=== PATIENT | female | born 1950 | race Caucasian/White ===

== ENCOUNTER 2016-09-13 13:46 | Emergency (ER) | payer MEDICARE, MEDICAID ==
[2016-09-13 13:55] VITALS: TEMP 97.9; O2SAT 98
--- NOTE | 2016-09-13 14:18 | C.PDOC ---
History Of Present Illness 66 yr old female with PMHx of arthritis, presents to the ER for evaluation of left hand pain and swelling over the 3rd and 4th finger, gradually developing over the past 3 weeks. However, patient states the pain has worsened over the past few days, " unable to close my hand completely due to pain and hand stiffness". Admits to seeing a specialist and was referred to occupational therapy. Patient denies trauma, injury, fever, chest pain, SOB, palpitation, shoulder pain, denies skin changes, redness, weakness, sensory or vascular deficits to Left hand. Ambulate to ED for evaluation, not in any apparent distress. Time Seen by Provider: 09/13/16 14:10 Chief Complaint (Nursing): Finger,Hand,&Wrist History Per: Patient History/Exam Limitations: no limitations Onset/Duration Of Symptoms: Gradual (3 weeks ) Past Medical History Reviewed: Historical Data, Nursing Documentation, Vital Signs Vital Signs: Last Vital Signs Temp 97.9 F 09/13/16 13:52 Pulse 78 09/13/16 14:57 Resp 18 09/13/16 14:57 BP 135/75 09/13/16 14:57 Pulse Ox 98 09/13/16 14:57 - Medical History PMH: Arthritis, Asthma, Bronchitis, COPD, Diabetes, HTN, Pneumonia, Seizures ( about 20 yrs. ago) Surgical History: Appendectomy, Cholecystectomy - [facility] Procedures BUNIONECTOMY NEC (09/23/14) INJECT STEROID (09/23/14) PARTIAL OSTECTOMY NEC (09/23/14) PER NERVE ADHESIOLYS NEC (09/23/14) Family History: States: No Known Family Hx - Social History Hx Tobacco Use: Yes Hx Alcohol Use: No Hx Substance Use: No - Immunization History Hx Influenza Vaccination: Yes Hx Pneumococcal Vaccination: Yes Review Of Systems Except As Marked, All Systems Reviewed And Found Negative. Constitutional: Negative for: Fever Cardiovascular: Negative for: Chest Pain Respiratory: Negative for: Shortness of Breath Musculoskeletal: Positive for: Hand Pain (Left hand, over the 3rd and 4th finger ). Negative for: Neck Pain, Shoulder Pain, Arm Pain, Back Pain Neurological: Negative for: Weakness, Numbness Physical Exam - Physical Exam Appears: Well, Non-toxic, No Acute Distress Skin: Warm, Dry, No Rash, No Ecchymosis Head: Normacephalic Extremity: Normal ROM (Left hand), Capillary Refill (<2), No Deformity, Other ( Left Hand: Mild diffuse tenderness over the 3rd & 4th phalanx with mild non specific diffuse edema. Deformity to Left hand noted c/w OA No erythema, no warmth to touch to Left hand.) Pulses: Left Radial: Normal, Right Radial: Normal Neurological/Psych: Oriented x3, Normal Speech, Normal Motor, Normal Sensation, Normal Reflexes ED Course And Treatment O2 Sat by Pulse Oximetry: 98 (RA) Pulse Ox Interpretation: Normal - Other Rad Left hand X-Ray: Interpreted by Me, Viewed By Me Interpretation: (+) osteopenia, severe DJD Progress Note: On re-evaluation, pt is afebrile, hemodynamicaly stable. NOn- toxic. Left hand: exam c/w arthralgia likely due to OA. NO skin changes. FAROM of Riht hand, no neurovascular deficits. Xray or left hand review (+) severe DD , osteopenia. No acute fx or dislocation. Pt advised and ref. to Fu with PMD, Rheumatology in 1-2 days for re-=eavl and further tx. return to ED if any worsening or new changes. Medical Decision Making Medical Decision Making: PLAN: * X-Ray - Left Hand Disposition Counseled Patient/Family Regarding: Diagnosis, Need For Followup, Rx Given - Disposition Referrals: Antony Marie DO [Doctor Oste[facility]] - Disposition: HOME/ ROUTINE Disposition Time: 14:42 Condition: STABLE Additional Instructions: Follow up with Rheumatology in 2-3 days for re-evaluation and further treatment. Return to ED if any worsening or new changes. Prescriptions: Meloxicam [Mobic] 7.5 mg PO DAILY #14 tab Instructions: Osteoarthritis (ED) Print Language: [place] - Clinical Impression Clinical Impression: Hand pain, Arthritis - PA / ASSOCIATE MANAGER / Resident Statement / has reviewed & agrees with the documentation as recorded. - Scribe Statement The provider has reviewed the documentation as recorded by the Scribe Macarena Hinton All medical record entries made by the Scribe were at my direction and personally dictated by me. I have reviewed the chart and agree that the record accurately reflects my personal performance of the history, physical exam, medical decision making, and the department course for this patient. I have also personally directed, reviewed, and agree with the discharge instructions and disposition.
[2016-09-13 14:57] VITALS: BP 135/75; PULSE 78; RESP 18
--- NOTE | 2016-09-13 15:21 | RAD ---
PROCEDURE: Left Hand Radiographs. HISTORY: pain COMPARISON: None. FINDINGS: BONES: . No fracture. JOINTS: osteoarthritic changes. SOFT TISSUES: A well corticated 3 x 1 mm ossification/calcification projects over the dorsal lateral soft tissues bordering the 5th metacarpal head on the oblique view OTHER FINDINGS: None. IMPRESSION: Degenerative joint-space narrowing proximal and distal interphalangeal joints. No prominent spurring seen. No gross erosions. Periarticular ossification/ calcification dorsal lateral aspect-5th metacarpal head level
== END 2016-09-13 14:58 | disposition home or self-care (01) ==
LOC: C.ER 13:46
DX: M13.842 Other specified arthritis, left hand (principal); M79.642 Pain in left hand

== ENCOUNTER 2017-08-18 13:02 | Emergency (ER) | payer MEDICARE, MEDICAID ==
[2017-08-18] MEDS ORDERED: MethylPREDNISolone 40 mg Vial IVP STA (13:45)
[2017-08-18] MEDS ORDERED: Albuterol-Ipratrop 3 mg / 0.5 (3 ml) UD INH STA (13:45)
[2017-08-18] MEDS ORDERED: Albuterol-Ipratrop 3 mg / 0.5 (3 ml) UD ONE (13:51)
[2017-08-18] MEDS ORDERED: Magnesium Sulfate 1 gm in D5W 1 GM/100 ML BAG IVPB ONE ×2 (13:51→14:32)
[2017-08-18] MEDS: Magnesium Sulfate 1 gm in D5W 1 GM/100 ML BAG IVPB SCH ×2 (13:55→14:31)
--- NOTE | 2017-08-18 14:00 | RAD ---
Chest x-ray single frontal view History: Shortness of breath. Comparison: 06/22/2012 Findings: Surgical clips in the right axilla and projecting over the right hilar region. Biapical pleural thickening with upper lobe granulomatous changes. Diffuse increased interstitial lung markings. Tortuous aorta. Degenerative changes in the spine. Bibasilar breast and nipple shadows. Impression: Surgical clips in the right axilla and projecting over the right hilar region. Biapical pleural thickening with upper lobe granulomatous changes. Diffuse increased interstitial lung markings. Tortuous aorta.
[2017-08-18 14:01] LABS: BASO # 0.1 K/uL (0.0-0.2); BASO % 0.7 % (0.0-2.0); EOS % 0.4 % (0.0-4.0); HEMOGLOBIN 10.9 g/dL (11.0-16.0); LYMPH # 2.2 K/uL (1.0-4.3); LYMPH % 24.7 % (20.0-40.0); MEAN CELL VOLUME 74.2 fL (81.0-99.0); MEAN CORPUSCULAR HEMOGLOBIN 24.1 pg (27.0-31.0); MEAN CORPUSCULAR HGB CONC 32.5 g/dL (33.0-37.0); MEAN PLATELET VOLUME 8.9 fL (7.2-11.7); MONO % 11.5 % (0.0-10.0); NEUT # 5.7 K/uL (1.8-7.0); NEUT % 62.7 % (50.0-75.0); RBC 4.51 Mil/uL (3.80-5.20); RED CELL DISTRIBUTION WIDTH 17.4 % (11.5-14.5); WHITE BLOOD COUNT 9.1 K/uL (4.8-10.8)
[2017-08-18 14:16] LABS: ALB/GLOB RATIO 1.1 (1.0-2.1); ALBUMIN 4.1 g/dL (3.5-5.0); ALT/SGPT 27 U/L (9-52); AST/SGOT 35 U/L (14-36); BLOOD UREA NITROGEN 10 mg/dL (7-17); CALCIUM 8.9 mg/dl (8.6-10.4); GFR AFRICAN-AMERICAN > 60; GFR NON-AFRICAN AMERICAN > 60
[2017-08-18 14:25] LABS: B-TYPE NATRIURETIC PEPTIDE 34.2 pg/mL (0-900)
[2017-08-18 15:36] VITALS: BP 117/59; PULSE 87; TEMP 98.2; O2SAT 94
[2017-08-18 15:37] VITALS: RESP 20
--- NOTE | 2017-08-18 16:17 | C.PDOC ---
History Of Present Illness 67 y/o female with history of COPD presents to ED with c/o sob for 1 month and cough for 1 week. Patient states she takes medication daily for COPD and currently denies pain, fever, nausea, vomiting, recent travel, sick contacts or any other complaints at this time. Chief Complaint (Nursing): Shortness Of Breath History Per: Patient History/Exam Limitations: no limitations Onset/Duration Of Symptoms: Days Current Symptoms Are (Timing): Still Present Initiating Event: Upper Respiratory Illness Past Medical History Reviewed: Historical Data, Nursing Documentation, Vital Signs Vital Signs: Last Vital Signs Temp 98.2 F 08/18/17 15:11 Pulse 87 08/18/17 15:11 Resp 20 08/18/17 15:11 BP 117/59 L 08/18/17 15:11 Pulse Ox 94 L 08/18/17 16:20 - Medical History PMH: Arthritis, Asthma, Bronchitis, COPD, Diabetes, HTN, Pneumonia, Seizures ( about 20 yrs. ago) Surgical History: Appendectomy, Cholecystectomy - [facility] Procedures BUNIONECTOMY NEC (09/23/14) INJECT STEROID (09/23/14) PARTIAL OSTECTOMY NEC (09/23/14) PER NERVE ADHESIOLYS NEC (09/23/14) Family History: States: No Known Family Hx - Social History Hx Tobacco Use: Yes Hx Alcohol Use: No Hx Substance Use: No - Immunization History Hx Influenza Vaccination: Yes Hx Pneumococcal Vaccination: Yes Review Of Systems Constitutional: Negative for: Fever, Chills Cardiovascular: Negative for: Chest Pain Respiratory: Positive for: Cough, Shortness of Breath Gastrointestinal: Negative for: Nausea, Vomiting Skin: Negative for: Rash Physical Exam - Physical Exam Appears: Non-toxic, No Acute Distress Skin: Warm, Dry, No Rash Head: Atraumatic, Normacephalic Eye(s): bilateral: Normal Inspection Oral Mucosa: Moist Throat: Normal, No Erythema, No Exudate Neck: Normal ROM, Supple Cardiovascular: Rhythm Regular Respiratory: No Rales, No Rhonchi, Wheezing (mild expiratory bilaterally) Gastrointestinal/Abdominal: Soft, No Tenderness, No Guarding, No Rebound Extremity: Normal ROM, No Pedal Edema, Capillary Refill (<2 seconds) Neurological/Psych: Oriented x3, Normal Speech ED Course And Treatment - Laboratory Results Result Diagrams: 08/18/17 13:45 08/18/17 13:45 ECG: Interpreted By Me, Viewed By Me ECG Rhythm: Sinus Rhythm Interpretation Of ECG: NSR, Right axis deviation Rate From EC (BPM) O2 Sat by Pulse Oximetry: 94 (RA) Medical Decision Making Medical Decision Making: On re eval lungs clear and patient feels better, agrees with plan of discharge. Disposition - [facility] - Disposition: HOME/ ROUTINE Disposition Time: 15:20 Condition: IMPROVED Additional Instructions: TOMI TEMPLE, thank you for letting us take care of you today. Your provider was Antony Ojeda DO and you were treated for COPD. The emergency medical care you received today was directed at your acute symptoms. If you were prescribed any medication, please fill it and take as directed. It may take several days for your symptoms to resolve. Return to the Emergency Department if your symptoms worsen, do not improve, or if you have any other problems. Please contact your doctor or call one of the physicians/clinics you have been referred to that are listed on the Patient Visit Information form that is included in your discharge packet. Bring any paperwork you were given at discharge with you along with any medications you are taking to your follow up visit. Our treatment cannot replace ongoing medical care by a primary care provider outside of the emergency department. Thank you for allowing the [facility] team to be part of your care today. Follow up with your primary care doctor or your scientist propagator in 2-3 days for re -evaluation and further management. TOMI TEMPLE, alvin por dejarnos atenderlo hoy. Butler proveedor fue Antony Ojeda DO y usted recibi tratamiento para la EPOC. La atencin mdica de emergencia que recibi hoy estaba dirigida a dayna sntomas agudos. Si le prescribieron algn medicamento, llnelo y tome segn las indicaciones. Dayna s ntomas pueden tardar varios husain en resolverse. Regrese al Departamento de Emergencia si dayna sntomas empeoran, no mejoran o si tiene algn otro problema. Comunquese con butler mdico o llame a aric de los mdicos / clnicas a los que fischer sido referido que figura en el formulario de Informacin de visita del paciente que se incluye en butler paquete de marie. Traiga todos los documentos que recibi al momento del marie junto con los medicamentos que est tomando en butler visita de seguimiento. Nuestro tratamiento no puede reemplazar la atencin mdica en curso por un proveedor de atencin primaria fuera del departamento de emergencia. Alvin por permitir que el equipo de [facility] m-spatial sea parte de butler cuidado hoy. Anam un seguimiento con butler mdico de atencin primaria o butler neumlogo en 2 o 3 d as para tavon nueva evaluacin y administracin adicional. Prescriptions: Albuterol HFA [Ventolin HFA 90 mcg/actuation (8 g)] 2 puff IH [id number] PRN #1 puff PRN Reason: Wheezing Azithromycin [Zithromax] 250 mg PO DAILY #6 tab predniSONE [Prednisone] 40 mg PO DAILY #10 tab Instructions: Chronic Obstructive Pulmonary Disease (COPD), Including Emphysema Forms: Gen Discharge Inst Greenlandic, [employer] (Greenlandic) Print Language: CITIZEN OF [place] - Clinical Impression Clinical Impression: COPD exacerbation - Scribe Statement The provider has reviewed the documentation as recorded by the Scribe Abby Moreno All medical record entries made by the Scribe were at my direction and personally dictated by me. I have reviewed the chart and agree that the record accurately reflects my personal performance of the history, physical exam, medical decision making, and the department course for this patient. I have also personally directed, reviewed, and agree with the discharge instructions and disposition.
--- NOTE | 2017-08-21 18:36 | CARD ---
APPROVED REPORT EKG Measurement Heart [id number] HI 154P78 [id number] <Conclusion> Sinus tachycardia Right axis deviation Poor R wave progression Abnormal ECG
== END 2017-08-18 15:56 | disposition home or self-care (01) ==
LOC: C.ER 13:02
DX: J44.1 Chronic obstructive pulmonary disease with (acute) exacerbation (principal)

== ENCOUNTER 2017-08-18 23:16 | Inpatient (IN) | payer MEDICARE, MEDICAID ==
[2017-08-19] MEDS ORDERED: Albuterol-Ipratrop 3 mg / 0.5 (3 ml) UD INH STA (00:16)
[2017-08-19] MEDS ORDERED: Albuterol-Ipratrop 3 mg / 0.5 (3 ml) UD ONE (00:26)
[2017-08-19 00:59] LABS: BASO % 0.3 % (0.0-2.0); HEMOGLOBIN 10.7 g/dL (11.0-16.0); LYMPH % 13.3 % (20.0-40.0); MEAN CELL VOLUME 74.2 fL (81.0-99.0); MEAN CORPUSCULAR HEMOGLOBIN 23.9 pg (27.0-31.0); MEAN CORPUSCULAR HGB CONC 32.2 g/dL (33.0-37.0); MEAN PLATELET VOLUME 8.8 fL (7.2-11.7); MONO # 0.2 K/uL (0.0-0.8); MONO % 2.5 % (0.0-10.0); NEUT # 6.3 K/uL (1.8-7.0); NEUT % 83.9 % (50.0-75.0); RBC 4.5 Mil/uL (3.80-5.20); WHITE BLOOD COUNT 7.5 K/uL (4.8-10.8)
[2017-08-19 01:07] LABS: INR 1.2; PROTHROMBIN TIME 13.4 SECONDS (9.7-12.2)
[2017-08-19 01:15] LABS: ALB/GLOB RATIO 1.1 (1.0-2.1); ALBUMIN 3.9 g/dL (3.5-5.0); ALT/SGPT 26 U/L (9-52); AST/SGOT 35 U/L (14-36); BLOOD UREA NITROGEN 13 mg/dL (7-17); CALCIUM 9.3 mg/dl (8.6-10.4); GFR AFRICAN-AMERICAN > 60; GFR NON-AFRICAN AMERICAN > 60
--- NOTE | 2017-08-19 01:50 | C.PDOC ---
History Of Present Illness 67 year old female with a Hx of COPD presents to the ER with a complaint of SOB for the past 1 month. Patient is also complaining of her chronic neck pain. Patient was seen earlier today in the ER for the same complaint, she improved with treatments and discharged home, however, returns with recurring SOB. Denies fever, cough, or chest pain. Chief Complaint (Nursing): Shortness Of Breath History Per: Patient History/Exam Limitations: no limitations Onset/Duration Of Symptoms: Days Current Symptoms Are (Timing): Still Present Initiating Event: Other (Not known) Current Respiratory Medications: None Associated Symptoms: denies: Fever, Chest Pain, Other (Chest pain) Recent travel outside of the [place]: No Past Medical History Reviewed: Historical Data, Nursing Documentation, Vital Signs Vital Signs: Last Vital Signs Temp 98.3 F 08/19/17 23:45 Pulse 97 H 08/19/17 23:45 Resp 20 08/19/17 23:45 BP 112/55 L 08/19/17 23:45 Pulse Ox 98 08/19/17 23:45 - Medical History PMH: Arthritis, Asthma, Bronchitis, COPD, Diabetes, HTN, Pneumonia, Seizures ( about 20 yrs. ago) Surgical History: Appendectomy, Cholecystectomy - [facility] Procedures BUNIONECTOMY NEC (09/23/14) INJECT STEROID (09/23/14) PARTIAL OSTECTOMY NEC (09/23/14) PER NERVE ADHESIOLYS NEC (09/23/14) Family History: States: Unknown Family Hx - Social History Hx Tobacco Use: Yes Hx Alcohol Use: No Hx Substance Use: No - Immunization History Hx Influenza Vaccination: Yes Hx Pneumococcal Vaccination: Yes Review Of Systems Constitutional: Negative for: Fever Cardiovascular: Negative for: Chest Pain Respiratory: Positive for: Shortness of Breath. Negative for: Cough Gastrointestinal: Negative for: Nausea, Vomiting Musculoskeletal: Positive for: Neck Pain Physical Exam - Physical Exam Appears: Non-toxic Skin: Normal Color, Warm, Dry Head: Atraumatic, Normacephalic Eye(s): bilateral: Normal Inspection Oral Mucosa: Moist Neck: Normal, No Midline Cervical Tenderness, No Paracervical Tenderness, Supple Chest: Symmetrical, No Tenderness Cardiovascular: Rhythm Regular Respiratory: No Rales, No Rhonchi, Wheezing (Mild expiratory), Other (Good air entry) Gastrointestinal/Abdominal: Soft, No Tenderness Back: No CVA Tenderness Neurological/Psych: Oriented x3, Normal Speech ED Course And Treatment - Laboratory Results Result Diagrams: 08/20/17 07:50 08/20/17 07:50 O2 Sat by Pulse Oximetry: 93 (Room air) Progress Note: Case discussed with Dr. Faith who will admit patient to her service. Disposition - Disposition Disposition: HOSPITALIZED Disposition Time: 00:20 Condition: STABLE - Clinical Impression Clinical Impression: COPD exacerbation - Scribe Statement The provider has reviewed the documentation as recorded by the Scribshorty Huerta All medical record entries made by the Keanuibe were at my direction and personally dictated by me. I have reviewed the chart and agree that the record accurately reflects my personal performance of the history, physical exam, medical decision making, and the department course for this patient. I have also personally directed, reviewed, and agree with the discharge instructions and disposition.
[2017-08-19] MEDS ORDERED: DiphenhydrAMINE 50 mg/ml Inj IVP ONE (02:47)
[2017-08-19] MEDS: Albuterol-Ipratrop 3 mg / 0.5 (3 ml) UD INH SCH ×4 (03:58→19:34)
[2017-08-19] MEDS ORDERED: (Novolin R) Insulin Human Regular 100 units/ml vial SC SCH (07:30)
[2017-08-19] MEDS: Budesonide 0.25 mg/2 ml Inhal Susp UD INH SCH ×2 (08:03→19:34)
[2017-08-19 08:36] VITALS: RESP 20
[2017-08-19] MEDS: MethylPREDNISolone 40 mg Vial IVP SCH ×2 (09:28→22:24)
[2017-08-19] MEDS: Pantoprazole 40 mg EC Tab PO SCH (09:28)
[2017-08-19] MEDS: (Novolin R) Insulin Human Regular 100 units/ml vial SC SCH ×4 (09:29→21:40)
[2017-08-19] MEDS: Enoxaparin 40 mg Syringe SC SCH (10:42)
[2017-08-19] MEDS: Azithromycin 500 MG in Sodium Chloride 0.9% 250 ML IVPB SCH (10:42)
--- NOTE | 2017-08-19 12:47 | CP.PCM.CON ---
History of Present Illness - History of Present Illness History of Present Illness: reason for consultation: shortness of breath 67-year-old female with history of COPD, diabetes, hypertension, seizure disorderwho presented to the emergency room with a complaint of SOB for the past 1 month. Patient is also complaining of her chronic neck pain. Patient was seen earlier today in the ER for the same complaint, she improved with treatments and discharged home, however, returns with recurring SOB. Review of Systems - Review of Systems All systems: reviewed and no additional remarkable complaints except (shortness of breath) Past Patient History - Infectious Disease Hx of Infectious Diseases: None - Tetanus Immunizations Tetanus Immunization: Unknown - Past Medical History & Family History Past Medical History?: Yes - Past Social History Smoking Status: Light Smoker < 10 Cigarettes Daily - CARDIAC Hx Hypertension: Yes - PULMONARY Hx Asthma: Yes Hx Bronchitis: Yes Hx Chronic Obstructive Pulmonary Disease (COPD): Yes Hx Pneumonia: Yes - NEUROLOGICAL Hx Seizures: Yes (about 20 yrs. ago) - HEENT Hx HEENT Problems: Yes Hx Cataracts: Yes Other/Comment: Use eyeglasses for reading - RENAL Hx Chronic Kidney Disease: No - ENDOCRINE/METABOLIC Hx Endocrine Disorders: Yes Hx Diabetes Mellitus Type 2: Yes - HEMATOLOGICAL/ONCOLOGICAL Hx Human Immunodeficiency Virus (HIV): No - INTEGUMENTARY Hx Dermatological Problems: No - MUSCULOSKELETAL/RHEUMATOLOGICAL Hx Arthritis: Yes - GASTROINTESTINAL Hx Gastrointestinal Disorders: No - GENITOURINARY/GYNECOLOGICAL Hx Genitourinary Disorders: No - PSYCHIATRIC Hx Substance Use: No - SURGICAL HISTORY Hx Appendectomy: Yes Hx Cholecystectomy: Yes - ANESTHESIA Hx Anesthesia: Yes Hx Anesthesia Reactions: No Hx Malignant Hyperthermia: No Meds Allergies/Adverse Reactions: Allergies Allergy/AdvReac Type Severity Reaction Status Date / Time iron Allergy REDNESS Verified 08/18/17 13:10 - Medications Medications: Current Medications Albuterol/Ipratropium (Duoneb 3 Mg/0.5 Mg (3 Ml) Ud) 3 ml INH RQ6 [facility] Last Admin: 08/19/17 08:03 Dose: 3 ml Amlodipine Besylate (Norvasc) 5 mg PO DAILY [facility] Last Admin: 08/19/17 09:27 Dose: 5 mg Aspirin (Ecotrin) 81 mg PO DAILY [facility] Last Admin: 08/19/17 09:28 Dose: 81 mg Budesonide (Pulmicort Respules) 0.25 mg INH RQ12 [facility] Last Admin: 08/19/17 08:03 Dose: 0.25 mg Enoxaparin Sodium (Lovenox) 40 mg SC DAILY [facility] Last Admin: 08/19/17 10:42 Dose: 40 mg Glimepiride (Amaryl) 2 mg PO ACB [facility] Last Admin: 08/19/17 09:27 Dose: 2 mg Azithromycin 500 mg/ Sodium (Chloride) 250 mls @ 250 mls/hr IVPB DAILY ANUJA PRN Reason: Protocol Last Admin: 08/19/17 10:42 Dose: 250 mls/hr Insulin Human Regular (Novolin R) 0 unit SC ACHS [facility]UJA PRN Reason: Protocol Last Admin: 08/19/17 12:03 Dose: 2 units Methylprednisolone (Solu-Medrol) 40 mg IVP Q12 [facility] Last Admin: 08/19/17 09:28 Dose: 40 mg Pantoprazole Sodium (Protonix Ec Tab) 40 mg PO DAILY [facility] Last Admin: 08/19/17 09:28 Dose: 40 mg Pregabalin (Lyrica) 25 mg PO BID [facility] Last Admin: 08/19/17 05:33 Dose: 25 mg Fluticasone/Salmeterol (Advair Diskus 500/50) 1 puff INH RQ12 [facility] Physical Exam - Head Exam Head Exam: ATRAUMATIC, NORMOCEPHALIC - ENT Exam ENT Exam: Mucous Membranes Moist - Neck Exam Neck exam: Positive for: Normal Inspection - Respiratory Exam Respiratory Exam: Decreased Breath Sounds - Cardiovascular Exam Cardiovascular Exam: REGULAR RHYTHM - GI/Abdominal Exam GI & Abdominal Exam: Normal Bowel Sounds, Soft - Extremities Exam Extremities exam: Positive for: normal inspection - Neurological Exam Neurological exam: Alert, Oriented x3 Results - Vital Signs Recent Vital Signs: Last Vital Signs Temp 98.3 F 08/19/17 08:35 Pulse 92 H 08/19/17 08:35 Resp 20 08/19/17 08:35 BP 123/40 L 08/19/17 08:35 Pulse Ox 95 08/19/17 08:35 - Labs Result Diagrams: 08/19/17 00:46 08/19/17 01:02 Labs: Laboratory Results - last 24 hr 08/18/17 08/19/17 08/19/17 23:57 00:46 01:02 WBC 7.5 RBC 4.50 Hgb 10.7 L Hct 33.4 L MCV 74.2 L MCH 23.9 L MCHC 32.2 L RDW 17.0 H Plt Count 172 MPV 8.8 Neut % (Auto) 83.9 H Lymph % (Auto) 13.3 L [place] % (Auto) 2.5 Eos % (Auto) 0.0 Baso % (Auto) 0.3 Neut # (Auto) 6.3 Lymph # (Auto) 1.0 [place] # (Auto) 0.2 Eos # (Auto) 0.0 Baso # (Auto) 0.0 PT 13.4 H INR 1.2 APTT 34 Sodium Potassium Chloride Carbon Dioxide Anion Gap BUN Creatinine Est GFR ( Amer) Est GFR (Non-Af Amer) POC Glucose (mg/dL) 232 H Random Glucose Calcium Total Bilirubin AST ALT Alkaline Phosphatase Total Protein Albumin Globulin Albumin/Globulin Ratio 08/19/17 08/19/17 08/19/17 01:02 06:27 11:22 WBC RBC Hgb Hct MCV MCH MCHC RDW Plt Count MPV Neut % (Auto) Lymph % (Auto) [place] % (Auto) Eos % (Auto) Baso % (Auto) Neut # (Auto) Lymph # (Auto) [place] # (Auto) Eos # (Auto) Baso # (Auto) PT INR APTT Sodium 142 Potassium 4.0 Chloride 104 Carbon Dioxide 27 Anion Gap 15 BUN 13 Creatinine 0.8 Est GFR ( Amer) > 60 Est GFR (Non-Af Amer) > 60 POC Glucose (mg/dL) 163 H 242 H Random Glucose 237 H Calcium 9.3 Total Bilirubin 0.5 AST 35 ALT 26 Alkaline Phosphatase 145 H D Total Protein 7.5 Albumin 3.9 Globulin 3.6 Albumin/Globulin Ratio 1.1 Assessment & Plan (1) COPD exacerbation Status: Acute Comment: 67-year-old female with long history of smoking complaining of shortness of breath for the last 1 month. Continue IV steroids. Nebulizer treatment. Pulmonary function test. Long-acting bronchodilators. Continue azithromycin. Patient advised to stop smoking
[2017-08-19] MEDS: Fluticasone-Salmeterol 500-50mcg Diskus INH SCH (19:33)
[2017-08-20] MEDS: Albuterol-Ipratrop 3 mg / 0.5 (3 ml) UD INH SCH ×4 (04:53→20:37)
--- NOTE | 2017-08-20 06:43 | HP ---
The patient is a 67-year-old female. The patient was seen and examined on the bedside on 08/19/2017. Daughter was sitting on the bedside also. CHIEF COMPLAINT: Shortness of breath, coughing. HISTORY OF PRESENT ILLNESS: Ms. Claudette Major is a 67-year-old lady with history of COPD who came to the Emergency Room complaining of shortness of breath for the past one month. The patient is also complaining of chronic neck pain. The patient was seen earlier in ER at the day of admission for the same complaint, which improved with treatment, discharged home, then returns with recurrent shortness of breath. No fever, no chills. No nausea or vomiting, diarrhea. No hematuria or hematochezia. No swelling of leg. No chest pain, no palpitation. PAST MEDICAL HISTORY: Arthritis, asthma, bronchitis, COPD, diabetes mellitus, hypertension, pneumonia, seizures about 20 years ago, appendectomy, cholecystectomy, bunionectomy, partial osteectomy. FAMILY HISTORY: Father and mother, noncontributory. HABITS: Tobacco, yes. Alcohol, no. Substance abuse, no. REVIEW OF SYSTEMS: The patient was seen and examined at the bedside. Daughter was sitting at the bedside also. She did ask questions for me. Still having a little bit shortness of breath. Neck pain is better. No fever, no chills. No chest pain. No coughing. No nausea or vomiting. PHYSICAL EXAMINATION: VITAL SIGNS: Temperature 98, pulse 104, respiratory rate 20, blood pressure 133/53, pulse oximetry of 93. HEENT: Head, normocephalic and atraumatic. Eyes, PERRLA. Extraocular muscles intact. Conjunctivae clear. Nose patent. Mucous membranes moist. NECK: Supple. No carotid bruits. No thyromegaly. CHEST: Wheezing bilaterally. HEART: S1 and S2 positive. ABDOMEN: Soft. Bowel sounds present. No organomegaly. EXTREMITIES: No edema. No cyanosis. NEUROLOGICAL: The patient is awake, alert, moving all four extremities. No focal deficits. LABORATORY DATA: White blood cell is 7.5, hemoglobin 10.7, hematocrit 33.7, and platelets 172. Sodium 142, potassium 4, BUN 13, creatinine is 0.8, glucose 237. ASSESSMENT AND PLAN: 1. Ms. Claudette Major is a 67-year-old lady who came with exacerbation of chronic obstructive pulmonary disease, asthma, arthritis, bronchitis, diabetes mellitus, hypertension, pneumonia, seizures, appendectomy, cholecystectomy. She was seen two times in emergency room. First time got treatment and discharged home, but came back in the evening with the same complaints. Now, she is seen by Dr. Rajendra Bazan, bottle house quality control technician. 2. History of heavy smoking. oxygen nebulizers given, bronchodilators given, started antibiotics by me. Urged to quit smoking, discussion done with patient and patient's daughter. Nicotine patch is given. Appreciate Dr. Rajendra Bazan's input. We will follow. Ina Faith MD MTDD
[2017-08-20] MEDS: (Novolin R) Insulin Human Regular 100 units/ml vial SC SCH ×4 (08:02→21:23)
[2017-08-20 08:16] LABS: MEAN CELL VOLUME 74.6 fL (81.0-99.0); MEAN CORPUSCULAR HEMOGLOBIN 23.8 pg (27.0-31.0); MEAN PLATELET VOLUME 9.3 fL (7.2-11.7); RBC 4.19 Mil/uL (3.80-5.20)
[2017-08-20] MEDS: Budesonide 0.25 mg/2 ml Inhal Susp UD INH SCH ×2 (08:16→20:37)
[2017-08-20] MEDS: Fluticasone-Salmeterol 500-50mcg Diskus INH SCH ×2 (08:16→20:37)
[2017-08-20 08:34] LABS: IRON 13 ug/dL (37-170)
[2017-08-20 08:38] LABS: BLOOD UREA NITROGEN 23 mg/dL (7-17); CALCIUM 9.3 mg/dl (8.6-10.4); GFR AFRICAN-AMERICAN > 60; GFR NON-AFRICAN AMERICAN 55; HDL CHOLESTEROL 50 mg/dL (30-70)
[2017-08-20 08:44] LABS: % IRON SATURATION 2 (20-55); TOTAL IRON BINDING CAPACITY 538 ug/dL (250-450)
[2017-08-20 08:46] LABS: LDL CHOLESTEROL 60 mg/dL (0-129)
[2017-08-20 09:34] LABS: FOLATE 7.6 ng/mL
[2017-08-20] MEDS: Azithromycin 500 MG in Sodium Chloride 0.9% 250 ML IVPB SCH (09:57)
[2017-08-20] MEDS: Pantoprazole 40 mg EC Tab PO SCH (09:59)
[2017-08-20] MEDS: Enoxaparin 40 mg Syringe SC SCH (09:59)
[2017-08-20] MEDS: MethylPREDNISolone 40 mg Vial IVP SCH ×2 (09:59→21:23)
--- NOTE | 2017-08-20 17:54 | CP.PCM.PN ---
Subjective - Date & Time of Evaluation Date of Evaluation: 08/20/17 Time of Evaluation: 16:00 - Subjective Subjective: patient seen and examined Still complaining of shortness of breath , cough and wheezing Afebrile No chest pain Objective - Vital Signs/Intake and Output Vital Signs (last 24 hours): Temp Pulse Resp BP Pulse Ox 98.1 F 95 H 20 115/63 97 08/20/17 15:43 08/20/17 15:43 08/20/17 15:43 08/20/17 15:43 08/20/17 15:43 Intake and Output: 08/20/17 08/20/17 06:59 18:59 Intake Total 120 240 Balance 120 240 - Medications Medications: Current Medications Albuterol/Ipratropium (Duoneb 3 Mg/0.5 Mg (3 Ml) Ud) 3 ml INH RQ6 [facility] Last Admin: 08/20/17 12:59 Dose: Not Given Amlodipine Besylate (Norvasc) 5 mg PO DAILY [facility] Last Admin: 08/20/17 09:59 Dose: 5 mg Aspirin (Ecotrin) 81 mg PO DAILY [facility] Last Admin: 08/20/17 09:59 Dose: 81 mg Budesonide (Pulmicort Respules) 0.25 mg INH RQ12 [facility] Last Admin: 08/20/17 08:16 Dose: 0.25 mg Enoxaparin Sodium (Lovenox) 40 mg SC DAILY [facility] Last Admin: 08/20/17 09:59 Dose: 40 mg Glimepiride (Amaryl) 2 mg PO ACB [facility] Last Admin: 08/20/17 08:03 Dose: 2 mg Azithromycin 500 mg/ Sodium (Chloride) 250 mls @ 250 mls/hr IVPB DAILY [facility] PRN Reason: Protocol Last Admin: 08/20/17 09:57 Dose: 250 mls/hr Insulin Human Regular (Novolin R) 0 unit SC ACHS [facility] PRN Reason: Protocol Last Admin: 08/20/17 17:29 Dose: 2 units Methylprednisolone (Solu-Medrol) 40 mg IVP Q12 [facility] Last Admin: 08/20/17 09:59 Dose: 40 mg Nicotine (Nicoderm Cq) 1 patch TD DAILY [facility] Last Admin: 08/20/17 11:00 Dose: 1 patch Pantoprazole Sodium (Protonix Ec Tab) 40 mg PO DAILY [facility] Last Admin: 08/20/17 09:59 Dose: 40 mg Pneumococcal Polyvalent Vaccine (Pneumovax 23 Vaccine) 0.5 ml IM .ONCE ONE Stop: 08/21/17 14:01 Pregabalin (Lyrica) 25 mg PO BID [facility] Last Admin: 08/20/17 17:30 Dose: 25 mg Fluticasone/Salmeterol (Advair Diskus 500/50) 1 puff INH RQ12 [facility] Last Admin: 08/20/17 08:16 Dose: 1 puff - Labs Labs: 08/20/17 07:50 08/20/17 07:50 PT 13.4 SECONDS (9.7-12.2) H 08/19/17 01:02 INR 1.2 08/19/17 01:02 APTT 34 SECONDS (21-34) 08/19/17 01:02 - Head Exam Head Exam: ATRAUMATIC, NORMOCEPHALIC - ENT Exam ENT Exam: Mucous Membranes Moist - Neck Exam Neck Exam: Normal Inspection - Respiratory Exam Respiratory Exam: Rhonchi, Wheezes - Cardiovascular Exam Cardiovascular Exam: REGULAR RHYTHM - GI/Abdominal Exam GI & Abdominal Exam: Soft, Normal Bowel Sounds - Extremities Exam Extremities Exam: Normal Inspection Assessment and Plan (1) COPD exacerbation Assessment & Plan: Steroids to 40 every 8 hours Continue nebulizer treatment Continue antibiotics spiriva Status: Acute
--- NOTE | 2017-08-21 00:44 | PN ---
DATE: 08/20/2017 SUBJECTIVE: The patient is a 67-year-old female. The patient was seen and examined at the bedside on 08/20/2017. Still coughing, wheezing, and shortness of breath. Daughter was sitting on the bedside, also she did translation for me. Cough and wheezing are little bit better. No fever. No chills. No nausea, vomiting, or diarrhea. No hematuria or hematochezia. No swelling of the legs. No chest pain. No palpitations. PHYSICAL EXAMINATION: VITAL SIGNS: Temperature 98.1, pulse 95, respiratory rate 20, blood pressure 115/63, pulse oximetry 97. HEENT: Head, normocephalic and atraumatic. Eyes, PERRLA. Extraocular muscles intact. Conjunctivae clear. Nose is patent. Mucous membranes moist. NECK: Supple. No carotid bruit, JVD or thyromegaly. CHEST: Bilaterally symmetrical. HEART: S1 and S2 positive. LUNGS: Clear to auscultation. ABDOMEN: Soft. Bowel sounds positive. No organomegaly. EXTREMITIES: No edema. No cyanosis. NEUROLOGICAL: The patient is awake, alert. Moving all four extremities. No focal deficits. MEDICATIONS: DuoNeb, Norvasc, Ecotrin, Pulmicort, Lovenox, Amaryl, azithromycin, insulin, Solu-Medrol, Nicoderm, Protonix, Lyrica, Advair. LABORATORY DATA: White blood cells 13, hemoglobin 10, hematocrit 31.2, platelet noted . Sodium 145, potassium 4.5, BUN 23, creatinine 1, glucose 159. ASSESSMENT AND PLAN: Ms. Claudette Major is a 67-year-old lady, came with chronic obstructive lung disease exacerbation, getting steroids every 8 hours. Continue nebulizer treatment. Continue antibiotics and Spiriva. Seen by the clinical psychologist, Dr. Rajendra Bazan. The patient has leukocytosis, anemia, hyperglycemia, iron deficiency, rule out hypothyroidism. We will give supplement of iron. Gastrointestinal and deep venous thrombosis prophylaxis. Repeat labs. We will follow up. Ina Faith MD [facility] # [id number] [email or web address]
[2017-08-21] MEDS: Albuterol-Ipratrop 3 mg / 0.5 (3 ml) UD INH SCH ×3 (01:23→13:32)
[2017-08-21] MEDS: MethylPREDNISolone 40 mg Vial IVP SCH ×2 (05:30→14:02)
[2017-08-21] MEDS: Budesonide 0.25 mg/2 ml Inhal Susp UD INH SCH (07:48)
[2017-08-21] MEDS: Fluticasone-Salmeterol 500-50mcg Diskus INH SCH (07:48)
[2017-08-21] MEDS: (Novolin R) Insulin Human Regular 100 units/ml vial SC SCH ×2 (08:28→12:26)
[2017-08-21 08:53] VITALS: BP 135/61; PULSE 100; TEMP 98; O2SAT 98
[2017-08-21] MEDS ORDERED: Ferrous Fum/Folic Acid/IF/VI 1 Cap PO SCH (10:00)
[2017-08-21] MEDS: Enoxaparin 40 mg Syringe SC SCH (10:55)
[2017-08-21] MEDS: Pantoprazole 40 mg EC Tab PO SCH (10:56)
[2017-08-21] MEDS: Azithromycin 500 MG in Sodium Chloride 0.9% 250 ML IVPB SCH (10:56)
[2017-08-21] MEDS ORDERED: Pneumococcal 23-Valent Vaccine IM ONE (14:00)
--- NOTE | 2017-08-21 15:06 | CP.PCM.PN ---
Subjective - Date & Time of Evaluation Date of Evaluation: 08/21/17 Time of Evaluation: 15:05 - Subjective Subjective: PT SEEN TODAY BY DR. DUNAWAY AND CLEARED FOR D/C HOME. ALL RX SENT TO PT'S PHARMACY PER DR. DUNAWAY'S REQUEST. PT TO F/U WITH DR. DUNAWAY IN THE OFFICE IN 1 WEEK. NO FURTHER ORDERS. -FOLLOW UP WITH DR. DUNAWAY OR YOUR PRIMARY DOCTOR IN THE OFFICE IN 5-7 DAYS--- CALL THE OFFICE TO MAKE YOUR APPOINTMENT. -CONTINUE HOME MEDICATIONS USUAL. -PER DR. DUNAWAY'S REQUEST, CONTINUE TAKING THE FOLLOWING MEDICATIONS: 1) Z-KIKI (ZITHROMAX; ANTIBIOTIC)---TAKE TABLETS EXACTLY PRESCRIBED. 2) PREDNISONE (STEROID FOR YOUR BREATHING)---TAKE FOLLOWS AND DON'T SKIP ANY DOSES: 40 MG (4 TABLETS) BY MOUTH ONCE A DAY FOR 3 DAYS, THEN 30 MG (3 TABLETS) BY MOUTH ONCE A DAY FOR 3 DAYS, THEN 20 MG (2 TABLETS) BY MOUTH ONCE A DAY FOR 3 DAYS, THEN 10 MG (1 TABLET) BY MOUTH ONCE A DAY FOR 3 DAYS. -FOR ANY FURTHER QUESTIONS OR CONCERNS, CONTACT DR. DUNAWAY. Objective - Vital Signs/Intake and Output Vital Signs (last 24 hours): Temp Pulse Resp BP Pulse Ox 98.0 F 100 H 20 135/61 98 08/21/17 08:52 08/21/17 08:52 08/21/17 08:52 08/21/17 08:52 08/21/17 08:52 Intake and Output: 08/21/17 08/21/17 06:59 18:59 Intake Total 240 Balance 240 - Medications Medications: Current Medications Albuterol/Ipratropium (Duoneb 3 Mg/0.5 Mg (3 Ml) Ud) 3 ml INH RQ6 [facility] Last Admin: 08/21/17 13:32 Dose: 3 ml Amlodipine Besylate (Norvasc) 5 mg PO DAILY [facility] Last Admin: 08/21/17 10:55 Dose: 5 mg Aspirin (Ecotrin) 81 mg PO DAILY [facility] Last Admin: 08/21/17 10:55 Dose: 81 mg Budesonide (Pulmicort Respules) 0.25 mg INH RQ12 [facility] Last Admin: 08/21/17 07:48 Dose: 0.25 mg Enoxaparin Sodium (Lovenox) 40 mg SC DAILY [facility] Last Admin: 08/21/17 10:55 Dose: 40 mg Glimepiride (Amaryl) 2 mg PO ACB [facility] Last Admin: 08/21/17 08:29 Dose: 2 mg Azithromycin 500 mg/ Sodium (Chloride) 250 mls @ 250 mls/hr IVPB DAILY [facility] PRN Reason: Protocol Last Admin: 08/21/17 10:56 Dose: 250 mls/hr Insulin Human Regular (Novolin R) 0 unit SC ACHS [facility] PRN Reason: Protocol Last Admin: 08/21/17 12:26 Dose: 2 units Iron (Ferocon) 1 cap PO DAILY [facility] Last Admin: 08/21/17 10:56 Dose: 1 cap Methylprednisolone (Solu-Medrol) 40 mg IVP Q8 [facility] Last Admin: 08/21/17 14:02 Dose: 40 mg Nicotine (Nicoderm Cq) 1 patch TD DAILY [facility] Last Admin: 08/21/17 10:55 Dose: 1 patch Pantoprazole Sodium (Protonix Ec Tab) 40 mg PO DAILY [facility] Last Admin: 08/21/17 10:56 Dose: 40 mg Pregabalin (Lyrica) 25 mg PO BID [facility] Last Admin: 08/21/17 10:56 Dose: 25 mg Fluticasone/Salmeterol (Advair Diskus 500/50) 1 puff INH RQ12 [facility] Last Admin: 08/21/17 07:48 Dose: 1 puff - Labs Labs: 08/20/17 07:50 08/20/17 07:50 PT 13.4 SECONDS (9.7-12.2) H 08/19/17 01:02 INR 1.2 08/19/17 01:02 APTT 34 SECONDS (21-34) 08/19/17 01:02
--- NOTE | 2017-08-21 16:07 | CP.PCM.PN ---
Subjective - Date & Time of Evaluation Date of Evaluation: 08/21/17 Time of Evaluation: 14:00 - Subjective Subjective: the patient seen and examined Cough and shortness of breath much improved Afebrile Discharge home on prednisone Nebulizer treat Follow up in the office Pulmonary function test Objective - Vital Signs/Intake and Output Vital Signs (last 24 hours): Temp Pulse Resp BP Pulse Ox 98.0 F 100 H 20 135/61 98 08/21/17 08:52 08/21/17 08:52 08/21/17 08:52 08/21/17 08:52 08/21/17 08:52 Intake and Output: 08/21/17 08/21/17 06:59 18:59 Intake Total 240 Balance 240 - Medications Medications: Current Medications Albuterol/Ipratropium (Duoneb 3 Mg/0.5 Mg (3 Ml) Ud) 3 ml INH RQ6 [facility] Last Admin: 08/21/17 13:32 Dose: 3 ml Amlodipine Besylate (Norvasc) 5 mg PO DAILY [facility] Last Admin: 08/21/17 10:55 Dose: 5 mg Aspirin (Ecotrin) 81 mg PO DAILY [facility] Last Admin: 08/21/17 10:55 Dose: 81 mg Budesonide (Pulmicort Respules) 0.25 mg INH RQ12 [facility] Last Admin: 08/21/17 07:48 Dose: 0.25 mg Enoxaparin Sodium (Lovenox) 40 mg SC DAILY [facility] Last Admin: 08/21/17 10:55 Dose: 40 mg Glimepiride (Amaryl) 2 mg PO ACB [facility] Last Admin: 08/21/17 08:29 Dose: 2 mg Azithromycin 500 mg/ Sodium (Chloride) 250 mls @ 250 mls/hr IVPB DAILY [facility] PRN Reason: Protocol Last Admin: 08/21/17 10:56 Dose: 250 mls/hr Insulin Human Regular (Novolin R) 0 unit SC ACHS [facility] PRN Reason: Protocol Last Admin: 08/21/17 12:26 Dose: 2 units Iron (Ferocon) 1 cap PO DAILY [facility] Last Admin: 08/21/17 10:56 Dose: 1 cap Methylprednisolone (Solu-Medrol) 40 mg IVP Q8 [facility] Last Admin: 08/21/17 14:02 Dose: 40 mg Nicotine (Nicoderm Cq) 1 patch TD DAILY [facility] Last Admin: 08/21/17 10:55 Dose: 1 patch Pantoprazole Sodium (Protonix Ec Tab) 40 mg PO DAILY [facility] Last Admin: 08/21/17 10:56 Dose: 40 mg Pregabalin (Lyrica) 25 mg PO BID [facility] Last Admin: 08/21/17 10:56 Dose: 25 mg Fluticasone/Salmeterol (Advair Diskus 500/50) 1 puff INH RQ12 [facility] Last Admin: 08/21/17 07:48 Dose: 1 puff - Labs Labs: 08/20/17 07:50 08/20/17 07:50 PT 13.4 SECONDS (9.7-12.2) H 08/19/17 01:02 INR 1.2 08/19/17 01:02 APTT 34 SECONDS (21-34) 08/19/17 01:02 Assessment and Plan (1) COPD exacerbation Status: Acute
--- NOTE | 2017-08-21 18:35 | CARD ---
APPROVED REPORT EKG Measurement Heart [id number] IN 118P25 [id number] <Conclusion> Normal sinus rhythm Rightward axis Low voltage QRS Borderline ECG
--- NOTE | 2017-08-21 18:37 | CARD ---
APPROVED REPORT EKG Measurement Heart [id number] ME 138P83 [id number] <Conclusion> Normal sinus rhythm Right axis deviation Pulmonary disease pattern Abnormal ECG
--- NOTE | 2017-08-21 20:28 | PQF ---
PROVIDER RESPONSE TEXT: H/o pneumonia / bronchitis , but came with exerbation of asthma / copd REVIEWER QUERY TEXT: Clinical Validity Additional clinical indicators are required to support your documented diagnosis of ___Pn eumonia / Bronchitis Please respond and also state in your next progress note whether: -- Condition exists and also please provide clinical indicators to support the diagnosis -- Condition does not exist and also please provide amended documentation in the medical record to thais rdz -- Unable to provide additional clarity regarding the diagnosis -- Other, please specify The patient's Clinical Indicators include: 67 Y O F with c/o recurring SOB Resp: (+) Wheezing( Mild Expiratory) CXR--> Diffuse increased interstitial lung markings ED Clinical Impression: COPD Exacerbation Pulm Cx: COPD Exacerbation Query created by: Faiza Bernal on 08/21/2017 11:44 AM Electronically signed by: Ina Faith MD 08/21/2017 8:25 PM
== END 2017-08-21 16:00 | disposition home or self-care (01) | DRG 202 ==
LOC: C.ER 23:16 → C.9E 08-19 00:18 → C.6T 08-19 01:39 → INTOOBSV 08-19 22:31 → OBSVTOIN 08-19 22:31
PROVIDERS: ADMIT Internal Medicine; ATTEND Internal Medicine
DX: J45.901 Unspecified asthma with (acute) exacerbation (principal); J44.1 Chronic obstructive pulmonary disease with (acute) exacerbation; Z87.01 Personal history of pneumonia (recurrent); I10 Essential (primary) hypertension; G89.29 Other chronic pain; D50.9 Iron deficiency anemia, unspecified; M54.2 Cervicalgia; F17.210 Nicotine dependence, cigarettes, uncomplicated; E11.65 Type 2 diabetes mellitus with hyperglycemia; R56.9 Unspecified convulsions; M19.90 Unspecified osteoarthritis, unspecified site

== ENCOUNTER 2017-12-29 11:25 | Inpatient (IN) | payer MEDICARE, MEDICAID ==
[2017-12-29] MEDS ORDERED: Albuterol-Ipratrop 3 mg / 0.5 (3 ml) UD INH STA (12:29)
[2017-12-29] MEDS ORDERED: Albuterol 0.083% Inhal Sol (2.5 mg/3 mL) UD IH STA ×2 (12:29→13:33)
[2017-12-29 12:50] LABS: URINE BACTERIA RARE (<OCC); URINE BILIRUBIN NEGATIVE (NEGATIVE); URINE BLOOD NEGATIVE (NEGATIVE); URINE CLARITY Clear (Clear); URINE COLOR Yellow (YELLOW); URINE GLUCOSE (UA) NORMAL (Normal); URINE LEUKOCYTE ESTERASE 1+ Leu/uL (Negative); URINE PROTEIN NEGATIVE (NEGATIVE); URINE UROBILINOGEN NORMAL mg/dL (0.2-1.0)
[2017-12-29 12:52] LABS: BASO # 0.1 K/uL (0.0-0.2); EOS # 0.1 K/uL (0.0-0.7); EOS % 1.4 % (0.0-4.0); HEMOGLOBIN 11.1 g/dL (11.0-16.0); LYMPH # 1.4 K/uL (1.0-4.3); LYMPH % 19.6 % (20.0-40.0); MEAN CORPUSCULAR HEMOGLOBIN 22.7 pg (27.0-31.0); MEAN CORPUSCULAR HGB CONC 31.8 g/dL (33.0-37.0); MEAN PLATELET VOLUME 7.9 fL (7.2-11.7); MONO # 0.7 K/uL (0.0-0.8); RBC 4.89 Mil/uL (3.80-5.20); RED CELL DISTRIBUTION WIDTH 18.9 % (11.5-14.5); WHITE BLOOD COUNT 7.3 K/uL (4.8-10.8)
[2017-12-29 12:54] LABS: MEAN CELL VOLUME 71.4 fL (81.0-99.0)
[2017-12-29 12:55] LABS: INR 1.1; PROTHROMBIN TIME 12.3 SECONDS (9.7-12.2)
[2017-12-29 13:00] LABS: ALBUMIN 3.9 g/dL (3.5-5.0); ALT/SGPT 20 U/L (9-52); AST/SGOT 36 U/L (14-36); BLOOD UREA NITROGEN 14 mg/dL (7-17); CALCIUM 9.1 mg/dl (8.6-10.4); GFR NON-AFRICAN AMERICAN > 60
[2017-12-29 13:12] LABS: B-TYPE NATRIURETIC PEPTIDE 36.7 pg/mL (0-900); CK-MB 1.92 ng/mL (0.0-3.38)
[2017-12-29] MEDS ORDERED: Albuterol 0.083% Inhal Sol (2.5 mg/3 mL) UD ONE ×2 (13:12→14:07)
[2017-12-29] MEDS ORDERED: Albuterol-Ipratrop 3 mg / 0.5 (3 ml) UD ONE (13:12)
--- NOTE | 2017-12-29 13:22 | C.PDOC ---
History Of Present Illness 67-year-old female presents to the ED for evaluation of nonproductive cough, wheezing, and shortness of breath for 2 weeks. Patient reports she was seen by her PMD, prescribed Prednisone - first dose taken 6am today. She notes at 8am today she felt weak, light-headed, and had near syncopal episode. Patient is concerned that her symptoms may be due to a reaction from the Prednisone. She denies chest pain, fever, chills, palpitations, headache, dizziness, visual changes, slurred speech, facial droop, extremity weakness, sensory changes, or any other associated symptoms. Time Seen by Provider: 12/29/17 12:09 Chief Complaint (Nursing): Shortness Of Breath History Per: Patient History/Exam Limitations: no limitations Onset/Duration Of Symptoms: Days (2 weeks ) Current Symptoms Are (Timing): Still Present Severity: Moderate Past Medical History Reviewed: Historical Data, Nursing Documentation, Vital Signs Vital Signs: Last Vital Signs Temp 97.9 F 12/29/17 11:34 Pulse 99 H 12/29/17 11:34 Resp 20 12/29/17 11:34 BP 133/71 12/29/17 11:34 Pulse Ox 100 12/29/17 11:34 - Medical History PMH: Arthritis, Asthma, Bronchitis, COPD, Diabetes, HTN, Pneumonia, Seizures (about 20 yrs. ago) Surgical History: Appendectomy, Cholecystectomy - [facility] Procedures BUNIONECTOMY NEC (09/23/14) INJECT STEROID (09/23/14) PARTIAL OSTECTOMY NEC (09/23/14) PER NERVE ADHESIOLYS NEC (09/23/14) Family History: States: No Known Family Hx - Social History Hx Tobacco Use: Yes Hx Alcohol Use: No Hx Substance Use: No - Immunization History Hx Influenza Vaccination: Yes Hx Pneumococcal Vaccination: Yes Review Of Systems Constitutional: Positive for: Weakness (generalized ). Negative for: Fever, Chills Eyes: Negative for: Vision Change Cardiovascular: Positive for: Light Headedness. Negative for: Chest Pain, Palpitations Respiratory: Positive for: Cough (nonproductive.), Shortness of Breath, Wheezing Gastrointestinal: Negative for: Nausea, Vomiting, Abdominal Pain, Diarrhea Neurological: Negative for: Weakness, Numbness, Headache, Other (slurred speach. facial droop. ) Physical Exam - Physical Exam Appears: Well, Non-toxic, Other (speaking in full sentences) Skin: Normal Color, Warm, Dry Eye(s): bilateral: Normal Inspection Oral Mucosa: Moist Neck: Supple Cardiovascular: Rhythm Regular, Murmur (3/6 holoystolic murmur) Respiratory: No Accessory Muscle Use, Rales (faint rales at the bases bilaterally.), No Rhonchi, Wheezing (expiratory wheezing bilaterally.) Gastrointestinal/Abdominal: Normal Exam, Bowel Sounds, Soft, No Tenderness Extremity: Normal ROM (x4), No Tenderness, No Pedal Edema, No Calf Tenderness, No Deformity, No Swelling Pulses: Left Dorsalis Pedis: Normal, Right Dorsalis Pedis: Normal Neurological/Psych: Oriented x3, Normal Speech, Normal Cognition, Normal Motor, Normal Sensation ED Course And Treatment - Laboratory Results Result Diagrams: 01/06/18 08:11 01/06/18 08:11 ECG: Interpreted By Me, Viewed By Me (NSR 93 bpm, right axis deviation, no acute ST/T wave changes) ECG Rhythm: Sinus Rhythm ECG Interpretation: No Acute Changes Rate From EC O2 Sat by Pulse Oximetry: 100 (RA) Pulse Ox Interpretation: Normal - Other Rad CXR X-Ray: Interpreted by Me, Viewed By Me, Read By Radiologist Interpretation: CXR viewed by me: No infiltrates, surgical clips: right axilla. FINDINGS: LUNGS: The lungs are well inflated and clear. PLEURA: No pneumoth orax or pleural effusion. CARDIOVASCULAR: The heart is normal in size. No aortic atherosclerotic calcifications present. OSSEOUS STRUCTURES: Within normal limits for the patient's age. VISUALIZED UPPER ABDOMEN: Normal. OTHER FINDINGS: There are multiple surgical clips in the right axilla. IMPRESSION: No active pulmonary disease. Progress Note: Blood work, EKG, CXR, UA ordered and reviewed. Patient given IV solumedrol, albuterol neb treatments. Progress/Update. 1:31pm : Spoke with Dr. Gallo regarding patient. - Physician Consult Information Physician Contacted: David Gallo Outcome Of Conversation: Discussed patient with Dr. Gallo, agrees with admission for COPD exacerbation, UTI, generalized weakness. Critical Care Time - Critical Care Note Total Time (in mins): 35 Documented critical care: time excludes all time spent performing seperately billable procedures. Disposition - Disposition Disposition: HOSPITALIZED Disposition Time: 13:31 Condition: STABLE - Clinical Impression Clinical Impression: UTI (urinary tract infection), Syncope, near, Generalized weakness - Scribe Statement The provider has reviewed the documentation as recorded by the Scribe (Nahomy Parikh) Provider Attestation: All medical record entries made by the Scribe were at my direction and personally dictated by me. I have reviewed the chart and agree that the record accurately reflects my personal performance of the history, physical exam, medical decision making, and the department course for this patient. I have also personally directed, reviewed, and agree with the discharge instructions and d isposition. Decision To Admit - Pt Status Changed To: Hospital Disposition Of: Observation - InPatient: Physician Admission Certification: I certify that this patient requires 2 or more midnights of care for the following reason:: see notes - . Bed Request Type: Telemetry Admitting Physician: David Gallo Patient Diagnosis: COPD exacerbation, UTI (urinary tract infection), Generalized weakness, Syn cope, near
[2017-12-29] MEDS ORDERED: cefTRIAXone IV 1 gm in Dextros 50 ML IV STA (13:29)
[2017-12-29] MEDS ORDERED: Albuterol 0.083% Inhal Sol (2.5 mg/3 mL) UD IH PRN ×2 (13:32→14:30)
--- NOTE | 2017-12-29 13:47 | RAD ---
Date of service: 12/29/2017 PROCEDURE: CHEST RADIOGRAPH, 1 VIEW HISTORY: SOB COMPARISON: 08/18/2017. FINDINGS: LUNGS: The lungs are well inflated and clear. PLEURA: No pneumothorax or pleural effusion. CARDIOVASCULAR: The heart is normal in size. No aortic atherosclerotic calcifications present. OSSEOUS STRUCTURES: Within normal limits for the patient's age. VISUALIZED UPPER ABDOMEN: Normal. OTHER FINDINGS: There are multiple surgical clips in the right axilla. IMPRESSION: No active pulmonary disease.
[2017-12-29] MEDS ORDERED: Hydrocodone/Acetaminophen 5 mg /300 mg Tab PO STA (13:54)
[2017-12-29] MEDS ORDERED: Hydrocodone/Acetaminophen 5 mg /300 mg Tab PO ONE ×2 (14:08→14:19)
[2017-12-29] MEDS ORDERED: Albuterol HFA 90 mcg/actuation (8 g) IH PRN (14:30)
[2017-12-29] MEDS: Azithromycin 500 MG in Sodium Chloride 0.9% 250 ML IVPB SCH (16:30)
[2017-12-29] MEDS: (Novolin R) Insulin Human Regular 100 units/ml vial SC SCH ×2 (17:48→21:28)
--- NOTE | 2017-12-29 21:32 | CP.PCM.HP ---
Past Patient History - Infectious Disease Hx of Infectious Diseases: None - Tetanus Immunizations Tetanus Immunization: Unknown - Past Medical History & Family History Past Medical History?: Yes - Past Social History Smoking Status: Light Smoker < 10 Cigarettes Daily - CARDIAC Hx Hypertension: Yes - PULMONARY Hx Asthma: Yes Hx Bronchitis: Yes Hx Chronic Obstructive Pulmonary Disease (COPD): Yes Hx Pneumonia: Yes - NEUROLOGICAL Hx Seizures: Yes (about 20 yrs. ago) - HEENT Hx HEENT Problems: Yes Hx Cataracts: Yes Other/Comment: Use eyeglasses for reading - RENAL Hx Chronic Kidney Disease: No - ENDOCRINE/METABOLIC Hx Endocrine Disorders: Yes Hx Diabetes Mellitus Type 2: Yes - HEMATOLOGICAL/ONCOLOGICAL Hx Human Immunodeficiency Virus (HIV): No - INTEGUMENTARY Hx Dermatological Problems: No - MUSCULOSKELETAL/RHEUMATOLOGICAL Hx Arthritis: Yes - GASTROINTESTINAL Hx Gastrointestinal Disorders: No - GENITOURINARY/GYNECOLOGICAL Other/Comment: kidney stones - PSYCHIATRIC Hx Substance Use: No - SURGICAL HISTORY Hx Appendectomy: Yes Hx Cholecystectomy: Yes - ANESTHESIA Hx Anesthesia: Yes Hx Anesthesia Reactions: No Hx Malignant Hyperthermia: No Meds Allergies/Adverse Reactions: Allergies Allergy/AdvReac Type Severity Reaction Status Date / Time iron Allergy REDNESS Verified 12/29/17 11:37 Results - Vital Signs Recent Vital Signs: Last Vital Signs Temp 98.5 F 12/29/17 15:20 Pulse 122 H 12/29/17 20:00 Resp 20 12/29/17 15:20 BP 115/63 12/29/17 15:20 Pulse Ox 97 12/29/17 20:00 - Labs Result Diagrams: 12/29/17 12:40 12/29/17 12:40 Labs: Laboratory Results - last 24 hr 12/29/17 12/29/17 12/29/17 12:40 12:40 12:40 WBC 7.3 RBC 4.89 Hgb 11.1 Hct 34.9 MCV 71.4 L D MCH 22.7 L MCHC 31.8 L RDW 18.9 H Plt Count 255 MPV 7.9 Neut % (Auto) 69.0 Lymph % (Auto) 19.6 L Clarke % (Auto) 9.0 Eos % (Auto) 1.4 Baso % (Auto) 1.0 Neut # (Auto) 5.0 Lymph # (Auto) 1.4 Clarke # (Auto) 0.7 Eos # (Auto) 0.1 Baso # (Auto) 0.1 PT 12.3 H INR 1.1 APTT 34 Sodium 142 Potassium 4.1 Chloride 105 Carbon Dioxide 29 Anion Gap 13 BUN 14 Creatinine 0.7 Est GFR ( Amer) > 60 Est GFR (Non-Af Amer) > 60 POC Glucose (mg/dL) Random Glucose 124 H Calcium 9.1 Total Bilirubin 0.4 AST 36 ALT 20 Alkaline Phosphatase 131 H Total Creatine Kinase 113 CK-MB (Mass) 1.92 Troponin I < 0.0120 NT-Pro-B Natriuret Pep 36.7 Total Protein 7.8 Albumin 3.9 Globulin 3.9 Albumin/Globulin Ratio 1.0 Urine Color Urine Clarity Urine pH Ur Specific [place] Urine Protein Urine Glucose (UA) Urine Ketones Urine Blood Urine Nitrate Urine Bilirubin Urine Urobilinogen Ur Leukocyte Esterase Urine WBC (Auto) Urine RBC (Auto) Urine Bacteria 12/29/17 12/29/17 12/29/17 12:43 12:48 16:34 WBC RBC Hgb Hct MCV MCH MCHC RDW Plt Count MPV Neut % (Auto) Lymph % (Auto) Clarke % (Auto) Eos % (Auto) Baso % (Auto) Neut # (Auto) Lymph # (Auto) Clarke # (Auto) Eos # (Auto) Baso # (Auto) PT INR APTT Sodium Potassium Chloride Carbon Dioxide Anion Gap BUN Creatinine Est GFR ( Amer) Est GFR (Non-Af Amer) POC Glucose (mg/dL) 107 294 H Random Glucose Calcium Total Bilirubin AST ALT Alkaline Phosphatase Total Creatine Kinase CK-MB (Mass) Troponin I NT-Pro-B Natriuret Pep Total Protein Albumin Globulin Albumin/Globulin Ratio Urine Color Yellow Urine Clarity Clear Urine pH 8.0 Ur Specific [place] 1.010 Urine Protein Negative Urine Glucose (UA) Normal Urine Ketones Negative Urine Blood Negative Urine Nitrate Negative Urine Bilirubin Negative Urine Urobilinogen Normal Ur Leukocyte Esterase 1+ H Urine WBC (Auto) 9 H Urine RBC (Auto) 1 Urine Bacteria Rare 12/29/17 21:03 WBC RBC Hgb Hct MCV MCH MCHC RDW Plt Count MPV Neut % (Auto) Lymph % (Auto) Clarke % (Auto) Eos % (Auto) Baso % (Auto) Neut # (Auto) Lymph # (Auto) Clarke # (Auto) Eos # (Auto) Baso # (Auto) PT INR APTT Sodium Potassium Chloride Carbon Dioxide Anion Gap BUN Creatinine Est GFR ( Amer) Est GFR (Non-Af Amer) POC Glucose (mg/dL) 354 H Random Glucose Calcium Total Bilirubin AST ALT Alkaline Phosphatase Total Creatine Kinase CK-MB (Mass) Troponin I NT-Pro-B Natriuret Pep Total Protein Albumin Globulin Albumin/Globulin Ratio Urine Color Urine Clarity Urine pH Ur Specific [place] Urine Protein Urine Glucose (UA) Urine Ketones Urine Blood Urine Nitrate Urine Bilirubin Urine Urobilinogen Ur Leukocyte Esterase Urine WBC (Auto) Urine RBC (Auto) Urine Bacteria
--- NOTE | 2017-12-30 05:45 | HP ---
CHIEF COMPLAINT: Shortness of breath x3. HISTORY OF PRESENT ILLNESS: This is a 67-year-old female with history of COPD. She is chronic heavy smoker, prior hospitalization, allergic rhinitis who is compliant with diet, medication but she smokes. She came in because of last few days of cough, congestion, shortness of breath, wheezing, chest congestion, chest tightness upon cough, fever, chills, rigors, nausea. No vomiting. She has been getting prednisone on an outpatient basis with no response. She took last prednisone this morning at 6 a.m. She is also feeling weak, lightheaded, and she feels like passing out. She denies any abdominal pain, nausea, vomiting, or diarrhea. She denied any history of polyuria, polydipsia, polyphagia. She denied any history of hematuria or pyuria. She denied any sneezing, itchy eyes, itchy nose. There is no history of abdominal pain. There is no history of seizure, light sensitivity, trauma, fall, loss of consciousness. She denied any tingling, numbness, paraplegia. PAST MEDICAL HISTORY: COPD, diabetes, hypertension, and seizures. SOCIAL HISTORY: She is a smoker, non-ETOH user. CURRENT MEDICATIONS: At home, she is on albuterol sulfate, prednisone, Advair, aspirin, Norvasc, Marlen, and glimepiride. FAMILY HISTORY: Noncontributory. PHYSICAL EXAMINATION: GENERAL: An elderly female in [id number] respiratory distress. VITAL SIGNS: Blood pressure 115/63, pulse 118, respiratory rate 20, temperature 98.5. SKIN: No turgor. No bruises. No purpura. HEENT: Atraumatic and normocephalic. Negative pallor. Negative jaundice. CHEST WALL: Using accessory muscle. NECK: Supple. Negative JVD. Negative thyromegaly. LUNGS: Bilaterally decreased air entry. No rales. Positive rhonchi. CARDIOVASCULAR SYSTEM: S1 and S2, regular. Tachycardic. ABDOMEN: Soft and nontender. Bowel sounds are positive. EXTREMITIES: No clubbing, cyanosis, or edema. CENTRAL NERVOUS SYSTEM: Awake, alert, and oriented x3. ASSESSMENT: 1. Acute tracheobronchitis. 2. Exacerbation of chronic obstructive pulmonary disease, acute, failed outpatient treatment. PLAN: Start antibiotics, and monitor the patient. David Gallo MD [facility] # [id number]
[2017-12-30] MEDS ORDERED: Hydrocodone/Acetaminophen 5 mg /300 mg Tab PO STA (06:34)
[2017-12-30] MEDS ORDERED: Fluticasone-Vilanterol 200/25mcg Diskus INH SCH (08:00)
[2017-12-30] MEDS: (Novolin R) Insulin Human Regular 100 units/ml vial SC SCH ×4 (08:16→22:00)
--- NOTE | 2017-12-30 09:35 | CP.PCM.CON ---
History of Present Illness - History of Present Illness History of Present Illness: reason for consultation: shortness of breath 67-year-old female with history of COPD, diabetes, hypertension, seizure disorderwho presented to the emergency room with a complaint of SOB for the past 2 wks. Patient is also complaining of her chronic neck pain. . Review of Systems - Review of Systems All systems: reviewed and no additional remarkable complaints except (Shortness of breath) Past Patient History - Infectious Disease Hx of Infectious Diseases: None - Tetanus Immunizations Tetanus Immunization: Unknown - Past Medical History & Family History Past Medical History?: Yes - Past Social History Smoking Status: Light Smoker < 10 Cigarettes Daily - CARDIAC Hx Hypertension: Yes - PULMONARY Hx Asthma: Yes Hx Bronchitis: Yes Hx Chronic Obstructive Pulmonary Disease (COPD): Yes Hx Pneumonia: Yes - NEUROLOGICAL Hx Seizures: Yes (about 20 yrs. ago) - HEENT Hx HEENT Problems: Yes Hx Cataracts: Yes Other/Comment: Use eyeglasses for reading - RENAL Hx Chronic Kidney Disease: No - ENDOCRINE/METABOLIC Hx Endocrine Disorders: Yes Hx Diabetes Mellitus Type 2: Yes - HEMATOLOGICAL/ONCOLOGICAL Hx Human Immunodeficiency Virus (HIV): No - INTEGUMENTARY Hx Dermatological Problems: No - MUSCULOSKELETAL/RHEUMATOLOGICAL Hx Arthritis: Yes - GASTROINTESTINAL Hx Gastrointestinal Disorders: No - GENITOURINARY/GYNECOLOGICAL Other/Comment: kidney stones - PSYCHIATRIC Hx Substance Use: No - SURGICAL HISTORY Hx Appendectomy: Yes Hx Cholecystectomy: Yes - ANESTHESIA Hx Anesthesia: Yes Hx Anesthesia Reactions: No Hx Malignant Hyperthermia: No Meds Allergies/Adverse Reactions: Allergies Allergy/AdvReac Type Severity Reaction Status Date / Time iron Allergy REDNESS Verified 12/29/17 11:37 - Medications Medications: Current Medications Albuterol (Ventolin Hfa 90 Mcg/Actuation (8 G)) 2 puff IH RQ6 PRN PRN Reason: Wheezing Albuterol Sulfate (Albuterol 0.083% Inhal Kaylynn (2.5 Mg/3 Ml) Ud) 2.5 mg IH Q2 PRN PRN Reason: Wheezing Last Admin: 12/30/17 08:04 Dose: 2.5 mg Albuterol Sulfate (Albuterol 0.083% Inhal Kaylynn (2.5 Mg/3 Ml) Ud) 2.5 mg IH Q6 PRN PRN Reason: sob Amlodipine Besylate (Norvasc) 5 mg PO DAILY [facility] Aspirin (Ecotrin) 81 mg PO DAILY [facility] Enoxaparin Sodium (Lovenox) 40 mg SC DAILY [facility] Fluticasone/Vilanterol (Breo Ellipta 200-25 Mcg Inh) 1 puff INH RQ24 [facility] Glimepiride (Amaryl) 2 mg PO DAILY [facility] Azithromycin 500 mg/ Sodium (Chloride) 250 mls @ 167 mls/hr IVPB Q24H [facility]; Protocol Last Admin: 12/29/17 16:30 Dose: 167 mls/hr Insulin Human Regular (Novolin R) 0 unit SC ACHS [facility]; Protocol Last Admin: 12/30/17 08:16 Dose: 2 unit Methylprednisolone (Solu-Medrol) 60 mg IV Q12 [facility] Last Admin: 12/29/17 21:29 Dose: 60 mg Physical Exam - Head Exam Head Exam: ATRAUMATIC, NORMOCEPHALIC - ENT Exam ENT Exam: Mucous Membranes Moist - Neck Exam Neck exam: Positive for: Normal Inspection - Respiratory Exam Respiratory Exam: Rhonchi, Wheezes - Cardiovascular Exam Cardiovascular Exam: REGULAR RHYTHM - GI/Abdominal Exam GI & Abdominal Exam: Normal Bowel Sounds Results - Vital Signs Recent Vital Signs: Last Vital Signs Temp 97.8 F 12/30/17 07:30 Pulse 104 H 12/30/17 07:30 Resp 20 12/30/17 07:30 BP 108/73 12/30/17 07:30 Pulse Ox 100 12/30/17 07:30 - Labs Result Diagrams: 12/29/17 12:40 12/29/17 12:40 Labs: Laboratory Results - last 24 hr 12/29/17 12/29/17 12/29/17 12:40 12:40 12:40 WBC 7.3 RBC 4.89 Hgb 11.1 Hct 34.9 MCV 71.4 L D MCH 22.7 L MCHC 31.8 L RDW 18.9 H Plt Count 255 MPV 7.9 Neut % (Auto) 69.0 Lymph % (Auto) 19.6 L [place] % (Auto) 9.0 Eos % (Auto) 1.4 Baso % (Auto) 1.0 Neut # (Auto) 5.0 Lymph # (Auto) 1.4 [place] # (Auto) 0.7 Eos # (Auto) 0.1 Baso # (Auto) 0.1 PT 12.3 H INR 1.1 APTT 34 Sodium 142 Potassium 4.1 Chloride 105 Carbon Dioxide 29 Anion Gap 13 BUN 14 Creatinine 0.7 Est GFR ( Amer) > 60 Est GFR (Non-Af Amer) > 60 POC Glucose (mg/dL) Random Glucose 124 H Calcium 9.1 Total Bilirubin 0.4 AST 36 ALT 20 Alkaline Phosphatase 131 H Total Creatine Kinase 113 CK-MB (Mass) 1.92 Troponin I < 0.0120 NT-Pro-B Natriuret Pep 36.7 Total Protein 7.8 Albumin 3.9 Globulin 3.9 Albumin/Globulin Ratio 1.0 Urine Color Urine Clarity Urine pH Ur Specific [place] Urine Protein Urine Glucose (UA) Urine Ketones Urine Blood Urine Nitrate Urine Bilirubin Urine Urobilinogen Ur Leukocyte Esterase Urine WBC (Auto) Urine RBC (Auto) Urine Bacteria 12/29/17 12/29/17 12/29/17 12:43 12:48 16:34 WBC RBC Hgb Hct MCV MCH MCHC RDW Plt Count MPV Neut % (Auto) Lymph % (Auto) [place] % (Auto) Eos % (Auto) Baso % (Auto) Neut # (Auto) Lymph # (Auto) [place] # (Auto) Eos # (Auto) Baso # (Auto) PT INR APTT Sodium Potassium Chloride Carbon Dioxide Anion Gap BUN Creatinine Est GFR ( Amer) Est GFR (Non-Af Amer) POC Glucose (mg/dL) 107 294 H Random Glucose Calcium Total Bilirubin AST ALT Alkaline Phosphatase Total Creatine Kinase CK-MB (Mass) Troponin I NT-Pro-B Natriuret Pep Total Protein Albumin Globulin Albumin/Globulin Ratio Urine Color Yellow Urine Clarity Clear Urine pH 8.0 Ur Specific [place] 1.010 Urine Protein Negative Urine Glucose (UA) Normal Urine Ketones Negative Urine Blood Negative Urine Nitrate Negative Urine Bilirubin Negative Urine Urobilinogen Normal Ur Leukocyte Esterase 1+ H Urine WBC (Auto) 9 H Urine RBC (Auto) 1 Urine Bacteria Rare 12/29/17 12/30/17 12/30/17 21:03 02:35 06:22 WBC RBC Hgb Hct MCV MCH MCHC RDW Plt Count MPV Neut % (Auto) Lymph % (Auto) [place] % (Auto) Eos % (Auto) Baso % (Auto) Neut # (Auto) Lymph # (Auto) [place] # (Auto) Eos # (Auto) Baso # (Auto) PT INR APTT Sodium Potassium Chloride Carbon Dioxide Anion Gap BUN Creatinine Est GFR ( Amer) Est GFR (Non-Af Amer) POC Glucose (mg/dL) 354 H 224 H 172 H Random Glucose Calcium Total Bilirubin AST ALT Alkaline Phosphatase Total Creatine Kinase CK-MB (Mass) Troponin I NT-Pro-B Natriuret Pep Total Protein Albumin Globulin Albumin/Globulin Ratio Urine Color Urine Clarity Urine pH Ur Specific [place] Urine Protein Urine Glucose (UA) Urine Ketones Urine Blood Urine Nitrate Urine Bilirubin Urine Urobilinogen Ur Leukocyte Esterase Urine WBC (Auto) Urine RBC (Auto) Urine Bacteria Assessment & Plan (1) COPD exacerbation Status: Acute Comment: bronchodilators. Steroids. CAT scan of the chest( lungs screening for nodule because of long history of smoking)
[2017-12-30] MEDS: Enoxaparin 40 mg Syringe SC SCH (09:59)
[2017-12-30] MEDS: Fluticasone-Vilanterol 200/25mcg Diskus INH SCH (10:41)
[2017-12-30] MEDS: Albuterol 0.083% Inhal Sol (2.5 mg/3 mL) UD IH SCH ×3 (12:05→19:36)
--- NOTE | 2017-12-30 16:29 | CT ---
Date of service: 12/30/2017 PROCEDURE: CT Chest without contrast HISTORY: lung screening COMPARISON: None available. TECHNIQUE: Contiguous axial images were obtained through the chest without intravenous contrast enhancement. Sagittal and coronal reconstructions were performed. Radiation dose: Total exam DLP = 184.67 mGy-cm. This CT exam was performed using one or more of the following dose reduction techniques: Automated exposure control, adjustment of the mA and/or kV according to patient size, and/or use of iterative reconstruction technique. FINDINGS: LUNGS: Significant centrilobular and panlobular emphysematous changes upper lobe predominance. There is a nodular spiculated appearing density left anterior upper lobe/lung apex junction that measures approximately 12.8 x 6.8 mm which could represent postinflammatory scarring however the possibility of underlying scar carcinoma not excluded. Clinical correlation recommended.. 4.7 mm nodular density right medial upper lung field the may be postinflammatory as well..... An additional tiny nodule right lower lobe.. Numerous tiny granulomata seen in the upper and lower lobes bilaterally. Clinical correlation recommended. No acute infiltrates . MEDIASTINUM: Heart size is within range of normal. No significant pericardial effusion. Ascending thoracic aorta measures approximately 2.8 cm and descending thoracic aorta measures approximately 2.3 cm. Mild aortic atherosclerotic calcification. The pulmonary trunk measures approximately 2.1 cm. Trachea is midline with no large central endoluminal lesions. There is a small hiatal hernia. PLEURA: No pleural fluid. No pneumothorax. BONES: Minor multilevel degenerative spondylosis of the thoracic spine UPPER ABDOMEN: The liver exhibits nodular surface contour suggesting underlying cirrhosis. Clinical correlation recommended. Cholecystectomy. OTHER FINDINGS: Note made of an in situ right breast prosthesis. IMPRESSION: Significant centrilobular and panlobular with upper lobe predominance. There is an elliptical shaped nodule left apex/upper lobe that exhibit spiculated borders the. This likely represents postinflammatory scarring however the possibility of underlying scar carcinoma not excluded. Clinical correlation recommended small nodule right upper lobe. An additional tiny nodule seen in the right lower lobe of bordering the fissure. Numerous tiny bilateral granulomata in the upper and lower lobes. In situ breast implant. Findings suggest underlying hepatic cirrhosis. Cholecystectomy.
[2017-12-30] MEDS: Azithromycin 500 MG in Sodium Chloride 0.9% 250 ML IVPB SCH (17:26)
--- NOTE | 2017-12-30 19:24 | CP.PCM.PN ---
Subjective - Subjective Subjective: dictated Objective - Vital Signs/Intake and Output Vital Signs (last 24 hours): Temp Pulse Resp BP Pulse Ox 97.7 F 111 H 20 125/70 94 L 12/30/17 15:15 12/30/17 15:15 12/30/17 15:15 12/30/17 15:15 12/30/17 15:15 - Medications Medications: Current Medications Acetaminophen (Tylenol 325mg Tab) 650 mg PO Q6 PRN PRN Reason: Pain, moderate (4-7) Albuterol (Ventolin Hfa 90 Mcg/Actuation (8 G)) 2 puff IH RQ6 PRN PRN Reason: Wheezing Albuterol Sulfate (Albuterol 0.083% Inhal Kaylynn (2.5 Mg/3 Ml) Ud) 2.5 mg IH RQ6 [facility] Last Admin: 12/30/17 13:53 Dose: 2.5 mg Amlodipine Besylate (Norvasc) 5 mg PO DAILY [facility] Last Admin: 12/30/17 09:58 Dose: 5 mg Aspirin (Ecotrin) 81 mg PO DAILY [facility] Last Admin: 12/30/17 09:58 Dose: 81 mg Enoxaparin Sodium (Lovenox) 40 mg SC DAILY [facility] Last Admin: 12/30/17 09:59 Dose: 40 mg Fluticasone/Vilanterol (Breo Ellipta 200-25 Mcg Inh) 1 puff INH RQ24 [facility] Last Admin: 12/30/17 10:41 Dose: 1 puff Glimepiride (Amaryl) 2 mg PO DAILY [facility] Last Admin: 12/30/17 09:58 Dose: 2 mg Azithromycin 500 mg/ Sodium (Chloride) 250 mls @ 167 mls/hr IVPB Q24H [facility]; Protocol Last Admin: 12/30/17 17:26 Dose: 167 mls/hr Insulin Human Regular (Novolin R) 0 unit SC ACHS [facility]; Protocol Last Admin: 12/30/17 17:26 Dose: 4 unit Methylprednisolone (Solu-Medrol) 60 mg IV Q12 [facility] Last Admin: 12/30/17 09:58 Dose: 60 mg Nicotine (Nicoderm Cq) 1 patch TD DAILY [facility] Tiotropium [place] (Spiriva) 18 mcg INH RQ24 [facility] - Labs Labs: 12/29/17 12:40 12/29/17 12:40 PT 12.3 SECONDS (9.7-12.2) H 12/29/17 12:40 INR 1.1 12/29/17 12:40 APTT 34 SECONDS (21-34) 12/29/17 12:40
[2017-12-30] MEDS: Oxycodone/Acetaminophen 5/325 mg Tab PO PRN (20:28)
[2017-12-31] MEDS: Albuterol 0.083% Inhal Sol (2.5 mg/3 mL) UD IH SCH ×4 (01:15→19:36)
[2017-12-31] MEDS: Tiotropium 18 mcg Cap For Inhalation INH SCH (08:00)
[2017-12-31] MEDS: Fluticasone-Vilanterol 200/25mcg Diskus INH SCH (08:00)
[2017-12-31] MEDS: Oxycodone/Acetaminophen 5/325 mg Tab PO PRN ×2 (08:27→15:42)
[2017-12-31] MEDS: (Novolin R) Insulin Human Regular 100 units/ml vial SC SCH ×4 (08:28→23:00)
[2017-12-31] MEDS: Enoxaparin 40 mg Syringe SC SCH (10:15)
[2017-12-31] MEDS: Azithromycin 500 MG in Sodium Chloride 0.9% 250 ML IVPB SCH (17:00)
[2017-12-31] MEDS ORDERED: Bisacodyl 5mg EC Tab PO ONE (20:24)
--- NOTE | 2017-12-31 21:23 | CP.PCM.CON ---
History of Present Illness - History of Present Illness History of Present Illness: Reason for consultation: shortness of breath. R/O Cardiac etiology 67-year-old female with history of COPD, diabetes, hypertension, seizure disorderwho presented to the emergency room with a complaint of SOB for the past 2 wks. Patient is also complaining of her chronic neck pain. . Review of Systems - Review of Systems All systems: reviewed and no additional remarkable complaints except (Shortness of breath) Meds Allergies/Adverse Reactions: Allergies Allergy/AdvReac Type Severity Reaction Status Date / Time iron Allergy REDNESS Verified 12/29/17 11:37 - Medications Medications: Current Medications Albuterol (Ventolin Hfa 90 Mcg/Actuation (8 G)) 2 puff IH RQ6 PRN PRN Reason: Wheezing Albuterol Sulfate (Albuterol 0.083% Inhal Kaylynn (2.5 Mg/3 Ml) Ud) 2.5 mg IH Q2 PRN PRN Reason: Wheezing Last Admin: 12/30/17 08:04 Dose: 2.5 mg Albuterol Sulfate (Albuterol 0.083% Inhal Kaylynn (2.5 Mg/3 Ml) Ud) 2.5 mg IH Q6 PRN PRN Reason: sob Amlodipine Besylate (Norvasc) 5 mg PO DAILY [facility] Aspirin (Ecotrin) 81 mg PO DAILY [facility] Enoxaparin Sodium (Lovenox) 40 mg SC DAILY [facility] Fluticasone/Vilanterol (Breo Ellipta 200-25 Mcg Inh) 1 puff INH RQ24 [facility] Glimepiride (Amaryl) 2 mg PO DAILY [facility] Azithromycin 500 mg/ Sodium (Chloride) 250 mls @ 167 mls/hr IVPB Q24H [facility]; Prot ocol Last Admin: 12/29/17 16:30 Dose: 167 mls/hr Insulin Human Regular (Novolin R) 0 unit SC ACHS [facility]; Protocol Last Admin: 12/30/17 08:16 Dose: 2 unit Methylprednisolone (Solu-Medrol) 60 mg IV Q12 [facility] Last Admin: 12/29/17 21:29 Dose: 60 mg Physical Exam - Head Exam Head Exam: ATRAUMATIC, NORMOCEPHALIC - ENT Exam ENT Exam: Mucous Membranes Moist - Neck Exam Neck exam: Positive for: Normal Inspection - Respiratory Exam Respiratory Exam: Rhonchi, Wheezes - Cardiovascular Exam Cardiovascular Exam: REGULAR RHYTHM - GI/Abdominal Exam GI & Abdominal Exam: Normal Bowel Sounds Results - Vital Signs Recent Vital Signs: Last Vital Signs Temp 97.8 F 12/30/17 07:30 Pulse 104 H 12/30/17 07:30 Resp 20 12/30/17 07:30 BP 108/73 12/30/17 07:30 Pulse Ox 100 12/30/17 07:30 - Labs Result Diagrams: 12/29/17 12:40 12/29/17 12:40 Labs: Laboratory Results - last 24 hr 12/29/17 12/29/17 12/29/17 12:40 12:40 12:40 WBC 7.3 RBC 4.89 Hgb 11.1 Hct 34.9 MCV 71.4 L D MCH 22.7 L MCHC 31.8 L RDW 18.9 H Plt Count 255 MPV 7.9 Neut % (Auto) 69.0 Lymph % (Auto) 19.6 L [place] % (Auto) 9.0 Eos % (Auto) 1.4 Baso % (Auto) 1.0 Neut # (Auto) 5.0 Lymph # (Auto) 1.4 [place] # (Auto) 0.7 Eos # (Auto) 0.1 Baso # (Auto) 0.1 PT 12.3 H INR 1.1 APTT 34 Sodium 142 Potassium 4.1 Chloride 105 Carbon Dioxide 29 Anion Gap 13 BUN 14 Creatinine 0.7 Est GFR ( Amer) > 60 Est GFR (Non-Af Amer) > 60 POC Glucose (mg/dL) Random Glucose 124 H Calcium 9.1 Total Bilirubin 0.4 AST 36 ALT 20 Alkaline Phosphatase 131 H Total Creatine Kinase 113 CK-MB (Mass) 1.92 Troponin I < 0.0120 NT-Pro-B Natriuret Pep 36.7 Total Protein 7.8 Albumin 3.9 Globulin 3.9 Albumin/Globulin Ratio 1.0 Urine Color Urine Clarity Urine pH Ur Specific [place] Urine Protein Urine Glucose (UA) Urine Ketones Urine Blood Urine Nitrate Urine Bilirubin Urine Urobilinogen Ur Leukocyte Esterase Urine WBC (Auto) Urine RBC (Auto) Urine Bacteria 12/29/17 12/29/17 12/29/17 12:43 12:48 16:34 WBC RBC Hgb Hct MCV MCH MCHC RDW Plt Count MPV Neut % (Auto) Lymph % (Auto) [place] % (Auto) Eos % (Auto) Baso % (Auto) Neut # (Auto) Lymph # (Auto) [place] # (Auto) Eos # (Auto) Baso # (Auto) PT INR APTT Sodium Potassium Chloride Carbon Dioxide Anion Gap BUN Creatinine Est GFR ( Amer) Est GFR (Non-Af Amer) POC Glucose (mg/dL) 107 294 H Random Glucose Calcium Total Bilirubin AST ALT Alkaline Phosphatase Total Creatine Kinase CK-MB (Mass) Troponin I NT-Pro-B Natriuret Pep Total Protein Albumin Globulin Albumin/Globulin Ratio Urine Color Yellow Urine Clarity Clear Urine pH 8.0 Ur Specific [place] 1.010 Urine Protein Negative Urine Glucose (UA) Normal Urine Ketones Negative Urine Blood Negative Urine Nitrate Negative Urine Bilirubin Negative Urine Urobilinogen Normal Ur Leukocyte Esterase 1+ H Urine WBC (Auto) 9 H Urine RBC (Auto) 1 Urine Bacteria Rare 12/29/17 12/30/17 12/30/17 21:03 02:35 06:22 WBC RBC Hgb Hct MCV MCH MCHC RDW Plt Count MPV Neut % (Auto) Lymph % (Auto) [place] % (Auto) Eos % (Auto) Baso % (Auto) Neut # (Auto) Lymph # (Auto) [place] # (Auto) Eos # (Auto) Baso # (Auto) PT INR APTT Sodium Potassium Chloride Carbon Dioxide Anion Gap BUN Creatinine Est GFR ( Amer) Est GFR (Non-Af Amer) POC Glucose (mg/dL) 354 H 224 H 172 H Random Glucose Calcium Total Bilirubin AST ALT Alkaline Phosphatase Total Creatine Kinase CK-MB (Mass) Troponin I NT-Pro-B Natriuret Pep Total Protein Albumin Globulin Albumin/Globulin Ratio Urine Color Urine Clarity Urine pH Ur Specific [place] Urine Protein Urine Glucose (UA) Urine Ketones Urine Blood Urine Nitrate Urine Bilirubin Urine Urobilinogen Ur Leukocyte Esterase Urine WBC (Auto) Urine RBC (Auto) Urine Bacteria Assessment & Plan (1) COPD exacerbation Status: Acute Comment: bronchodilators. Steroids. CAT scan of the chest( lungs screening for nodule because of long history of smoking) ProBNP gisella; Check ECHO Past Patient History - Infectious Disease Hx of Infectious Diseases: None - Tetanus Immunizations Tetanus Immunization: Unknown - Past Medical History & Family History Past Medical History?: Yes - Past Social History Smoking Status: Light Smoker < 10 Cigarettes Daily - CARDIAC Hx Hypertension: Yes - PULMONARY Hx Chronic Obstructive Pulmonary Disease (COPD): Yes - NEUROLOGICAL Hx Seizures: Yes (about 20 yrs. ago) - HEENT Hx HEENT Problems: Yes Hx Cataracts: Yes Other/Comment: Use eyeglasses for reading - RENAL Hx Chronic Kidney Disease: No - ENDOCRINE/METABOLIC Hx Endocrine Disorders: Yes Hx Diabetes Mellitus Type 2: Yes - HEMATOLOGICAL/ONCOLOGICAL Hx Human Immunodeficiency Virus (HIV): No - INTEGUMENTARY Hx Dermatological Problems: No - MUSCULOSKELETAL/RHEUMATOLOGICAL Hx Arthritis: Yes - GASTROINTESTINAL Hx Gastrointestinal Disorders: No - GENITOURINARY/GYNECOLOGICAL Other/Comment: kidney stones - PSYCHIATRIC Hx Substance Use: No - SURGICAL HISTORY Hx Appendectomy: Yes Hx Cholecystectomy: Yes - ANESTHESIA Hx Anesthesia: Yes Hx Anesthesia Reactions: No Hx Malignant Hyperthermia: No Meds Allergies/Adverse Reactions: Allergies Allergy/AdvReac Type Severity Reaction Status Date / Time iron Allergy REDNESS Verified 12/29/17 11:37 - Medications Medications: Current Medications Acetaminophen (Tylenol 325mg Tab) 650 mg PO Q6 PRN PRN Reason: Pain, moderate (4-7) Last Admin: 12/30/17 19:34 Dose: 650 mg Albuterol (Ventolin Hfa 90 Mcg/Actuation (8 G)) 2 puff IH RQ6 PRN PRN Reason: Wheezing Last Admin: 12/31/17 08:00 Dose: 2 inhaler Albuterol Sulfate (Albuterol 0.083% Inhal Kaylynn (2.5 Mg/3 Ml) Ud) 2.5 mg IH RQ6 [facility] Last Admin: 12/31/17 19:36 Dose: 2.5 mg Amlodipine Besylate (Norvasc) 5 mg PO DAILY [facility] Last Admin: 12/31/17 10:14 Dose: 5 mg Aspirin (Ecotrin) 81 mg PO DAILY [facility] Last Admin: 12/31/17 10:13 Dose: 81 mg Enoxaparin Sodium (Lovenox) 40 mg SC DAILY [facility] Last Admin: 12/31/17 10:15 Dose: 40 mg Fluticasone/Vilanterol (Breo Ellipta 200-25 Mcg Inh) 1 puff INH RQ24 [facility] Last Admin: 12/31/17 08:00 Dose: 1 puff Glimepiride (Amaryl) 2 mg PO DAILY [facility] Last Admin: 12/31/17 10:13 Dose: 2 mg Azithromycin 500 mg/ Sodium (Chloride) 250 mls @ 167 mls/hr IVPB Q24H [facility]; Protocol Last Admin: 12/31/17 17:00 Dose: 167 mls/hr Insulin Human Regular (Novolin R) 0 unit SC ACHS [facility]; Protocol Last Admin: 12/31/17 17:47 Dose: 3 unit Methylprednisolone (Solu-Medrol) 60 mg IV Q12 [facility] Last Admin: 12/31/17 10:14 Dose: 60 mg Nicotine (Nicoderm Cq) 1 patch TD DAILY [facility] Last Admin: 12/31/17 10:14 Dose: 1 patch Oxycodone/Acetaminophen (Percocet 5/325 Mg Tab) 1 tab PO Q4H PRN PRN Reason: Pain, moderate (4-7) Stop: 01/02/18 19:44 Last Admin: 12/31/17 15:42 Dose: 1 tab Tiotropium [place] (Spiriva) 18 mcg INH RQ24 [facility] Last Admin: 12/31/17 08:00 Dose: 18 mcg Results - Vital Signs Recent Vital Signs: Last Vital Signs Temp 97.3 F L 12/31/17 15:51 Pulse 100 H 12/31/17 15:51 Resp 20 12/31/17 15:51 BP 132/66 12/31/17 15:51 Pulse Ox 96 12/31/17 15:51 - Labs Result Diagrams: 12/29/17 12:40 12/29/17 12:40
--- NOTE | 2017-12-31 22:43 | CP.PCM.PN ---
Subjective - Subjective Subjective: dicttaed Objective - Vital Signs/Intake and Output Vital Signs (last 24 hours): Temp Pulse Resp BP Pulse Ox 97.3 F L 100 H 20 132/66 96 12/31/17 15:51 12/31/17 15:51 12/31/17 15:51 12/31/17 15:51 12/31/17 15:51 Intake and Output: 12/31/17 01/01/18 18:59 06:59 Intake Total 640 Balance 640 - Medications Medications: Current Medications Acetaminophen (Tylenol 325mg Tab) 650 mg PO Q6 PRN PRN Reason: Pain, moderate (4-7) Last Admin: 12/30/17 19:34 Dose: 650 mg Albuterol (Ventolin Hfa 90 Mcg/Actuation (8 G)) 2 puff IH RQ6 PRN PRN Reason: Wheezing Last Admin: 12/31/17 08:00 Dose: 2 inhaler Albuterol Sulfate (Albuterol 0.083% Inhal [place]lynn (2.5 Mg/3 Ml) Ud) 2.5 mg IH RQ6 [facility] Last Admin: 12/31/17 19:36 Dose: 2.5 mg Amlodipine Besylate (Norvasc) 5 mg PO DAILY [facility] Last Admin: 12/31/17 10:14 Dose: 5 mg Aspirin (Ecotrin) 81 mg PO DAILY [facility] Last Admin: 12/31/17 10:13 Dose: 81 mg Enoxaparin Sodium (Lovenox) 40 mg SC DAILY [facility] Last Admin: 12/31/17 10:15 Dose: 40 mg Fluticasone/Vilanterol (Breo Ellipta 200-25 Mcg Inh) 1 puff INH RQ24 [facility] Last Admin: 12/31/17 08:00 Dose: 1 puff Glimepiride (Amaryl) 2 mg PO DAILY [facility] Last Admin: 12/31/17 10:13 Dose: 2 mg Azithromycin 500 mg/ Sodium (Chloride) 250 mls @ 167 mls/hr IVPB Q24H [facility]; Protocol Last Admin: 12/31/17 17:00 Dose: 167 mls/hr Insulin Human Regular (Novolin R) 0 unit SC ACHS [facility]; Protocol Last Admin: 12/31/17 17:47 Dose: 3 unit Methylprednisolone (Solu-Medrol) 60 mg IV Q12 [facility] Last Admin: 12/31/17 21:25 Dose: 60 mg Nicotine (Nicoderm Cq) 1 patch TD DAILY [facility] Last Admin: 12/31/17 10:14 Dose: 1 patch Oxycodone/Acetaminophen (Percocet 5/325 Mg Tab) 1 tab PO Q4H PRN PRN Reason: Pain, moderate (4-7) Stop: 01/02/18 19:44 Last Admin: 12/31/17 15:42 Dose: 1 tab Tiotropium [place] (Spiriva) 18 mcg INH RQ24 [facility] Last Admin: 12/31/17 08:00 Dose: 18 mcg - Labs Labs: 12/29/17 12:40 12/29/17 12:40 PT 12.3 SECONDS (9.7-12.2) H 12/29/17 12:40 INR 1.1 12/29/17 12:40 APTT 34 SECONDS (21-34) 12/29/17 12:40
[2018-01-01] MEDS: Albuterol 0.083% Inhal Sol (2.5 mg/3 mL) UD IH SCH ×4 (01:18→19:31)
--- NOTE | 2018-01-01 03:22 | PN ---
DATE: 12/31/2017 SUBJECTIVE: The patient is feeling better. She has less cough, less shortness of breath, less wheezing. PHYSICAL EXAMINATION: VITAL SIGNS: BP 132/66, pulse 100, respiratory rate 20, and temperature 97.3. LUNGS: Decreased air entry. Positive rhonchi. CARDIOVASCULAR SYSTEM: S1 and S2 are regular. ABDOMEN: Soft. ASSESSMENT: 1. Acute exacerbation of chronic obstructive pulmonary disease. 2. Diabetes. 3. Hypertension. PLAN: Continue current medications. Monitor the patient. David Gallo MD
[2018-01-01] MEDS: Tiotropium 18 mcg Cap For Inhalation INH SCH (08:00)
[2018-01-01] MEDS: Fluticasone-Vilanterol 200/25mcg Diskus INH SCH (08:01)
[2018-01-01] MEDS: (Novolin R) Insulin Human Regular 100 units/ml vial SC SCH ×4 (08:22→21:38)
[2018-01-01] MEDS: Oxycodone/Acetaminophen 5/325 mg Tab PO PRN (08:24)
--- NOTE | 2018-01-01 08:34 | CP.PCM.PN ---
Subjective - Date & Time of Evaluation Date of Evaluation: 01/01/18 Time of Evaluation: 08:30 - Subjective Subjective: the patient seen and examined Less shortness of breath Denies cough Afebrile CAT scan of the chest noted Objective - Vital Signs/Intake and Output Vital Signs (last 24 hours): Temp Pulse Resp BP Pulse Ox 98.1 F 105 H 20 114/62 94 L 12/31/17 23:25 12/31/17 23:25 12/31/17 23:25 12/31/17 23:25 01/01/18 03:49 Intake and Output: 01/01/18 01/01/18 06:59 18:59 Intake Total 20 Balance 20 - Medications Medications: Current Medications Acetaminophen (Tylenol 325mg Tab) 650 mg PO Q6 PRN PRN Reason: Pain, moderate (4-7) Last Admin: 12/30/17 19:34 Dose: 650 mg Albuterol (Ventolin Hfa 90 Mcg/Actuation (8 G)) 2 puff IH RQ6 PRN PRN Reason: Wheezing Last Admin: 12/31/17 08:00 Dose: 2 inhaler Albuterol Sulfate (Albuterol 0.083% Inhal Kaylynn (2.5 Mg/3 Ml) Ud) 2.5 mg IH RQ6 [facility] Last Admin: 01/01/18 08:00 Dose: 2.5 mg Amlodipine Besylate (Norvasc) 5 mg PO DAILY [facility] Last Admin: 12/31/17 10:14 Dose: 5 mg Aspirin (Ecotrin) 81 mg PO DAILY [facility] Last Admin: 12/31/17 10:13 Dose: 81 mg Enoxaparin Sodium (Lovenox) 40 mg SC DAILY [facility] Last Admin: 12/31/17 10:15 Dose: 40 mg Fluticasone/Vilanterol (Breo Ellipta 200-25 Mcg Inh) 1 puff INH RQ24 [facility] Last Admin: 01/01/18 08:01 Dose: 1 puff Glimepiride (Amaryl) 2 mg PO DAILY [facility] Last Admin: 12/31/17 10:13 Dose: 2 mg Azithromycin 500 mg/ Sodium (Chloride) 250 mls @ 167 mls/hr IVPB Q24H [facility]; Protocol Last Admin: 12/31/17 17:00 Dose: 167 mls/hr Insulin Human Regular (Novolin R) 0 unit SC ACHS [facility]; Protocol Last Admin: 01/01/18 08:22 Dose: 4 unit Methylprednisolone (Solu-Medrol) 60 mg IV Q12 [facility] Last Admin: 12/31/17 21:25 Dose: 60 mg Nicotine (Nicoderm Cq) 1 patch TD DAILY [facility] Last Admin: 12/31/17 10:14 Dose: 1 patch Oxycodone/Acetaminophen (Percocet 5/325 Mg Tab) 1 tab PO Q4H PRN PRN Reason: Pain, moderate (4-7) Stop: 01/02/18 19:44 Last Admin: 01/01/18 08:24 Dose: 1 tab Tiotropium [place] (Spiriva) 18 mcg INH RQ24 [facility] Last Admin: 01/01/18 08:00 Dose: 18 mcg - Labs Labs: 12/29/17 12:40 12/29/17 12:40 PT 12.3 SECONDS (9.7-12.2) H 12/29/17 12:40 INR 1.1 12/29/17 12:40 APTT 34 SECONDS (21-34) 12/29/17 12:40 - Head Exam Head Exam: ATRAUMATIC, NORMOCEPHALIC - ENT Exam ENT Exam: Mucous Membranes Moist - Neck Exam Neck Exam: Normal Inspection - Respiratory Exam Respiratory Exam: Decreased Breath Sounds - Cardiovascular Exam Cardiovascular Exam: REGULAR RHYTHM - GI/Abdominal Exam GI & Abdominal Exam: Soft, Normal Bowel Sounds - Extremities Exam Extremities Exam: Normal Inspection - Neurological Exam Neurological Exam: Alert Assessment and Plan (1) COPD exacerbation Assessment & Plan: taper steroids Nebulizer treatment LAMA/LABA Status: Acute (2) Lung nodule Assessment & Plan: Spiculated nodule left upper lobe with long history of smoking IR for biopsy Thoracic consult Pulmonary function test Status: Acute
--- NOTE | 2018-01-01 10:28 | PN ---
DATE: 12/30/2017 SUBJECTIVE: The patient has less cough, less shortness of breath. afebrile. No nausea or vomiting. She was seen by Pulmonary. The patient has pulmonary service. The patient has some CAT scan of the lung because of the history of smoking and nodule on the CAT scan. CAT scan of the lung was done and the patient has extensive COPD. She has in left apex and is status post inflammatory scarring, mostly slightly Pulmonary's opinion. PHYSICAL EXAMINATION: VITAL SIGNS: Blood pressure 125/70, pulse 111, respiratory rate 20, temperature 97.7. LUNGS: Decreased air entry. Positive rhonchi. CARDIOVASCULAR SYSTEM: S1 and S2, regular. No heaves. No thrills. ABDOMEN: Soft and nontender. Bowel sounds are positive. ASSESSMENT: 1. Chronic obstructive pulmonary disease. 2. Lung nodule. 3. Tracheobronchitis. PLAN: Medical management. Monitor the patient. David Gallo MD
[2018-01-01] MEDS: Enoxaparin 40 mg Syringe SC SCH (11:20)
--- NOTE | 2018-01-01 12:26 | CP.PCM.CON ---
History of Present Illness - History of Present Illness History of Present Illness: Consult note for Dr. Ordonez Patient is a 67 year old female with a past medical history of COPD, HTN, Right breast cancer, DM2, epilepsy, who presents to the ED with complaints of SOB and productive cough; admitted with COPD exacerbation. Patient reports a 15 pound weight loss over the past few months due to early satiety. Denies new onset cough, hemoptysis, night sweats. Patient reports a 50 pack year smoking history. A nodule found on imaging 1 year was too small for further workup, patient advised to return to re-imaging in 1 year. While admitted, patient received a CT of the chest showing a nodular spiculated appearing density at the left anterior lobe measuring 12.8x6.8mm. Cardiothoracics was consulted for evaluation pending CT biopsy of lesion. PMHx: COPD, HTN, DM2, Right breast cancer, Epilepsy PSHx: appendectomy, cholecystectomy, tubal ligation SocHx: 50 pack year, denies alcohol/drug use FamHx: breast cancer Allergies: iron Review of Systems - Constitutional Constitutional: Weight Loss (2/2 to early satiety). absent: Excessive Sweating - Cardiovascular Cardiovascular: absent: Chest Pain - Respiratory Respiratory: absent: Cough, Dyspnea, Hemoptysis, Chest Congestion - Gastrointestinal Gastrointestinal: Constipation (chronic). absent: Hematochezia - Genitourinary Genitourinary: absent: Dysuria - Musculoskeletal Musculoskeletal: Numbness (right foot) Past Patient History - Infectious Disease Hx of Infectious Diseases: None - Tetanus Immunizations Tetanus Immunization: Unknown - Past Medical History & Family History Past Medical History?: Yes - Past Social History Smoking Status: Light Smoker < 10 Cigarettes Daily - CARDIAC Hx Hypertension: Yes - PULMONARY Hx Chronic Obstructive Pulmonary Disease (COPD): Yes - NEUROLOGICAL Hx Seizures: Yes (about 20 yrs. ago) - HEENT Hx HEENT Problems: Yes Hx Cataracts: Yes Other/Comment: Use eyeglasses for reading - RENAL Hx Chronic Kidney Disease: No - ENDOCRINE/METABOLIC Hx Endocrine Disorders: Yes Hx Diabetes Mellitus Type 2: Yes - HEMATOLOGICAL/ONCOLOGICAL Hx Human Immunodeficiency Virus (HIV): No - INTEGUMENTARY Hx Dermatological Problems: No - MUSCULOSKELETAL/RHEUMATOLOGICAL Hx Arthritis: Yes - GASTROINTESTINAL Hx Gastrointestinal Disorders: No - GENITOURINARY/GYNECOLOGICAL Other/Comment: kidney stones - PSYCHIATRIC Hx Substance Use: No - SURGICAL HISTORY Hx Appendectomy: Yes Hx Cholecystectomy: Yes - ANESTHESIA Hx Anesthesia: Yes Hx Anesthesia Reactions: No Hx Malignant Hyperthermia: No Meds Allergies/Adverse Reactions: Allergies Allergy/AdvReac Type Severity Reaction Status Date / Time iron Allergy REDNESS Verified 12/29/17 11:37 - Medications Medications: Current Medications Acetaminophen (Tylenol 325mg Tab) 650 mg PO Q6 PRN PRN Reason: Pain, moderate (4-7) Last Admin: 12/30/17 19:34 Dose: 650 mg Albuterol (Ventolin Hfa 90 Mcg/Actuation (8 G)) 2 puff IH RQ6 PRN PRN Reason: Wheezing Last Admin: 12/31/17 08:00 Dose: 2 inhaler Albuterol Sulfate (Albuterol 0.083% Inhal Kaylynn (2.5 Mg/3 Ml) Ud) 2.5 mg IH RQ6 [facility] Last Admin: 01/01/18 08:00 Dose: 2.5 mg Amlodipine Besylate (Norvasc) 5 mg PO DAILY [facility] Last Admin: 01/01/18 11:20 Dose: 5 mg Aspirin (Ecotrin) 81 mg PO DAILY [facility] Last Admin: 01/01/18 11:20 Dose: 81 mg Enoxaparin Sodium (Lovenox) 40 mg SC DAILY [facility] Last Admin: 01/01/18 11:20 Dose: 40 mg Fluticasone/Vilanterol (Breo Ellipta 200-25 Mcg Inh) 1 puff INH RQ24 [facility] Last Admin: 01/01/18 08:01 Dose: 1 puff Glimepiride (Amaryl) 2 mg PO DAILY [facility] Last Admin: 01/01/18 11:20 Dose: 2 mg Azithromycin 500 mg/ Sodium (Chloride) 250 mls @ 167 mls/hr IVPB Q24H [facility]; Protocol Last Admin: 12/31/17 17:00 Dose: 167 mls/hr Insulin Human Regular (Novolin R) 0 unit SC ACHS [facility]; Protocol Last Admin: 01/01/18 08:22 Dose: 4 unit Methylprednisolone (Solu-Medrol) 60 mg IV Q12 [facility] Last Admin: 01/01/18 11:20 Dose: 60 mg Nicotine (Nicoderm Cq) 1 patch TD DAILY [facility] Last Admin: 01/01/18 11:21 Dose: 1 patch Oxycodone/Acetaminophen (Percocet 5/325 Mg Tab) 1 tab PO Q4H PRN PRN Reason: Pain, moderate (4-7) Stop: 01/02/18 19:44 Last Admin: 01/01/18 08:24 Dose: 1 tab Tiotropium [place] (Spiriva) 18 mcg INH RQ24 [facility] Last Admin: 01/01/18 08:00 Dose: 18 mcg Physical Exam - Constitutional Appears: Non-toxic, No Acute Distress - Head Exam Head Exam: ATRAUMATIC, NORMAL INSPECTION, NORMOCEPHALIC - Eye Exam Eye Exam: EOMI, Normal appearance - ENT Exam ENT Exam: Mucous Membranes Moist, Normal Exam - Neck Exam Neck exam: Positive for: Normal Inspection - Respiratory Exam Respiratory Exam: Decreased Breath Sounds. absent: Rales, Wheezes, Respiratory Distress - Cardiovascular Exam Cardiovascular Exam: Tachycardia, REGULAR RHYTHM - GI/Abdominal Exam GI & Abdominal Exam: Soft. absent: Distended, Tenderness - Extremities Exam Extremities exam: Positive for: normal inspection. Negative for: calf tenderness, pedal edema - Neurological Exam Neurological exam: Alert, Oriented x3 - Psychiatric Exam Psychiatric exam: Normal Affect, Normal Mood - Skin Skin Exam: Dry, Intact, Normal Color, Warm Results - Vital Signs Recent Vital Signs: Last Vital Signs Temp 97.8 F 01/01/18 08:53 Pulse 97 H 01/01/18 08:53 Resp 20 01/01/18 08:53 BP 130/64 01/01/18 08:53 Pulse Ox 95 01/01/18 08:53 - Labs Result Diagrams: 12/29/17 12:40 12/29/17 12:40 Labs: Laboratory Results - last 24 hr 12/30/17 12/30/17 12/30/17 11:26 16:58 16:59 POC Glucose (mg/dL) 342 H 425 H* 391 H 12/30/17 12/31/17 12/31/17 21:30 06:27 12:14 POC Glucose (mg/dL) 272 H 153 H 191 H 12/31/17 12/31/17 01/01/18 16:11 21:13 06:44 POC Glucose (mg/dL) 245 H 237 H 250 H Assessment & Plan - Assessment and Plan (Free Text) Assessment: 67 year old female admitted for COPD exacerbation, evaluated for STEPHANI spiculated nodule. Plan: -f/u CT biopsy results -PET scan to follow -If biopsy positive for malignancy, PET to stage and plan for outpatient surgery with Dr. Ordonez, office # [phone] -patient stable to follow up outpatient with surgery -medical management per primary Will discuss with Dr. José Luis Frazier, PGY-1
[2018-01-01] MEDS: Azithromycin 500 MG in Sodium Chloride 0.9% 250 ML IVPB SCH (17:00)
--- NOTE | 2018-01-01 23:16 | CP.PCM.PN ---
Subjective - Subjective Subjective: dictated Objective - Vital Signs/Intake and Output Vital Signs (last 24 hours): Temp Pulse Resp BP Pulse Ox 97.8 F 97 H 20 130/64 95 01/01/18 08:53 01/01/18 08:53 01/01/18 08:53 01/01/18 08:53 01/01/18 13:14 - Medications Medications: Current Medications Acetaminophen (Tylenol 325mg Tab) 650 mg PO Q6 PRN PRN Reason: Pain, moderate (4-7) Last Admin: 12/30/17 19:34 Dose: 650 mg Albuterol (Ventolin Hfa 90 Mcg/Actuation (8 G)) 2 puff IH RQ6 PRN PRN Reason: Wheezing Last Admin: 12/31/17 08:00 Dose: 2 inhaler Albuterol Sulfate (Albuterol 0.083% Inhal Kaylynn (2.5 Mg/3 Ml) Ud) 2.5 mg IH RQ6 [facility] Last Admin: 01/01/18 19:31 Dose: 2.5 mg Amlodipine Besylate (Norvasc) 5 mg PO DAILY [facility] Last Admin: 01/01/18 11:20 Dose: 5 mg Aspirin (Ecotrin) 81 mg PO DAILY [facility] Last Admin: 01/01/18 11:20 Dose: 81 mg Enoxaparin Sodium (Lovenox) 40 mg SC DAILY [facility] Last Admin: 01/01/18 11:20 Dose: 40 mg Fluticasone/Vilanterol (Breo Ellipta 200-25 Mcg Inh) 1 puff INH RQ24 [facility] Last Admin: 01/01/18 08:01 Dose: 1 puff Glimepiride (Amaryl) 2 mg PO DAILY [facility] Last Admin: 01/01/18 11:20 Dose: 2 mg Azithromycin 500 mg/ Sodium (Chloride) 250 mls @ 167 mls/hr IVPB Q24H [facility]; Protocol Last Admin: 01/01/18 17:00 Dose: 167 mls/hr Insulin Human Regular (Novolin R) 0 unit SC ACHS [facility]; Protocol Last Admin: 01/01/18 21:38 Dose: Not Given Methylprednisolone (Solu-Medrol) 60 mg IV Q12 [facility] Last Admin: 01/01/18 22:30 Dose: 60 mg Nicotine (Nicoderm Cq) 1 patch TD DAILY [facility] Last Admin: 01/01/18 11:21 Dose: 1 patch Oxycodone/Acetaminophen (Percocet 5/325 Mg Tab) 1 tab PO Q4H PRN PRN Reason: Pain, moderate (4-7) Stop: 01/02/18 19:44 Last Admin: 01/01/18 08:24 Dose: 1 tab Tiotropium [place] (Spiriva) 18 mcg INH RQ24 [facility] Last Admin: 01/01/18 08:00 Dose: 18 mcg - Labs Labs: 12/29/17 12:40 12/29/17 12:40 PT 12.3 SECONDS (9.7-12.2) H 12/29/17 12:40 INR 1.1 12/29/17 12:40 APTT 34 SECONDS (21-34) 12/29/17 12:40
[2018-01-02] MEDS: Oxycodone/Acetaminophen 5/325 mg Tab PO PRN ×2 (00:21→09:06)
[2018-01-02] MEDS: Albuterol 0.083% Inhal Sol (2.5 mg/3 mL) UD IH SCH ×4 (02:30→19:54)
--- NOTE | 2018-01-02 04:06 | PN ---
DATE: 01/01/2018 SUBJECTIVE: The patient is less shortness of breath, less cough, less wheezing. The patient is for positive biopsy of the lung mass. PHYSICAL EXAMINATION: VITAL SIGNS: BP 130/64, pulse 97, respiratory rate 20, temperature 97.8. LUNGS: Decreased air entry. Positive rhonchi. CARDIOVASCULAR SYSTEM: S1 and S2 are regular. ABDOMEN: Soft. ASSESSMENT: 1. Acute exacerbation of chronic obstructive pulmonary disease. 2. Diabetes. 3. Hypertension. PLAN: Continue current medications. Monitor the patient. David Gallo MD
--- NOTE | 2018-01-02 06:01 | CP.PCM.PN ---
Subjective - Date & Time of Evaluation Date of Evaluation: 01/01/18 Time of Evaluation: 17:15 - Subjective Subjective: Patient seen and evaluated Feels better Improved breathing COPD Physical examination - Head Exam Head Exam: ATRAUMATIC, NORMOCEPHALIC - ENT Exam ENT Exam: Mucous Membranes Moist - Neck Exam Neck Exam: Normal Inspection - Respiratory Exam Respiratory Exam: Decreased Breath Sounds - Cardiovascular Exam Cardiovascular Exam: REGULAR RHYTHM - GI/Abdominal Exam GI & Abdominal Exam: Soft, Normal Bowel Sounds - Extremities Exam Extremities Exam: Normal Inspection - Neurological Exam Neurological Exam: Alert Assessment and Plan (1) COPD exacerbation Assessment & Plan: taper steroids Nebulizer treatment LAMA/LABA Status: Acute (2) Lung nodule Assessment & Plan: Spiculated nodule left upper lobe with long history of smoking IR for biopsy Thoracic consult Pulmonary function test Status: Acute ECHO: Normal EF ProBNP Normal Objective - Vital Signs/Intake and Output Vital Signs (last 24 hours): Temp Pulse Resp BP Pulse Ox 97.9 F 100 H 20 122/65 94 L 01/01/18 23:30 01/01/18 23:30 01/01/18 23:30 01/01/18 23:30 01/01/18 23:30 Intake and Output: 01/01/18 01/02/18 18:59 06:59 Intake Total 300 Balance 300 - Medications Medications: Current Medications Acetaminophen (Tylenol 325mg Tab) 650 mg PO Q6 PRN PRN Reason: Pain, moderate (4-7) Last Admin: 12/30/17 19:34 Dose: 650 mg Albuterol (Ventolin Hfa 90 Mcg/Actuation (8 G)) 2 puff IH RQ6 PRN PRN Reason: Wheezing Last Admin: 12/31/17 08:00 Dose: 2 inhaler Albuterol Sulfate (Albuterol 0.083% Inhal Kaylynn (2.5 Mg/3 Ml) Ud) 2.5 mg IH RQ6 [facility] Last Admin: 01/02/18 02:30 Dose: 2.5 mg Amlodipine Besylate (Norvasc) 5 mg PO DAILY [facility] Last Admin: 01/01/18 11:20 Dose: 5 mg Aspirin (Ecotrin) 81 mg PO DAILY [facility] Last Admin: 01/01/18 11:20 Dose: 81 mg Enoxaparin Sodium (Lovenox) 40 mg SC DAILY [facility] Last Admin: 01/01/18 11:20 Dose: 40 mg Fluticasone/Vilanterol (Breo Ellipta 200-25 Mcg Inh) 1 puff INH RQ24 [facility] Last Admin: 01/01/18 08:01 Dose: 1 puff Glimepiride (Amaryl) 2 mg PO DAILY [facility] Last Admin: 01/01/18 11:20 Dose: 2 mg Azithromycin 500 mg/ Sodium (Chloride) 250 mls @ 167 mls/hr IVPB Q24H [facility]; Pr otocol Last Admin: 01/01/18 17:00 Dose: 167 mls/hr Insulin Human Regular (Novolin R) 0 unit SC ACHS [facility]; Protocol Last Admin: 01/01/18 21:38 Dose: Not Given Methylprednisolone (Solu-Medrol) 60 mg IV Q12 [facility] Last Admin: 01/01/18 22:30 Dose: 60 mg Nicotine (Nicoderm Cq) 1 patch TD DAILY [facility] Last Admin: 01/01/18 11:21 Dose: 1 patch Oxycodone/Acetaminophen (Percocet 5/325 Mg Tab) 1 tab PO Q4H PRN PRN Reason: Pain, moderate (4-7) Stop: 01/02/18 19:44 Last Admin: 01/02/18 00:21 Dose: 1 tab Tiotropium [place] (Spiriva) 18 mcg INH RQ24 [facility] Last Admin: 01/01/18 08:00 Dose: 18 mcg - Labs Labs: 12/29/17 12:40 12/29/17 12:40 PT 12.3 SECONDS (9.7-12.2) H 12/29/17 12:40 INR 1.1 12/29/17 12:40 APTT 34 SECONDS (21-34) 12/29/17 12:40
[2018-01-02] MEDS: Tiotropium 18 mcg Cap For Inhalation INH SCH (08:00)
[2018-01-02] MEDS: Fluticasone-Vilanterol 200/25mcg Diskus INH SCH (08:00)
[2018-01-02] MEDS: (Novolin R) Insulin Human Regular 100 units/ml vial SC SCH ×4 (08:29→22:40)
[2018-01-02 08:35] LABS: BASO % 0.1 % (0.0-2.0); HEMOGLOBIN 10.2 g/dL (11.0-16.0); LYMPH # 1.2 K/uL (1.0-4.3); LYMPH % 9.1 % (20.0-40.0); MEAN CELL VOLUME 71.7 fL (81.0-99.0); MEAN CORPUSCULAR HEMOGLOBIN 22.7 pg (27.0-31.0); MEAN CORPUSCULAR HGB CONC 31.6 g/dL (33.0-37.0); MEAN PLATELET VOLUME 8.5 fL (7.2-11.7); MONO # 0.7 K/uL (0.0-0.8); MONO % 5.1 % (0.0-10.0); NEUT # 11.8 K/uL (1.8-7.0); NEUT % 85.7 % (50.0-75.0); NRBC % 0.1 % (0.0-2.0); PLATELET COUNT 246 K/uL (130-400); RBC 4.48 Mil/uL (3.80-5.20); RED CELL DISTRIBUTION WIDTH 19.8 % (11.5-14.5); WHITE BLOOD COUNT 13.8 K/uL (4.8-10.8)
[2018-01-02 08:56] LABS: INR 1.2; PROTHROMBIN TIME 12.7 SECONDS (9.7-12.2)
[2018-01-02 09:15] LABS: ANISOCYTOSIS SLIGHT; HYPOCHROMIC SLIGHT; LYMPHOCYTE 14 % (20-40); MONOCYTE 5 % (0-10); NEUTROPHIL 81 % (50-75); PLATELET ESTIMATE NORMAL (NORMAL); POIKILOCYTOSIS SLIGHT; TOTAL CELLS COUNTED 100
[2018-01-02 09:33] LABS: BLOOD UREA NITROGEN 25 mg/dL (7-17); CALCIUM 8.7 mg/dl (8.6-10.4); GFR NON-AFRICAN AMERICAN > 60
--- NOTE | 2018-01-02 16:31 | CP.PCM.PN ---
Subjective - Date & Time of Evaluation Date of Evaluation: 01/02/18 Time of Evaluation: 15:00 - Subjective Subjective: Patient seen and examined at bedside, sitting down comfortably. Afebrile and in no acute distress. Denies shortness of breath, chest pain, fever. States cough has improved with nebulizer treatment. Patient complains of left sided abdominal pain that radiates to her back; as per daughter, this has been chronic since her cholecystectomy. IR biopsy scheduled for tomorrow. PFT results pending.? -CT chest (12/30): significant centrilobular and panlobular with upper lobe predominance; elliptical shaped nodule left apex/upper lobe that exhibit spiculated borders-likely represents postinflammatory scarring, however the possibility of underlying scar carcinoma not excluded; clinical correlation recommended small nodule right upper lobe; additional tiny nodule seen in the right lower lobe of bordering fissure; numerous tiny bilateral granulomata in the upper and lower lobes. Objective - Vital Signs/Intake and Output Vital Signs (last 24 hours): Temp Pulse Resp BP Pulse Ox 97.9 F 109 H 20 138/57 L 98 01/02/18 15:30 01/02/18 15:30 01/02/18 15:30 01/02/18 15:30 01/02/18 15:30 Intake and Output: 01/02/18 01/02/18 06:59 18:59 Intake Total 420 Balance 420 - Medications Medications: Current Medications Acetaminophen (Tylenol 325mg Tab) 650 mg PO Q6 PRN PRN Reason: Pain, moderate (4-7) Last Admin: 12/30/17 19:34 Dose: 650 mg Albuterol (Ventolin Hfa 90 Mcg/Actuation (8 G)) 2 puff IH RQ6 PRN PRN Reason: Wheezing Last Admin: 12/31/17 08:00 Dose: 2 inhaler Albuterol Sulfate (Albuterol 0.083% Inhal Kaylynn (2.5 Mg/3 Ml) Ud) 2.5 mg IH RQ6 [facility] Last Admin: 01/02/18 13:45 Dose: 2.5 mg Amlodipine Besylate (Norvasc) 5 mg PO DAILY [facility] Last Admin: 01/02/18 09:06 Dose: 5 mg Aspirin (Ecotrin) 81 mg PO DAILY [facility] Last Admin: 01/01/18 11:20 Dose: 81 mg Enoxaparin Sodium (Lovenox) 40 mg SC DAILY [facility] Last Admin: 01/01/18 11:20 Dose: 40 mg Fluticasone/Vilanterol (Breo Ellipta 200-25 Mcg Inh) 1 puff INH RQ24 [facility] Last Admin: 01/02/18 08:00 Dose: 1 puff Glimepiride (Amaryl) 2 mg PO DAILY [facility] Last Admin: 01/02/18 09:08 Dose: 2 mg Azithromycin 500 mg/ Sodium (Chloride) 250 mls @ 167 mls/hr IVPB Q24H [facility]; Protocol Last Admin: 01/01/18 17:00 Dose: 167 mls/hr Insulin Human Regular (Novolin R) 0 unit SC ACHS [facility]; Protocol Last Admin: 01/02/18 12:18 Dose: 8 unit Methylprednisolone (Solu-Medrol) 60 mg IV Q12 [facility] Last Admin: 01/02/18 09:09 Dose: 60 mg Nicotine (Nicoderm Cq) 1 patch TD DAILY [facility] Last Admin: 01/02/18 09:09 Dose: 1 patch Oxycodone/Acetaminophen (Percocet 5/325 Mg Tab) 1 tab PO Q4H PRN PRN Reason: Pain, moderate (4-7) Stop: 01/02/18 19:44 Last Admin: 01/02/18 09:06 Dose: 1 tab Tiotropium [place] (Spiriva) 18 mcg INH RQ24 [facility] Last Admin: 01/02/18 08:00 Dose: 18 mcg - Labs Labs: 01/02/18 08:22 01/02/18 08:22 PT 12.7 SECONDS (9.7-12.2) H 01/02/18 08:22 INR 1.2 01/02/18 08:22 APTT 28 SECONDS (21-34) 01/02/18 08:22 Assessment and Plan (1) COPD exacerbation Status: Acute (2) Lung nodule Status: Acute
[2018-01-02] MEDS: Azithromycin 500 MG in Sodium Chloride 0.9% 250 ML IVPB SCH (17:58)
--- NOTE | 2018-01-02 23:05 | CP.PCM.PN ---
Subjective - Subjective Subjective: dictated Objective - Vital Signs/Intake and Output Vital Signs (last 24 hours): Temp Pulse Resp BP Pulse Ox 97.9 F 109 H 20 138/57 L 98 01/02/18 15:30 01/02/18 15:30 01/02/18 15:30 01/02/18 15:30 01/02/18 15:30 - Medications Medications: Current Medications Acetaminophen (Tylenol 325mg Tab) 650 mg PO Q6 PRN PRN Reason: Pain, moderate (4-7) Last Admin: 12/30/17 19:34 Dose: 650 mg Albuterol (Ventolin Hfa 90 Mcg/Actuation (8 G)) 2 puff IH RQ6 PRN PRN Reason: Wheezing Last Admin: 12/31/17 08:00 Dose: 2 inhaler Albuterol Sulfate (Albuterol 0.083% Inhal Kaylynn (2.5 Mg/3 Ml) Ud) 2.5 mg IH RQ6 [facility] Last Admin: 01/02/18 19:54 Dose: 2.5 mg Amlodipine Besylate (Norvasc) 5 mg PO DAILY [facility] Last Admin: 01/02/18 09:06 Dose: 5 mg Aspirin (Ecotrin) 81 mg PO DAILY [facility] Last Admin: 01/01/18 11:20 Dose: 81 mg Enoxaparin Sodium (Lovenox) 40 mg SC DAILY [facility] Last Admin: 01/01/18 11:20 Dose: 40 mg Fluticasone/Vilanterol (Breo Ellipta 200-25 Mcg Inh) 1 puff INH RQ24 [facility] Last Admin: 01/02/18 08:00 Dose: 1 puff Glimepiride (Amaryl) 2 mg PO DAILY [facility] Last Admin: 01/02/18 09:08 Dose: 2 mg Azithromycin 500 mg/ Sodium (Chloride) 250 mls @ 167 mls/hr IVPB Q24H [facility]; Protocol Last Admin: 01/02/18 17:58 Dose: 167 mls/hr Insulin Human Regular (Novolin R) 0 unit SC ACHS [facility]; Protocol Last Admin: 01/02/18 22:40 Dose: 2 unit Methylprednisolone (Solu-Medrol) 60 mg IV Q12 [facility] Last Admin: 01/02/18 22:40 Dose: 60 mg Nicotine (Nicoderm Cq) 1 patch TD DAILY [facility] Last Admin: 01/02/18 09:09 Dose: 1 patch Tiotropium [place] (Spiriva) 18 mcg INH RQ24 [facility] Last Admin: 01/02/18 08:00 Dose: 18 mcg - Labs Labs: 01/02/18 08:22 01/02/18 08:22 PT 12.7 SECONDS (9.7-12.2) H 01/02/18 08:22 INR 1.2 01/02/18 08:22 APTT 28 SECONDS (21-34) 01/02/18 08:22
--- NOTE | 2018-01-03 02:53 | PN ---
DATE: 01/02/2018 SUBJECTIVE: The patient is for CT surgery evaluation. No fever. No chills. PHYSICAL EXAMINATION: VITAL SIGNS: Blood pressure 138/57, pulse , respiratory rate 20, temperature 97.9. LUNGS: Clear. CARDIOVASCULAR SYSTEM: S1, S2, regular. ABDOMEN: Soft. ASSESSMENT: 1. Lung mass, pending evaluation. 2. Chronic obstructive pulmonary disease. 3. Hypertension. PLAN: Await CT Surgery eval. Monitor the patient. David Gallo MD
[2018-01-03] MEDS: Tiotropium 18 mcg Cap For Inhalation INH SCH (07:55)
[2018-01-03] MEDS: Fluticasone-Vilanterol 200/25mcg Diskus INH SCH (07:55)
[2018-01-03] MEDS: Albuterol 0.083% Inhal Sol (2.5 mg/3 mL) UD IH SCH ×4 (07:55→19:34)
[2018-01-03] MEDS: (Novolin R) Insulin Human Regular 100 units/ml vial SC SCH ×4 (08:23→22:47)
[2018-01-03] MEDS ORDERED: Midazolam 2 MG/2 ML VIAL ONE (13:24)
--- NOTE | 2018-01-03 14:59 | PCM.SURG1 ---
Surgeon's Initial Post Op Note - Surgeon's Notes Surgeon: Alonso Reid MD Latexer: NONE Type of Anesthesia: IV Sedation Pre-Operative Diagnosis: Left upper lobe lung nodule Operative Findings: CT showed an irregularly marginated nodule left upper lobe. Post-Operative Diagnosis: Left lung nodule Operation Performed: CT guided left lung nodule biopsy. Two 20-g core nodules removed. Post biosy CT showed no PTX. Specimen/Specimens Removed: 20-g core x 2 Estimated Blood Loss: EBL {In ML}: 0 Blood Products Given: N/A Drains Used: No Drains Post-Op Condition: Fair Date of Surgery/Procedure: 01/03/18 Time of Surgery/Procedure: 14:50
[2018-01-03 15:56] VITALS: RESP 20
--- NOTE | 2018-01-03 16:05 | CT ---
PROCEDURE: Date of procedure: 01/03/2018 Procedure: 1. CT-guided lung mass biopsy, CPT [address] Guidance for biopsy, [address] Radiation: 1310.31 mGy-cm Medications: The patient was sedated by anesthesiologist along with physiologic monitoring. HISTORY: Left upper lobe lung nodule TECHNIQUE: Following informed consent and procedure time out, the patient was placed supine on the CT table and noncontrast CT scan was performed. Noncontrast CT scan confirmed the presence of a 1.6 centimeter irregularly marginated left lung nodule. A skin localizer was placed on the patient's LEFT chest and a repeat CT scan was performed. The skin was marked, prepped, and draped in the usual sterile fashion. After the skin was anesthetized with lidocaine and the patient sedated by the anesthesiologist, a 20 gauge core needle was advanced percutaneously under direct CT guidance into the mass. Upon confirmation of needle position, Two 20-gauge core specimens were obtained and sent for routine pathology. The needle was removed and a xeroform dressing was applied. A post biopsy CT scan showed no pneumothorax. IMPRESSION: CT guided core biopsy left lung nodule.
[2018-01-03] MEDS: Azithromycin 500 MG in Sodium Chloride 0.9% 250 ML IVPB SCH (16:49)
--- NOTE | 2018-01-03 17:04 | CP.PCM.PN ---
Subjective - Date & Time of Evaluation Date of Evaluation: 01/03/18 Time of Evaluation: 14:50 - Subjective Subjective: Patient seen and examined at bedside, sitting down comfortably. Afebrile and in no acute distress. Patient states she still has occasional cough with yellow phlegm. Denies shortness of breath, chest pain, fever. patient is status post biopsy of lung nodule by IR PFTs reviewed Continue present treatment for now Follow-up pathology report Objective - Vital Signs/Intake and Output Vital Signs (last 24 hours): Temp Pulse Resp BP Pulse Ox 97.6 F 98 H 20 146/84 95 01/03/18 14:57 01/03/18 14:57 01/03/18 14:57 01/03/18 14:57 01/03/18 14:57 Intake and Output: 01/03/18 01/03/18 06:59 18:59 Intake Total 310 60 Balance 310 60 - Medications Medications: Current Medications Acetaminophen (Tylenol 325mg Tab) 650 mg PO Q6 PRN PRN Reason: Pain, moderate (4-7) Last Admin: 12/30/17 19:34 Dose: 650 mg Albuterol (Ventolin Hfa 90 Mcg/Actuation (8 G)) 2 puff IH RQ6 PRN PRN Reason: Wheezing Last Admin: 12/31/17 08:00 Dose: 2 inhaler Albuterol Sulfate (Albuterol 0.083% Inhal Kaylynn (2.5 Mg/3 Ml) Ud) 2.5 mg IH RQ6 [facility] Last Admin: 01/03/18 13:50 Dose: Not Given Amlodipine Besylate (Norvasc) 5 mg PO DAILY [facility] Last Admin: 01/03/18 10:45 Dose: 5 mg Aspirin (Ecotrin) 81 mg PO DAILY [facility] Last Admin: 01/01/18 11:20 Dose: 81 mg Enoxaparin Sodium (Lovenox) 40 mg SC DAILY [facility] Last Admin: 01/01/18 11:20 Dose: 40 mg Fluticasone/Vilanterol (Breo Ellipta 200-25 Mcg Inh) 1 puff INH RQ24 [facility] Last Admin: 01/03/18 07:55 Dose: 1 puff Glimepiride (Amaryl) 2 mg PO DAILY [facility] Last Admin: 01/03/18 09:29 Dose: Not Given Insulin Human Regular (Novolin R) 0 unit SC [facility]; Protocol Last Admin: 01/03/18 11:37 Dose: Not Given Methylprednisolone (Solu-Medrol) 40 mg IV Q12 [facility] Moxifloxacin HCl (Avelox) 400 mg PO DAILY [facility]; Protocol Nicotine (Nicoderm Cq) 1 patch TD DAILY [facility] Last Admin: 01/03/18 10:45 Dose: 1 patch Tiotropium [place] (Spiriva) 18 mcg INH RQ24 [facility] Last Admin: 01/03/18 07:55 Dose: 18 mcg - Labs Labs: 01/02/18 08:22 01/02/18 08:22 PT 12.7 SECONDS (9.7-12.2) H 01/02/18 08:22 INR 1.2 01/02/18 08:22 APTT 28 SECONDS (21-34) 01/02/18 08:22 Assessment and Plan (1) COPD exacerbation Status: Acute (2) Lung nodule Status: Acute
--- NOTE | 2018-01-03 18:29 | CARD ---
APPROVED REPORT Date of service: 01/01/2018 EXAM: Two-dimensional and M-mode echocardiogram with Doppler and color Doppler. Other Information Quality : GoodRhythm : INDICATION Dyspnea Chest Pain COPD RISK FACTORS Diabetes 2D DIMENSIONS LA Flakmo25 (18-58mL) M-Mode DIMENSIONS Left Atrium (MM)3.49 (2.5-4.0cm)IVSd0.73 (0.7-1.1cm) Aortic Root2.95 (2.2-3.7cm)LVDd5.16 (4.0-5.6cm) Aortic Cusp Exc.1.64 (1.5-2.0cm)PWd0.90 (0.7-1.1cm) FS (%) 32 %LVDs3.50 (2.0-3.8cm) TAPSE23.38 cmLVEF (%)60 (>50%) Aortic Valve AoV Peak Addvphla575.6cm/Jair Peak GR.11mmHg Mitral Valve MV E Bovgnczu28.5cm/sMV A Ydootdqe146.7cm/sE/A ratio0.8 TDI Lateral E' Peak V9.77cm/sMedial E' Peak V6.42cm/sE/Lateral E'8.3 E/Medial E'12.7 Tricuspid Valve TR Peak Emrlulom877eo/sTR Peak Gr.91liZoNDBI77tnJn LEFT VENTRICLE The left ventricle is normal size. There is normal left ventricular wall thickness. The left ventricular function is normal. The left ventricular ejection fraction is within the normal range. There is normal LV segmental wall motion. Transmitral Doppler flow pattern is abnormal. RIGHT VENTRICLE The right ventricle is normal size. ATRIA The left atrium size is normal. The right atrium size is normal. AORTIC VALVE The aortic valve is normal in structure. MITRAL VALVE The mitral valve is normal in structure. TRICUSPID VALVE There is trace to mild tricuspid regurgitation. <Conclusion> Normal LV systolic function. Diastolic dysfunction. Normal chamber size. Trace to mild TR.
[2018-01-03] MEDS: Oxycodone/Acetaminophen 5/325 mg Tab PO PRN (20:00)
--- NOTE | 2018-01-03 21:14 | CP.PCM.PN ---
Subjective - Subjective Subjective: dictated Objective - Vital Signs/Intake and Output Vital Signs (last 24 hours): Temp Pulse Resp BP Pulse Ox 97.8 F 96 H 20 136/69 95 01/03/18 15:05 01/03/18 15:05 01/03/18 15:05 01/03/18 15:05 01/03/18 15:05 Intake and Output: 01/03/18 01/04/18 18:59 06:59 Intake Total 60 Balance 60 - Medications Medications: Current Medications Acetaminophen (Tylenol 325mg Tab) 650 mg PO Q6 PRN PRN Reason: Pain, moderate (4-7) Last Admin: 12/30/17 19:34 Dose: 650 mg Albuterol (Ventolin Hfa 90 Mcg/Actuation (8 G)) 2 puff IH RQ6 PRN PRN Reason: Wheezing Last Admin: 12/31/17 08:00 Dose: 2 inhaler Albuterol Sulfate (Albuterol 0.083% Inhal Kaylynn (2.5 Mg/3 Ml) Ud) 2.5 mg IH RQ6 [facility] Last Admin: 01/03/18 19:34 Dose: Not Given Amlodipine Besylate (Norvasc) 5 mg PO DAILY [facility] Last Admin: 01/03/18 10:45 Dose: 5 mg Aspirin (Ecotrin) 81 mg PO DAILY [facility] Last Admin: 01/01/18 11:20 Dose: 81 mg Enoxaparin Sodium (Lovenox) 40 mg SC DAILY [facility] Last Admin: 01/01/18 11:20 Dose: 40 mg Fluticasone/Vilanterol (Breo Ellipta 200-25 Mcg Inh) 1 puff INH RQ24 [facility] Last Admin: 01/03/18 07:55 Dose: 1 puff Glimepiride (Amaryl) 2 mg PO DAILY [facility] Last Admin: 01/03/18 09:29 Dose: Not Given Insulin Human Regular (Novolin R) 0 unit SC [facility]; Protocol Last Admin: 01/03/18 17:30 Dose: 3 unit Methylprednisolone (Solu-Medrol) 40 mg IV Q12 [facility] Moxifloxacin HCl (Avelox) 400 mg PO DAILY [facility]; Protocol Nicotine (Nicoderm Cq) 1 patch TD DAILY [facility] Last Admin: 01/03/18 10:45 Dose: 1 patch Oxycodone/Acetaminophen (Percocet 5/325 Mg Tab) 1 tab PO Q4H PRN PRN Reason: Pain, severe (8-10) Stop: 01/06/18 19:46 Last Admin: 01/03/18 20:00 Dose: 1 tab Tiotropium [place] (Spiriva) 18 mcg INH RQ24 [facility] Last Admin: 01/03/18 07:55 Dose: 18 mcg - Labs Labs: 01/02/18 08:22 01/02/18 08:22 PT 12.7 SECONDS (9.7-12.2) H 01/02/18 08:22 INR 1.2 01/02/18 08:22 APTT 28 SECONDS (21-34) 01/02/18 08:22
[2018-01-03] MEDS: MethylPREDNISolone 40 mg Vial IV SCH (23:03)
[2018-01-04] MEDS: Albuterol 0.083% Inhal Sol (2.5 mg/3 mL) UD IH SCH ×4 (01:55→19:22)
--- NOTE | 2018-01-04 02:08 | PN ---
DATE: 01/03/2018 SUBJECTIVE: The patient is status post lung biopsy. She has pain at the site of operation. She is afebrile. No shortness of breath. No nausea or vomiting. PHYSICAL EXAMINATION: VITAL SIGNS: BP 136/69, pulse 96, respiratory rate 20, temperature 97.8. LUNGS: Clear. CARDIOVASCULAR SYSTEM: S1 and S2 are regular. ABDOMEN: Soft. ASSESSMENT: 1. Chronic obstructive pulmonary disorder. 2. Lung mass, status post biopsy. 3. Steroid-induced diabetes. PLAN: Continue current medications. Monitor the patient. David Gallo MD
[2018-01-04] MEDS: Oxycodone/Acetaminophen 5/325 mg Tab PO PRN ×3 (02:36→22:08)
[2018-01-04] MEDS: Tiotropium 18 mcg Cap For Inhalation INH SCH (08:00)
[2018-01-04] MEDS: Fluticasone-Vilanterol 200/25mcg Diskus INH SCH (08:00)
[2018-01-04] MEDS: (Novolin R) Insulin Human Regular 100 units/ml vial SC SCH ×4 (08:59→22:08)
[2018-01-04] MEDS: MethylPREDNISolone 40 mg Vial IV SCH ×2 (10:00→21:30)
--- NOTE | 2018-01-04 11:37 | RAD ---
Date of service: 01/04/2018 HISTORY: f/u s/p ct biopsy COMPARISON: Comparison made with chest radiograph 12/29/[address]-guided biopsy study 01/03/2018. TECHNIQUE: Chest PA and lateral FINDINGS: LUNGS: There is and apparent pneumothorax best visualized in the left CP angle region on frontal projection... Emphysematous changes upper lobe predominance. Elliptical shaped nodule left upper lobe is less well seen on this study as compared to prior CT scan. In situ right breast implant. PLEURA: No significant pleural effusion identified. No pneumothorax apparent. CARDIOVASCULAR: No aortic atherosclerotic calcification present. Normal cardiac size. No pulmonary vascular congestion. OSSEOUS STRUCTURES: No significant abnormalities. VISUALIZED UPPER ABDOMEN: Normal. OTHER FINDINGS: Multiple surgical clips right axilla consistent with prior lymph node dissection IMPRESSION: Small left basilar pneumothorax.. Findings discussed with 6 T Nurse Magaly at approximately 11:31 a.m. with written down and read back verification.. Left apical nodular lesion is not well delineated on this study compared to high-resolution CT scan. Please see above discussion for additional details and findings
--- NOTE | 2018-01-04 16:22 | CP.PCM.PN ---
Subjective - Date & Time of Evaluation Date of Evaluation: 01/04/18 Time of Evaluation: 10:40 - Subjective Subjective: Patient seen and examined at bedside, sitting down comfortably. Afebrile and in no acute distress. Denies shortness of breath, cough, chest pain, fever. S/p biopsy of left lung nodule by IR; pathology report pending. PFTs reviewed. Put on non-rebreather mask. Repeat CXR-monitor pneumothorax. -CXR (01/04): small left basilar pneumothorax Objective - Vital Signs/Intake and Output Vital Signs (last 24 hours): Temp Pulse Resp BP Pulse Ox 97.6 F 82 20 131/79 95 01/04/18 08:28 01/04/18 08:28 01/04/18 08:28 01/04/18 08:28 01/04/18 08:28 Intake and Output: 01/04/18 01/04/18 06:59 18:59 Intake Total 120 Balance 120 - Medications Medications: Current Medications Acetaminophen (Tylenol 325mg Tab) 650 mg PO Q6 PRN PRN Reason: Pain, moderate (4-7) Last Admin: 12/30/17 19:34 Dose: 650 mg Albuterol (Ventolin Hfa 90 Mcg/Actuation (8 G)) 2 puff IH RQ6 PRN PRN Reason: Wheezing Last Admin: 12/31/17 08:00 Dose: 2 inhaler Albuterol Sulfate (Albuterol 0.083% Inhal Kaylynn (2.5 Mg/3 Ml) Ud) 2.5 mg IH RQ6 [facility] Last Admin: 01/04/18 13:45 Dose: 2.5 mg Amlodipine Besylate (Norvasc) 5 mg PO DAILY [facility] Last Admin: 01/04/18 10:20 Dose: 5 mg Aspirin (Ecotrin) 81 mg PO DAILY [facility] Last Admin: 01/01/18 11:20 Dose: 81 mg Enoxaparin Sodium (Lovenox) 40 mg SC DAILY [facility] Last Admin: 01/01/18 11:20 Dose: 40 mg Fluticasone/Vilanterol (Breo Ellipta 200-25 Mcg Inh) 1 puff INH RQ24 [facility] Last Admin: 01/04/18 08:00 Dose: 1 puff Glimepiride (Amaryl) 2 mg PO DAILY [facility] Last Admin: 01/04/18 10:21 Dose: 2 mg Insulin Human Regular (Novolin R) 0 unit SC ACHS [facility]; Protocol Last Admin: 01/04/18 11:30 Dose: 2 unit Methylprednisolone (Solu-Medrol) 40 mg IV Q12 [facility] Last Admin: 01/04/18 10:00 Dose: 40 mg Moxifloxacin HCl (Avelox) 400 mg PO DAILY [facility]; Protocol Last Admin: 01/04/18 10:20 Dose: 400 mg Nicotine (Nicoderm Cq) 1 patch TD DAILY [facility] Last Admin: 01/04/18 10:21 Dose: 1 patch Oxycodone/Acetaminophen (Percocet 5/325 Mg Tab) 1 tab PO Q4H PRN PRN Reason: Pain, severe (8-10) Stop: 01/06/18 19:46 Last Admin: 01/04/18 09:31 Dose: 1 tab Tiotropium [place] (Spiriva) 18 mcg INH RQ24 [facility] Last Admin: 01/04/18 08:00 Dose: 18 mcg - Labs Labs: 01/02/18 08:22 01/02/18 08:22 PT 12.7 SECONDS (9.7-12.2) H 01/02/18 08:22 INR 1.2 01/02/18 08:22 APTT 28 SECONDS (21-34) 01/02/18 08:22 Assessment and Plan (1) COPD exacerbation Status: Acute (2) Lung nodule Assessment & Plan: PFTs noted Severe bullous disease High risk for surgery PET scan as outpatient Status: Acute
--- NOTE | 2018-01-04 17:07 | RAD ---
Date of service: 01/04/2018 HISTORY: Follow-up pneumothorax COMPARISON: None available. FINDINGS: LUNGS: Previously noted left-sided pneumothorax appears have increased in size and is now seen along the left lateral mid and upper lung field. New area of presumed atelectasis in the left lung base. Right lung is relatively clear. PLEURA: As above. No significant effusion CARDIOVASCULAR: Mild aortic atherosclerotic calcification present. Normal cardiac size. No pulmonary vascular congestion. OSSEOUS STRUCTURES: No significant abnormalities. VISUALIZED UPPER ABDOMEN: Metallic clips right upper quadrant of the abdomen consistent with prior cholecystectomy OTHER FINDINGS: Metallic clips right axillary region consistent with prior lymph node dissection IMPRESSION: Interval mild increase size left-sided pneumothorax.. New atelectasis left lung base
--- NOTE | 2018-01-04 17:37 | CARD ---
APPROVED REPORT Date of service: 12/29/2017 EKG Measurement Heart [id number] <Conclusion> Normal sinus rhythm Right axis deviation Pulmonary disease pattern Abnormal ECG
--- NOTE | 2018-01-04 21:28 | CP.PCM.PN ---
Subjective - Subjective Subjective: dictated Objective - Vital Signs/Intake and Output Vital Signs (last 24 hours): Temp Pulse Resp BP Pulse Ox 97.7 F 91 H 20 126/69 100 01/04/18 15:00 01/04/18 15:00 01/04/18 15:00 01/04/18 15:00 01/04/18 15:00 - Medications Medications: Current Medications Acetaminophen (Tylenol 325mg Tab) 650 mg PO Q6 PRN PRN Reason: Pain, moderate (4-7) Last Admin: 12/30/17 19:34 Dose: 650 mg Albuterol (Ventolin Hfa 90 Mcg/Actuation (8 G)) 2 puff IH RQ6 PRN PRN Reason: Wheezing Last Admin: 12/31/17 08:00 Dose: 2 inhaler Albuterol Sulfate (Albuterol 0.083% Inhal Kaylynn (2.5 Mg/3 Ml) Ud) 2.5 mg IH RQ6 [facility] Last Admin: 01/04/18 19:22 Dose: Not Given Amlodipine Besylate (Norvasc) 5 mg PO DAILY [facility] Last Admin: 01/04/18 10:20 Dose: 5 mg Aspirin (Ecotrin) 81 mg PO DAILY [facility] Last Admin: 01/01/18 11:20 Dose: 81 mg Enoxaparin Sodium (Lovenox) 40 mg SC DAILY [facility] Last Admin: 01/01/18 11:20 Dose: 40 mg Fluticasone/Vilanterol (Breo Ellipta 200-25 Mcg Inh) 1 puff INH RQ24 [facility] Last Admin: 01/04/18 08:00 Dose: 1 puff Glimepiride (Amaryl) 2 mg PO DAILY [facility] Last Admin: 01/04/18 10:21 Dose: 2 mg Insulin Human Regular (Novolin R) 0 unit SC ACHS [facility]; Protocol Last Admin: 01/04/18 18:01 Dose: 3 unit Methylprednisolone (Solu-Medrol) 40 mg IV Q12 [facility] Last Admin: 01/04/18 10:00 Dose: 40 mg Moxifloxacin HCl (Avelox) 400 mg PO DAILY [facility]; Protocol Last Admin: 01/04/18 10:20 Dose: 400 mg Nicotine (Nicoderm Cq) 1 patch TD DAILY [facility] Last Admin: 01/04/18 10:21 Dose: 1 patch Oxycodone/Acetaminophen (Percocet 5/325 Mg Tab) 1 tab PO Q4H PRN PRN Reason: Pain, severe (8-10) Stop: 01/06/18 19:46 Last Admin: 01/04/18 09:31 Dose: 1 tab Tiotropium [place] (Spiriva) 18 mcg INH RQ24 [facility] Last Admin: 01/04/18 08:00 Dose: 18 mcg - Labs Labs: 01/02/18 08:22 01/02/18 08:22 PT 12.7 SECONDS (9.7-12.2) H 01/02/18 08:22 INR 1.2 01/02/18 08:22 APTT 28 SECONDS (21-34) 01/02/18 08:22
--- NOTE | 2018-01-05 00:32 | PN ---
DATE: 01/04/2018 SUBJECTIVE: The patient has post procedure pneumothorax. She has some pain at the postop site. She is afebrile. No shortness of breath. The patient has been seen by pulmonary and the patient will be observed with repeated chest x-ray. PHYSICAL EXAMINATION: VITAL SIGNS: BP 126/69, pulse 91, respiratory rate 20, temperature 97.7. LUNGS: Decreased air entry. Positive rhonchi. CARDIOVASCULAR SYSTEM: S1, S2, regular. ABDOMEN: Soft. ASSESSMENT AND PLAN: 1. Exacerbation of chronic obstructive pulmonary disease. 2. Postprocedure pneumothorax and observe pneumothorax, if it increases call CT Surgery. 3. 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 4. Lung mass status post biopsy pending biopsy result. Monitor the patient. David Gallo MD
[2018-01-05] MEDS: Albuterol 0.083% Inhal Sol (2.5 mg/3 mL) UD IH SCH ×4 (01:00→19:18)
[2018-01-05] MEDS: (Novolin R) Insulin Human Regular 100 units/ml vial SC SCH ×4 (07:30→21:51)
[2018-01-05] MEDS: Tiotropium 18 mcg Cap For Inhalation INH SCH (07:50)
[2018-01-05] MEDS: Fluticasone-Vilanterol 200/25mcg Diskus INH SCH (07:50)
[2018-01-05] MEDS: MethylPREDNISolone 40 mg Vial IV SCH ×2 (11:41→22:21)
--- NOTE | 2018-01-05 12:18 | RAD ---
Date of service: 01/05/2018 HISTORY: Pneumothorax. COMPARISON: No prior. TECHNIQUE: Chest PA and lateral FINDINGS: LUNGS: Redemonstrated is a is a left-sided pneumothorax the largest visual component of which is located in the left lung base particularly in the CP angle region and to a lesser degree left lateral upper hemithorax and lung apex.. Mild left basilar atelectasis felt be present PLEURA: As above. No evidence of effusion. CARDIOVASCULAR: No aortic atherosclerotic calcification present. Normal cardiac size. No pulmonary vascular congestion. OSSEOUS STRUCTURES: No significant abnormalities. VISUALIZED UPPER ABDOMEN: Normal. OTHER FINDINGS: None. IMPRESSION: Redemonstrated is a is a left-sided pneumothorax the largest visual component of which is located in the left lung base particularly in the CP angle region and to a lesser degree left lateral upper hemithorax and lung apex.. Mild left basilar atelectasis felt be present
--- NOTE | 2018-01-05 12:49 | CP.PCM.PN ---
Subjective - Date & Time of Evaluation Date of Evaluation: 01/05/18 Time of Evaluation: 08:20 - Subjective Subjective: Patient seen and examined, family at bedside. Afebrile and in no acute distress. Patient denies any shortness of breath, cough, wheezing, nausea, vomiting, or headaches. CXR 01/04 @ 4pm - Interval mild increase size left-sided pneumothorax. New atelectasis left lung base. Plan - will repeat CXR today in the PM. Objective - Vital Signs/Intake and Output Vital Signs (last 24 hours): Temp Pulse Resp BP Pulse Ox 98.1 F 89 20 126/68 95 01/05/18 08:08 01/05/18 08:08 01/05/18 08:08 01/05/18 08:08 01/05/18 08:08 - Medications Medications: Current Medications Acetaminophen (Tylenol 325mg Tab) 650 mg PO Q6 PRN PRN Reason: Pain, moderate (4-7) Last Admin: 12/30/17 19:34 Dose: 650 mg Albuterol (Ventolin Hfa 90 Mcg/Actuation (8 G)) 2 puff IH RQ6 PRN PRN Reason: Wheezing Last Admin: 12/31/17 08:00 Dose: 2 inhaler Albuterol Sulfate (Albuterol 0.083% Inhal Kaylynn (2.5 Mg/3 Ml) Ud) 2.5 mg IH RQ6 [facility] Last Admin: 01/05/18 07:50 Dose: 2.5 mg Amlodipine Besylate (Norvasc) 5 mg PO DAILY [facility] Last Admin: 01/05/18 11:41 Dose: 5 mg Aspirin (Ecotrin) 81 mg PO DAILY [facility] Last Admin: 01/01/18 11:20 Dose: 81 mg Enoxaparin Sodium (Lovenox) 40 mg SC DAILY [facility] Last Admin: 01/01/18 11:20 Dose: 40 mg Fluticasone/Vilanterol (Breo Ellipta 200-25 Mcg Inh) 1 puff INH RQ24 [facility] Last Admin: 01/05/18 07:50 Dose: 1 puff Glimepiride (Amaryl) 2 mg PO DAILY [facility] Last Admin: 01/05/18 11:41 Dose: 2 mg Insulin Human Regular (Novolin R) 0 unit SC [facility]; Protocol Last Admin: 01/05/18 12:19 Dose: Not Given Methylprednisolone (Solu-Medrol) 40 mg IV Q12 [facility] Last Admin: 01/05/18 11:41 Dose: 40 mg Moxifloxacin HCl (Avelox) 400 mg PO DAILY [facility]; Protocol Last Admin: 01/05/18 11:41 Dose: 400 mg Nicotine (Nicoderm Cq) 1 patch TD DAILY [facility] Last Admin: 01/05/18 11:42 Dose: 1 patch Oxycodone/Acetaminophen (Percocet 5/325 Mg Tab) 1 tab PO Q4H PRN PRN Reason: Pain, severe (8-10) Stop: 01/06/18 19:46 Last Admin: 01/04/18 22:08 Dose: 1 tab Tiotropium [place] (Spiriva) 18 mcg INH RQ24 [facility] Last Admin: 01/05/18 07:50 Dose: 18 mcg - Labs Labs: 01/02/18 08:22 01/02/18 08:22 PT 12.7 SECONDS (9.7-12.2) H 01/02/18 08:22 INR 1.2 01/02/18 08:22 APTT 28 SECONDS (21-34) 01/02/18 08:22 Assessment and Plan (1) COPD exacerbation Status: Acute (2) Lung nodule Status: Acute
--- NOTE | 2018-01-05 13:21 | RAD ---
Date of service: 01/05/2018 HISTORY: Follow-up pneumothorax COMPARISON: The the FINDINGS: LUNGS: Redemonstrated is a small left-sided pneumothorax most conspicuous component of which is seen in the left CP angle region. Mild left basilar atelectasis. PLEURA: No significant pleural effusion identified. CARDIOVASCULAR: Mild aortic atherosclerotic calcification present. Normal cardiac size. No pulmonary vascular congestion. OSSEOUS STRUCTURES: No significant abnormalities. VISUALIZED UPPER ABDOMEN: Normal. OTHER FINDINGS: None. IMPRESSION: Redemonstrated is a small left-sided pneumothorax most conspicuous component of which is seen in the left CP angle region. Mild left basilar atelectasis
[2018-01-05 13:58] LABS: BASO % 0.1 % (0.0-2.0); HEMOGLOBIN 10.5 g/dL (11.0-16.0); LYMPH # 1.5 K/uL (1.0-4.3); LYMPH % 7.6 % (20.0-40.0); MEAN CELL VOLUME 70.8 fL (81.0-99.0); MEAN CORPUSCULAR HEMOGLOBIN 22.9 pg (27.0-31.0); MEAN CORPUSCULAR HGB CONC 32.4 g/dL (33.0-37.0); MEAN PLATELET VOLUME 8.1 fL (7.2-11.7); MONO # 1.2 K/uL (0.0-0.8); MONO % 6.4 % (0.0-10.0); NEUT # 16.5 K/uL (1.8-7.0); NEUT % 85.9 % (50.0-75.0); NRBC % 0.1 % (0.0-2.0); PLATELET COUNT 269 K/uL (130-400); RBC 4.59 Mil/uL (3.80-5.20); RED CELL DISTRIBUTION WIDTH 20.2 % (11.5-14.5); WHITE BLOOD COUNT 19.2 K/uL (4.8-10.8)
[2018-01-05 14:19] LABS: ALB/GLOB RATIO 1.1 (1.0-2.1); ALBUMIN 3.3 g/dL (3.5-5.0); ALT/SGPT 56 U/L (9-52); AST/SGOT 46 U/L (14-36); BLOOD UREA NITROGEN 26 mg/dL (7-17); CALCIUM 8.8 mg/dl (8.6-10.4); GFR NON-AFRICAN AMERICAN > 60
[2018-01-05 14:31] LABS: BANDS 2 % (0-2); LYMPHOCYTE 7 % (20-40); MONOCYTE 2 % (0-10); NEUTROPHIL 89 % (50-75); TOTAL CELLS COUNTED 100
[2018-01-05 14:33] LABS: ANISOCYTOSIS SLIGHT; HYPOCHROMIC SLIGHT; PLATELET ESTIMATE NORMAL (NORMAL); POLYCHROMIC SLIGHT
[2018-01-05] MEDS ORDERED: Alum-Mag Hydrox-Simethicone Susp (30 mL) PO PRN (17:48)
[2018-01-05] MEDS ORDERED: Alum-Mag Hydrox-Simethicone Susp (30 mL) PO SCH (18:00)
[2018-01-05] MEDS: Oxycodone/Acetaminophen 5/325 mg Tab PO PRN (23:44)
[2018-01-06 00:51] VITALS: TEMP 97.9
[2018-01-06] MEDS: Albuterol 0.083% Inhal Sol (2.5 mg/3 mL) UD IH SCH ×2 (01:37→08:35)
--- NOTE | 2018-01-06 03:31 | CP.PCM.PN ---
Subjective - Date & Time of Evaluation Date of Evaluation: 01/05/18 - Subjective Subjective: dictated Objective - Vital Signs/Intake and Output Vital Signs (last 24 hours): Temp Pulse Resp BP Pulse Ox 97.9 F 99 H 20 139/65 96 01/06/18 00:00 01/06/18 00:00 01/06/18 00:00 01/06/18 00:00 01/06/18 00:00 - Medications Medications: Current Medications Acetaminophen (Tylenol 325mg Tab) 650 mg PO Q6 PRN PRN Reason: Pain, moderate (4-7) Last Admin: 12/30/17 19:34 Dose: 650 mg Al Hydrox/Mg Hydrox/Simethicone (Maalox Plus 30 Ml) 15 ml PO TID PRN PRN Reason: Indigestion / Heartburn Last Admin: 01/05/18 18:35 Dose: 15 ml Albuterol (Ventolin Hfa 90 Mcg/Actuation (8 G)) 2 puff IH RQ6 PRN PRN Reason: Wheezing Last Admin: 12/31/17 08:00 Dose: 2 inhaler Albuterol Sulfate (Albuterol 0.083% Inhal [place]lynn (2.5 Mg/3 Ml) Ud) 2.5 mg IH RQ6 [facility] Last Admin: 01/06/18 01:37 Dose: Not Given Amlodipine Besylate (Norvasc) 5 mg PO DAILY [facility] Last Admin: 01/05/18 11:41 Dose: 5 mg Aspirin (Ecotrin) 81 mg PO DAILY [facility] Last Admin: 01/01/18 11:20 Dose: 81 mg Enoxaparin Sodium (Lovenox) 40 mg SC DAILY [facility] Last Admin: 01/01/18 11:20 Dose: 40 mg Fluticasone/Vilanterol (Breo Ellipta 200-25 Mcg Inh) 1 puff INH RQ24 [facility] Last Admin: 01/05/18 07:50 Dose: 1 puff Glimepiride (Amaryl) 2 mg PO DAILY [facility] Last Admin: 01/05/18 11:41 Dose: 2 mg Insulin Human Regular (Novolin R) 0 unit SC [facility]; Protocol Last Admin: 01/05/18 21:51 Dose: Not Given Methylprednisolone (Solu-Medrol) 40 mg IV Q12 [facility] Last Admin: 01/05/18 22:21 Dose: 40 mg Moxifloxacin HCl (Avelox) 400 mg PO DAILY [facility]; Protocol Last Admin: 01/05/18 11:41 Dose: 400 mg Nicotine (Nicoderm Cq) 1 patch TD DAILY [facility] Last Admin: 01/05/18 11:42 Dose: 1 patch Oxycodone/Acetaminophen (Percocet 5/325 Mg Tab) 1 tab PO Q4H PRN PRN Reason: Pain, severe (8-10) Stop: 01/06/18 19:46 Last Admin: 01/05/18 23:44 Dose: 1 tab Tiotropium [place] (Spiriva) 18 mcg INH RQ24 [facility] Last Admin: 01/05/18 07:50 Dose: 18 mcg - Labs Labs: 01/05/18 13:53 01/05/18 13:53 PT 12.7 SECONDS (9.7-12.2) H 01/02/18 08:22 INR 1.2 01/02/18 08:22 APTT 28 SECONDS (21-34) 01/02/18 08:22
[2018-01-06] MEDS: (Novolin R) Insulin Human Regular 100 units/ml vial SC SCH (07:30)
[2018-01-06 08:19] LABS: BASO # 0.1 K/uL (0.0-0.2); BASO % 0.4 % (0.0-2.0); EOS % 0.1 % (0.0-4.0); HEMOGLOBIN 10.6 g/dL (11.0-16.0); LYMPH # 1.1 K/uL (1.0-4.3); LYMPH % 7.7 % (20.0-40.0); MEAN CELL VOLUME 71.3 fL (81.0-99.0); MEAN CORPUSCULAR HEMOGLOBIN 22.7 pg (27.0-31.0); MEAN CORPUSCULAR HGB CONC 31.8 g/dL (33.0-37.0); MONO # 0.4 K/uL (0.0-0.8); MONO % 2.8 % (0.0-10.0); NEUT # 13.2 K/uL (1.8-7.0); NRBC % 0.1 % (0.0-2.0); PLATELET COUNT 271 K/uL (130-400); RBC 4.67 Mil/uL (3.80-5.20); RED CELL DISTRIBUTION WIDTH 20.8 % (11.5-14.5); WHITE BLOOD COUNT 14.9 K/uL (4.8-10.8)
[2018-01-06] MEDS: Fluticasone-Vilanterol 200/25mcg Diskus INH SCH (08:35)
[2018-01-06] MEDS: Tiotropium 18 mcg Cap For Inhalation INH SCH (08:35)
[2018-01-06 08:39] LABS: ALBUMIN 3.2 g/dL (3.5-5.0); ALT/SGPT 53 U/L (9-52); AST/SGOT 38 U/L (14-36); BLOOD UREA NITROGEN 26 mg/dL (7-17); CALCIUM 8.5 mg/dl (8.6-10.4); GFR NON-AFRICAN AMERICAN > 60
[2018-01-06 09:06] VITALS: BP 129/59; PULSE 93
[2018-01-06 09:34] LABS: ANISOCYTOSIS MODERATE; BANDS 1 % (0-2); LYMPHOCYTE 7 % (20-40); MONOCYTE 2 % (0-10); NEUTROPHIL 90 % (50-75); PLATELET ESTIMATE NORMAL (NORMAL); POIKILOCYTOSIS SLIGHT; TOTAL CELLS COUNTED 100
[2018-01-06 09:35] LABS: HYPOCHROMIC MODERATE; LARGE PLATELETS PRESENT; MICROCYTOSIS SLIGHT; OVALOCYTES SLIGHT; POLYCHROMIC SLIGHT; SCHISTOCYTES SLIGHT
[2018-01-06 09:36] LABS: GIANT PLATELETS PRESENT; TOXIC GRANULATION PRESENT
[2018-01-06] MEDS: MethylPREDNISolone 40 mg Vial IV SCH (10:37)
--- NOTE | 2018-01-06 11:00 | CP.PCM.PN ---
Subjective - Date & Time of Evaluation Date of Evaluation: 01/05/18 Time of Evaluation: 17:10 - Subjective Subjective: Patient seen and evaluated Denies chest pain and dyspnea Physical examination - Head Exam Head Exam: ATRAUMATIC, NORMOCEPHALIC - ENT Exam ENT Exam: Mucous Membranes Moist - Neck Exam Neck Exam: Normal Inspection - Respiratory Exam Respiratory Exam: Decreased Breath Sounds - Cardiovascular Exam Cardiovascular Exam: REGULAR RHYTHM - GI/Abdominal Exam GI & Abdominal Exam: Soft, Normal Bowel Sounds - Extremities Exam Extremities Exam: Normal Inspection - Neurological Exam Neurological Exam: Alert Assessment and Plan (1) COPD exacerbation Assessment & Plan: taper steroids Nebulizer treatment LAMA/LABA Status: Acute (2) Lung nodule Assessment & Plan: Spiculated nodule left upper lobe with long history of smoking IR for biopsy Thoracic consult Pulmonary function test Status: Acute ECHO: Normal EF ProBNP Normal Objective - Vital Signs/Intake and Output Vital Signs (last 24 hours): Temp Pulse Resp BP Pulse Ox 97.9 F 93 H 20 129/59 L 95 01/06/18 09:04 01/06/18 09:04 01/06/18 09:04 01/06/18 09:04 01/06/18 09:04 - Medications Medications: Current Medications Acetaminophen (Tylenol 325mg Tab) 650 mg PO Q6 PRN PRN Reason: Pain, moderate (4-7) Last Admin: 12/30/17 19:34 Dose: 650 mg Al Hydrox/Mg Hydrox/Simethicone (Maalox Plus 30 Ml) 15 ml PO TID PRN PRN Reason: Indigestion / Heartburn Last Admin: 01/05/18 18:35 Dose: 15 ml Albuterol (Ventolin Hfa 90 Mcg/Actuation (8 G)) 2 puff IH RQ6 PRN PRN Reason: Wheezing Last Admin: 12/31/17 08:00 Dose: 2 inhaler Albuterol Sulfate (Albuterol 0.083% Inhal Kaylynn (2.5 Mg/3 Ml) Ud) 2.5 mg IH RQ6 ANUJA Last Admin: 01/06/18 01:37 Dose: Not Given Amlodipine Besylate (Norvasc) 5 mg PO DAILY [facility] Last Admin: 01/06/18 09:52 Dose: 5 mg Aspirin (Ecotrin) 81 mg PO DAILY [facility] Last Admin: 01/01/18 11:20 Dose: 81 mg Enoxaparin Sodium (Lovenox) 40 mg SC DAILY [facility] Last Admin: 01/01/18 11:20 Dose: 40 mg Fluticasone/Vilanterol (Breo Ellipta 200-25 Mcg Inh) 1 puff INH RQ24 [facility] Last Admin: 01/05/18 07:50 Dose: 1 puff Glimepiride (Amaryl) 2 mg PO DAILY [facility] Last Admin: 01/06/18 09:52 Dose: 2 mg Insulin Human Regular (Novolin R) 0 unit SC [facility]; Protocol Last Admin: 01/05/18 21:51 Dose: Not Given Methylprednisolone (Solu-Medrol) 40 mg IV Q12 [facility] Last Admin: 01/06/18 10:37 Dose: 40 mg Moxifloxacin HCl (Avelox) 400 mg PO DAILY [facility]; Protocol Last Admin: 01/06/18 09:52 Dose: 400 mg Nicotine (Nicoderm Cq) 1 patch TD DAILY [facility] Last Admin: 01/06/18 09:54 Dose: 1 patch Oxycodone/Acetaminophen (Percocet 5/325 Mg Tab) 1 tab PO Q4H PRN PRN Reason: Pain, severe (8-10) Stop: 01/06/18 19:46 Last Admin: 01/05/18 23:44 Dose: 1 tab Tiotropium Myra (Spiriva) 18 mcg INH RQ24 [facility] Last Admin: 01/05/18 07:50 Dose: 18 mcg - Labs Labs: 01/06/18 08:11 01/06/18 08:11 PT 12.7 SECONDS (9.7-12.2) H 01/02/18 08:22 INR 1.2 01/02/18 08:22 APTT 28 SECONDS (21-34) 01/02/18 08:22
--- NOTE | 2018-01-06 17:46 | CP.PCM.PN ---
Subjective - Date & Time of Evaluation Date of Evaluation: 01/06/18 Time of Evaluation: 10:00 - Subjective Subjective: alert, oriented, no sob or chest pains, NAD. Objective - Vital Signs/Intake and Output Vital Signs (last 24 hours): Temp Pulse Resp BP Pulse Ox 97.9 F 93 H 20 129/59 L 95 01/06/18 09:04 01/06/18 09:04 01/06/18 09:04 01/06/18 09:04 01/06/18 09:04 - Labs Labs: 01/06/18 08:11 01/06/18 08:11 PT 12.7 SECONDS (9.7-12.2) H 01/02/18 08:22 INR 1.2 01/02/18 08:22 APTT 28 SECONDS (21-34) 01/02/18 08:22 Assessment and Plan - Assessment and Plan (Free Text) Assessment: 67 year old female admitted with COPD exacerbation, seen and examined. No sob or wheezing noted, cleared by DR Bazan. Discussed with DR Gallo, plan to discharge home with tapering prednisone today. Advised to follow up with PMD in 1 week.
--- NOTE | 2018-01-06 23:31 | CP.PCM.DIS ---
Provider - Provider Date of Admission: 01/01/18 16:57 Attending physician: David Gallo MD Hospital Course - Lab Results Lab Results: Micro Results 12/29/17 14:17 Urine Urine Culture - Final <10,000 CFU/ML. MULTIPLE SPECIES. PROBABLE CONTAMINATION. Most Recent Lab Values WBC 14.9 K/uL (4.8-10.8) H 01/06/18 08:11 RBC 4.67 Mil/uL (3.80-5.20) 01/06/18 08:11 Hgb 10.6 g/dL (11.0-16.0) L 01/06/18 08:11 Hct 33.3 % (34.0-47.0) L 01/06/18 08:11 MCV 71.3 fL (81.0-99.0) L 01/06/18 08:11 MCH 22.7 pg (27.0-31.0) L 01/06/18 08:11 MCHC 31.8 g/dL (33.0-37.0) L 01/06/18 08:11 RDW 20.8 % (11.5-14.5) H 01/06/18 08:11 Plt Count 271 K/uL (130-400) 01/06/18 08:11 MPV 8.0 fL (7.2-11.7) 01/06/18 08:11 Neut % (Auto) 89.0 % (50.0-75.0) H 01/06/18 08:11 Lymph % (Auto) 7.7 % (20.0-40.0) L 01/06/18 08:11 Vance % (Auto) 2.8 % (0.0-10.0) 01/06/18 08:11 Eos % (Auto) 0.1 % (0.0-4.0) 01/06/18 08:11 Baso % (Auto) 0.4 % (0.0-2.0) 01/06/18 08:11 Neut # (Auto) 13.2 K/uL (1.8-7.0) H 01/06/18 08:11 Lymph # (Auto) 1.1 K/uL (1.0-4.3) 01/06/18 08:11 Vance # (Auto) 0.4 K/uL (0.0-0.8) 01/06/18 08:11 Eos # (Auto) 0.0 K/uL (0.0-0.7) 01/06/18 08:11 Baso # (Auto) 0.1 K/uL (0.0-0.2) 01/06/18 08:11 Neutrophils % (Manual) 90 % (50-75) H 01/06/18 08:11 Band Neutrophils % 1 % (0-2) 01/06/18 08:11 Lymphocytes % (Manual) 7 % (20-40) L 01/06/18 08:11 Monocytes % (Manual) 2 % (0-10) 01/06/18 08:11 Toxic Granulation Present 01/06/18 08:11 Platelet Estimate Normal (NORMAL) 01/06/18 08:11 Large Platelets Present 01/06/18 08:11 Giant Platelets Present 01/06/18 08:11 Polychromasia Slight 01/06/18 08:11 Hypochromasia (manual) Moderate 01/06/18 08:11 Poikilocytosis (manual Slight 01/06/18 08:11 Anisocytosis (manual) Moderate 01/06/18 08:11 Microcytosis (manual) Slight 01/06/18 08:11 Ovalocytes Slight 01/06/18 08:11 Schistocytes Slight 01/06/18 08:11 PT 12.7 SECONDS (9.7-12.2) H 01/02/18 08:22 INR 1.2 01/02/18 08:22 APTT 28 SECONDS (21-34) 01/02/18 08:22 Sodium 141 mmol/L (132-148) 01/06/18 08:11 Potassium 4.4 mmol/L (3.6-5.2) 01/06/18 08:11 Chloride 107 mmol/L (98-107) 01/06/18 08:11 Carbon Dioxide 23 mmol/L (22-30) 01/06/18 08:11 Anion Gap 16 (10-20) 01/06/18 08:11 BUN 26 mg/dL (7-17) H 01/06/18 08:11 Creatinine 0.7 mg/dL (0.7-1.2) 01/06/18 08:11 Est GFR ( Amer) > 60 01/06/18 08:11 Est GFR (Non-Af Amer) > 60 01/06/18 08:11 POC Glucose (mg/dL) 148 mg/dL (65-110) H 01/06/18 07:04 Random Glucose 156 mg/dL (65-105) H 01/06/18 08:11 Calcium 8.5 mg/dl (8.6-10.4) L 01/06/18 08:11 Phosphorus 3.5 mg/dL (2.5-4.5) 01/05/18 13:53 Magnesium 2.2 mg/dL (1.6-2.3) 01/05/18 13:53 Total Bilirubin 0.7 mg/dL (0.2-1.3) 01/06/18 08:11 AST 38 U/L (14-36) H 01/06/18 08:11 ALT 53 U/L (9-52) H 01/06/18 08:11 Alkaline Phosphatase 108 U/L (38-126) 01/06/18 08:11 Total Creatine Kinase 113 U/L (30-135) 12/29/17 12:40 CK-MB (Mass) 1.92 ng/mL (0.0-3.38) 12/29/17 12:40 Troponin I < 0.0120 ng/mL (0.00-0.120) 12/29/17 12:40 NT-Pro-B Natriuret Pep 36.7 pg/mL (0-900) 12/29/17 12:40 Total Protein 6.4 g/dL (6.3-8.3) 01/06/18 08:11 Albumin 3.2 g/dL (3.5-5.0) L 01/06/18 08:11 Globulin 3.2 gm/dL (2.2-3.9) 01/06/18 08:11 Albumin/Globulin Ratio 1.0 (1.0-2.1) 01/06/18 08:11 Urine Color Yellow (YELLOW) 12/29/17 12:43 Urine Clarity Clear (Clear) 12/29/17 12:43 Urine pH 8.0 (5.0-8.0) 12/29/17 12:43 Ur Specific [place] 1.010 (1.003-1.030) 12/29/17 12:43 Urine Protein Negative mg/dL (NEGATIVE) 12/29/17 12:43 Urine Glucose (UA) Normal mg/dL (Normal) 12/29/17 12:43 Urine Ketones Negative mg/dL (NEGATIVE) 12/29/17 12:43 Urine Blood Negative (NEGATIVE) 12/29/17 12:43 Urine Nitrate Negative (NEGATIVE) 12/29/17 12:43 Urine Bilirubin Negative (NEGATIVE) 12/29/17 12:43 Urine Urobilinogen Normal mg/dL (0.2-1.0) 12/29/17 12:43 Ur Leukocyte Esterase 1+ Matthias/uL (Negative) H 12/29/17 12:43 Urine WBC (Auto) 9 /hpf (0-5) H 12/29/17 12:43 Urine RBC (Auto) 1 /hpf (0-3) 12/29/17 12:43 Urine Bacteria Rare (<OCC) 12/29/17 12:43 Discharge Exam - Head Exam Head Exam: ATRAUMATIC, NORMOCEPHALIC Discharge Plan - Discharge Medications Prescriptions: predniSONE [Prednisone] 10 mg PO DAILY #10 tab - Follow Up Plan Condition: GOOD Disposition: HOME/ ROUTINE Instructions: Heart Healthy Diet, Diabetes Diet , Exacerbation of COPD (DC), Pulmonary Nodule, Diabetes and Diet Additional Instructions: PLEASE TAKE YOUR MEDICATIONS ORDERED BY YOUR DOCTOR PLEASE CALL FOR APPOINTMENT TO SEE DR. GALLO IN HIS OFFICE A WEEK AFTER LEAVING THE HOSPITAL.
--- NOTE | 2018-01-07 04:14 | DS ---
ADMISSION DIAGNOSIS: Exacerbation of chronic obstructive pulmonary disease. DISCHARGE DIAGNOSES: Exacerbation of chronic obstructive pulmonary disease; lung nodule, pending biopsy; tracheobronchitis; steroid-induced diabetes. HISTORY OF PRESENT ILLNESS: This is a 67-year-old female with history of COPD, recurrent hospitalization, came in because of cough, congestion, shortness of breath, wheezing, chills. She was found to have COPD. She was started on Solu-Medrol, oxygen, nebulizer treatment, found to have a lung nodule, and the patient underwent the CT-guided biopsy of the lung nodule pending pathology. The patient is feeling better. Post biopsy, she developed pneumothorax which resolved by itself. She is feeling better. She is being discharged. PHYSICAL EXAMINATION: VITAL SIGNS: Blood pressure 129/59, pulse 93, respiratory rate 20, and temperature 97.9. LUNGS: Clear. Decreased air entry. CARDIOVASCULAR SYSTEM: S1, S2 regular. ABDOMEN: Soft. LABORATORY DATA: WBC 14.9, hemoglobin 10.6, hematocrit 33.6, platelets 271. Sodium 141, potassium 4.4, , bicarb 23, BUN 26, creatinine 0.7. PLAN: Discharge the patient. David Gallo MD
[2018-01-07 16:50] VITALS: O2SAT 100
== END 2018-01-06 12:11 | disposition home or self-care (01) | DRG 192 ==
LOC: C.ER 11:25 → C.6T 13:31 → OBSVTOIN 01-01 16:57
PROVIDERS: ADMIT Internal Medicine; ATTEND Internal Medicine
PROC: 0BBG3ZX Excision of Left Upper Lung Lobe, Percutaneous Approach, Diagnostic (ICD-10-PCS; principal; 2018-01-03)
DX: J44.1 Chronic obstructive pulmonary disease with (acute) exacerbation (principal); G40.909 Epilepsy, unspecified, not intractable, without status epilepticus; E11.9 Type 2 diabetes mellitus without complications; F17.200 Nicotine dependence, unspecified, uncomplicated; M54.2 Cervicalgia; I10 Essential (primary) hypertension; J20.9 Acute bronchitis, unspecified; J44.0 Chronic obstructive pulmonary disease with (acute) lower respiratory infection; R91.1 Solitary pulmonary nodule; Z85.3 Personal history of malignant neoplasm of breast; M19.90 Unspecified osteoarthritis, unspecified site; T38.0X5A Adverse effect of glucocorticoids and synthetic analogues, initial encounter; Z87.01 Personal history of pneumonia (recurrent); G89.29 Other chronic pain; Z87.442 Personal history of urinary calculi; Z90.49 Acquired absence of other specified parts of digestive tract

== ENCOUNTER 2018-05-31 14:20 | Emergency (ER) | payer MEDICARE, MEDICAID ==
[2018-05-31] MEDS ORDERED: Sodium Chloride 0.9% 1,000 ML IV SCH (15:15)
[2018-05-31 15:22] LABS: BASO % 0.6 % (0.0-2.0); EOS # 0.2 K/uL (0.0-0.7); EOS % 2.3 % (0.0-4.0); HEMOGLOBIN 10.9 g/dL (11.0-16.0); LYMPH # 2.1 K/uL (1.0-4.3); LYMPH % 31.8 % (20.0-40.0); MEAN CORPUSCULAR HEMOGLOBIN 23.1 pg (27.0-31.0); MEAN CORPUSCULAR HGB CONC 31.6 g/dL (33.0-37.0); MEAN PLATELET VOLUME 9.3 fL (7.2-11.7); MONO # 0.9 K/uL (0.0-0.8); MONO % 14.1 % (0.0-10.0); NEUT # 3.4 K/uL (1.8-7.0); NEUT % 51.2 % (50.0-75.0); RBC 4.73 Mil/uL (3.80-5.20); RED CELL DISTRIBUTION WIDTH 20.1 % (11.5-14.5)
[2018-05-31 15:26] LABS: WHITE BLOOD COUNT 6.7 K/uL (4.8-10.8)
[2018-05-31 15:40] LABS: ALB/GLOB RATIO 1.3 (1.0-2.1); ALBUMIN 4.1 g/dL (3.5-5.0); ALT/SGPT 14 U/L (9-52); AST/SGOT 39 U/L (14-36); BLOOD UREA NITROGEN 16 mg/dL (7-17); CALCIUM 9.5 mg/dl (8.6-10.4); GFR NON-AFRICAN AMERICAN > 60; LIPASE 159 U/L (23-300)
[2018-05-31] MEDS ORDERED: Sodium Chloride 0.9% 1,000 ML ONE (16:28)
[2018-05-31] MEDS ORDERED: Iohexol 350mg/ml 100 ML ONE (16:31)
[2018-05-31 16:49] VITALS: TEMP 98
[2018-05-31 17:44] LABS: SQUAMOUS EPITHIAL 6 /hpf (0-5); URINE BILIRUBIN NEGATIVE (NEGATIVE); URINE BLOOD NEGATIVE (NEGATIVE); URINE CALCIUM OXALATE CRYSTALS MANY /hpf (<OCC); URINE CLARITY Hazy (Clear); URINE COLOR Yellow (YELLOW); URINE GLUCOSE (UA) NORMAL (Normal); URINE LEUKOCYTE ESTERASE NEG Leu/uL (Negative); URINE PROTEIN NEGATIVE (NEGATIVE)
--- NOTE | 2018-05-31 18:20 | CT ---
Date of service: 05/31/2018 PROCEDURE: CT Abdomen and Pelvis with contrast HISTORY: right-sided abdominal pain COMPARISON: None. TECHNIQUE: Intravenous contrast dose: 100 cc Omnipaque 350. Radiation dose: Total exam DLP = 453.40 mGy-cm. This CT exam was performed using one or more of the following dose reduction techniques: Automated exposure control, adjustment of the mA and/or kV according to patient size, and/or use of iterative reconstruction technique. FINDINGS: LOWER THORAX: Unremarkable. LIVER: Cirrhotic appearing liver. No focal hepatic masses identified. Patent portal vein and venous system as visualized. GALLBLADDER AND BILE DUCTS: Status post cholecystectomy. No abnormality is seen in the gallbladder fossa. PANCREAS: Unremarkable. No gross lesion or ductal dilatation. SPLEEN: Unremarkable. ADRENALS: Unremarkable. No mass. KIDNEYS AND URETERS: Unremarkable. No hydronephrosis. No solid mass. VASCULATURE: Unremarkable. No aortic aneurysm. Atherosclerotic calcification and mural plaque present. Findings are seen throughout the aorta which is non aneurysmal. Calcifications extend into iliac vessels. BOWEL: Diverticulosis without an acute inflammatory component or other associated pathologic process. APPENDIX: A normal appendix is visualized in it's entirety. PERITONEUM: Unremarkable. No free fluid. No free air. LYMPH NODES: Unremarkable. No enlarged lymph nodes. BLADDER: Unremarkable. REPRODUCTIVE: Anteverted uterus. Cystic mass right hemipelvis measures 2.6 x 2.9 cm. This is adjacent to external and internal iliac vessels. This is likely an incidental finding. BONES: No acute fracture. OTHER FINDINGS: None. IMPRESSION: No acute findings related to/ accounting for the clinical presentation. Cystic mass right hemipelvis. Elective ultrasound recommended to exclude adnexal origin. Additional benign and/or incidental findings described above.
[2018-05-31 18:34] VITALS: BP 136/70; PULSE 85; RESP 20; O2SAT 96
--- NOTE | 2018-05-31 18:50 | C.PDOC ---
History Of Present Illness 67 year old female presents to ED with complaint of decreased appetite and generalized weakness for several days. Patient denies vomiting, nausea, bloody stool, blood in the urine, and abdominal pain. Chief Complaint (Nursing): Dizziness/Lightheaded History Per: Patient History/Exam Limitations: no limitations Onset/Duration Of Symptoms: Days Current Symptoms Are (Timing): Still Present Past Medical History Reviewed: Historical Data, Nursing Documentation, Vital Signs Vital Signs: Last Vital Signs Temp 98 F 05/31/18 16:47 Pulse 85 05/31/18 18:33 Resp 20 05/31/18 18:33 BP 136/70 05/31/18 18:33 Pulse Ox 96 05/31/18 18:33 - Medical History PMH: Arthritis, Asthma, Bronchitis, COPD, Diabetes, HTN, Pneumonia, Seizures (about 20 yrs. ago) Denies: HIV, Chronic Kidney Disease Surgical History: Appendectomy, Cholecystectomy - [facility] Procedures BUNIONECTOMY NEC (09/23/14) EXCISION OF LEFT UPPER LUNG LOBE, PERC APPROACH, DIAGN (01/01/18) INJECT STEROID (09/23/14) PARTIAL OSTECTOMY NEC (09/23/14) PER NERVE ADHESIOLYS NEC (09/23/14) Family History: States: Unknown Family Hx - Social History Hx Tobacco Use: Yes Hx Alcohol Use: No Hx Substance Use: No - Immunization History Hx Influenza Vaccination: Yes Hx Pneumococcal Vaccination: Yes Review Of Systems Constitutional: Positive for: Weakness (generalized), Other (decreased appetite) Gastrointestinal: Negative for: Vomiting, Abdominal Pain, Hematochezia Genitourinary: Negative for: Hematuria Physical Exam - Physical Exam Appears: Non-toxic, No Acute Distress Skin: Normal Color, Warm, Dry Head: Atraumatic, Normacephalic Neck: Normal ROM, Supple Chest: Symmetrical, No Deformity Cardiovascular: Rhythm Regular, No Murmur Respiratory: No Accessory Muscle Use, No Rales, No Rhonchi, No Wheezing Gastrointestinal/Abdominal: Soft, No Tenderness Extremity: Capillary Refill (<2 seconds) Neurological/Psych: Oriented x3, Normal Speech, Normal Cognition ED Course And Treatment - Laboratory Results Result Diagrams: 05/31/18 15:18 05/31/18 15:18 Lab Results: APTT 35 SECONDS (21-34) H 05/31/18 15:18 Troponin I < 0.0120 ng/mL (0.00-0.120) 05/31/18 15:18 Total Bilirubin 0.4 mg/dL (0.2-1.3) 05/31/18 15:18 AST 39 U/L (14-36) H 05/31/18 15:18 ALT 14 U/L (9-52) 05/31/18 15:18 Alkaline Phosphatase 112 U/L (38-126) 05/31/18 15:18 Total Protein 7.3 g/dL (6.3-8.3) 05/31/18 15:18 Albumin 4.1 g/dL (3.5-5.0) 05/31/18 15:18 Globulin 3.2 gm/dL (2.2-3.9) 05/31/18 15:18 Albumin/Globulin Ratio 1.3 (1.0-2.1) 05/31/18 15:18 Lipase 159 U/L (23-300) 05/31/18 15:18 Urine Color Yellow (YELLOW) 05/31/18 17:35 Urine Clarity Hazy (Clear) 05/31/18 17:35 Urine pH 6.0 (5.0-8.0) 05/31/18 17:35 Ur Specific Angela 1.021 (1.003-1.030) 05/31/18 17:35 Urine Protein Negative mg/dL (NEGATIVE) 05/31/18 17:35 Urine Glucose (UA) Normal mg/dL (Normal) 05/31/18 17:35 Urine Ketones Negative mg/dL (NEGATIVE) 05/31/18 17:35 Urine Blood Negative (NEGATIVE) 05/31/18 17:35 Urine Nitrate Negative (NEGATIVE) 05/31/18 17:35 Urine Bilirubin Negative (NEGATIVE) 05/31/18 17:35 Urine Urobilinogen 4.0 mg/dL (0.2-1.0) H 05/31/18 17:35 Ur Leukocyte Esterase Neg Matthias/uL (Negative) 05/31/18 17:35 Urine WBC (Auto) 2 /hpf (0-5) 05/31/18 17:35 Urine RBC (Auto) 2 /hpf (0-3) 05/31/18 17:35 Ur Squamous Epith Cells 6 /hpf (0-5) H 05/31/18 17:35 Calcium Oxalate Crystal Many /hpf (<OCC) H 05/31/18 17:35 Hyaline Casts 3-5 /lpf (0-2) H 05/31/18 17:35 ECG: Interpreted By Me, Viewed By Me ECG Rhythm: Sinus Rhythm ECG Interpretation: Normal Rate From EC O2 Sat by Pulse Oximetry: 96 (in RA) - CT Scan/US Abdomen/Pelvis CT Other Rad Studies (CT/US): Interpreted By Me, Read By Radiologist CT/US Interpretation: IMPRESSION: No acute findings related to/ accounting for the clinical presentation. Cystic mass right hemipelvis. Elective ultrasound recommended to exclude adnexal origin. Additional benign and/or incidental findings described above. Medical Decision Making Medical Decision Making: Impression: 67 year old female presents to ED with complaint of decreased appetite and generalized weakness for several days Plan: Abdomen/Pelvis CT and EKG Labs ordered with CMP, CBC, urine culture, and UA Patient given pepcid, IV fluids, and zofran Disposition - [facility] - Disposition: HOME/ ROUTINE Disposition Time: 18:15 Condition: IMPROVED Additional Instructions: TOMI TEMPLE, thank you for letting us take care of you today. The emergency medical care you received today was directed at your acute symptoms. If you were prescribed any medication, please fill it and take as directed. It may take several days for your symptoms to resolve. Return to the Emergency Department if your symptoms worsen, do not improve, or if you have any other problems. Please contact your doctor or call one of the physicians/clinics you have been referred to that are listed on the Patient Visit Information form that is included in your discharge packet. Bring any paperwork you were given at discharge with you along with any medications you are taking to your follow up visit. Our treatment cannot replace ongoing medical care by a primary care provider outside of the emergency department. Thank you for allowing the [facility] team to be part of your care today. Follow up with your primary care doctor in 2-3 days for re-evaluation and further management. Prescriptions: Famotidine [Pepcid] 20 mg PO BID #14 tab Instructions: Acute Abdomen (Belly Pain), Adult (DC) Forms: [employer] (Japanese) - Clinical Impression Clinical Impression: Dehydration - Scribe Statement The provider has reviewed the documentation as recorded by the Scribe (Marlyn Post) All medical record entries made by the Reginald were at my direction and personally dictated by me. I have reviewed the chart and agree that the record accurately reflects my personal performance of the history, physical exam, medical decision making, and the department course for this patient. I have also personally directed, reviewed, and agree with the discharge instructions and disposition.
--- NOTE | 2018-06-01 10:51 | CARD ---
APPROVED REPORT Date of service: 05/31/2018 EKG Measurement Heart [id number] <Conclusion> Normal sinus rhythm Rightward axis Septal infarct, age undetermined Abnormal ECG
== END 2018-05-31 18:34 | disposition home or self-care (01) ==
LOC: C.ER 14:20
DX: E86.0 Dehydration (principal); I10 Essential (primary) hypertension; E11.9 Type 2 diabetes mellitus without complications; J44.9 Chronic obstructive pulmonary disease, unspecified; Z72.0 Tobacco use
CPT/HCPCS: 74177; 80053; 81001; 82948; 83690; 84484; 85025; 85730; 87086; 93005; 96374; 96375; 99285; J2405; J7030; Q9967

== ENCOUNTER 2018-06-01 12:33 | Emergency (ER) | payer MEDICARE, MEDICAID ==
[2018-06-01 12:45] VITALS: O2SAT 94; BMI 26.2
--- NOTE | 2018-06-01 14:21 | CT ---
Date of service: 06/01/2018 PROCEDURE: CT HEAD WITHOUT CONTRAST. HISTORY: vertigo x 1 yr, worse x 4 days COMPARISON: None available. TECHNIQUE: Axial computed tomography images were obtained through the head/brain without intravenous contrast. Radiation dose: Total exam DLP = 1031.45 mGy-cm. This CT exam was performed using one or more of the following dose reduction techniques: Automated exposure control, adjustment of the mA and/or kV according to patient size, and/or use of iterative reconstruction technique. FINDINGS: HEMORRHAGE: No intracranial hemorrhage. BRAIN: Ibarra-white matter differentiation is preserved. There is a 9 x 6 mm left frontal parasagittal extra-axial calcified lesion without evidence for mass effect or midline shift. There is no abnormal extra-axial fluid collection. There is no territorial infarction. The midline sagittal structures are normal. VENTRICLES: The ventricles are normal in size, shape and configuration. CALVARIUM: There is no calvarial fracture or extracranial soft tissue swelling. PARANASAL SINUSES: Predominantly clear. MASTOID AIR CELLS: Predominantly clear. OTHER FINDINGS: None. IMPRESSION: No acute intracranial abnormality. 9 x 6 mm left frontal parasagittal calcified lesions statistically most compatible with calcified meningioma. No evidence mass effect or midline shift
--- NOTE | 2018-06-01 14:47 | C.PDOC ---
History Of Present Illness Patient is a 67 year old female who presents to the ED c/o mild dizziness that has been present for the past year. Patient reports that the dizziness is worse when she bends over and is better when she stands still. Patient has never been dx with benign position of vertigo. She states that the dizziness has been present multiple times throughout the day. Patient reports that she takes Tramadol daily for coccyx pain that resulted from a fall 40 years ago. Patient seen sitting "bulgarian style" grinding coccyx into mattress, completely pain free. Patient was asked if dizziness is temporarily related to Tramadol doses but was unable to get a clear answer. Patient denies any CP, SOB, fever. Time Seen by Provider: 06/01/18 13:01 Chief Complaint (Nursing): Flu-like Symptoms History Per: Patient History/Exam Limitations: no limitations Onset/Duration Of Symptoms: Hrs Recent travel outside of the [place]: No Additional History Per: Patient Past Medical History Reviewed: Historical Data, Nursing Documentation, Vital Signs Vital Signs: Last Vital Signs Temp 97.9 F 06/01/18 12:40 Pulse 75 06/01/18 12:40 Resp 18 06/01/18 12:40 BP 125/71 06/01/18 12:40 Pulse Ox 94 L 06/01/18 12:40 - Medical History PMH: Arthritis, Asthma, Bronchitis, COPD, Diabetes, HTN, Pneumonia, Seizures (about 20 yrs. ago) Denies: HIV, Chronic Kidney Disease Surgical History: Appendectomy, Cholecystectomy - [facility] Procedures BUNIONECTOMY NEC (09/23/14) EXCISION OF LEFT UPPER LUNG LOBE, PERC APPROACH, DIAGN (01/01/18) INJECT STEROID (09/23/14) PARTIAL OSTECTOMY NEC (09/23/14) PER NERVE ADHESIOLYS NEC (09/23/14) Family History: States: Unknown Family Hx - Social History Hx Tobacco Use: Yes Hx Alcohol Use: No Hx Substance Use: No - Immunization History Hx Influenza Vaccination: Yes Hx Pneumococcal Vaccination: Yes Review Of Systems Constitutional: Negative for: Fever Cardiovascular: Negative for: Chest Pain Respiratory: Negative for: Shortness of Breath Musculoskeletal: Positive for: Back Pain (coccyx pain) Neurological: Positive for: Dizziness Physical Exam - Physical Exam Appears: Non-toxic, No Acute Distress, Other (elderly female, argumentative) Skin: Warm, Dry Head: Atraumatic, Normacephalic Ear(s): Bilateral: Normal Nose: Other (nasal passages mildly erythematous ) Oral Mucosa: Moist Throat: Normal Neck: Supple Chest: Symmetrical, No Deformity Cardiovascular: Rhythm Regular, No Murmur Respiratory: No Rales, No Rhonchi, Wheezing (mild scattered wheezing ) Gastrointestinal/Abdominal: Soft, No Tenderness Back: Other (no coccygeal tenderness by evidence of sitting position bulgarian style) Neurological/Psych: Oriented x3, Other (no provoked vertigo with head change position) ED Course And Treatment O2 Sat by Pulse Oximetry: 94 (on RA) Pulse Ox Interpretation: Normal - CT Scan/US CT Head Other Rad Studies (CT/US): Read By Radiologist, Radiology Report Reviewed CT/US Interpretation: IMPRESSION: No acute intracranial abnormality. 9 x 6 mm left frontal parasagittal calcified lesions statistically most compatible with calcified meningioma. No evidence mass effect or midline shift Medical Decision Making Medical Decision Making: Plan: Motrin 400mg PO Antivert 50mg PO CAT Head normal workup yesterday, not repeated today head CT neg s/s of BPV x 1 yr, worse past 4 days, but benign presentation in ED s/s improved with ED tx- meclizine/motrin d/w Dr. Bazan- her Pulm ok to d/c home opt f/u. ? taking Tramadol for chronic coccyx pain (fell when 40 yrs ago) Explained the narcotics in the elderly contraindicated and may be provoking her dizziness and a significant falls risk. poor insight. Disposition Doctor Will See Patient In The: Office Counseled Patient/Family Regarding: Studies Performed, Diagnosis - Disposition Referrals: Rajendra Bazan MD [Staff Provider] - Megan Salazar MD [Staff Provider] - Disposition: HOME/ ROUTINE Disposition Time: 14:47 Condition: GOOD Additional Instructions: Benign Positional Vertigo Head CT negative today Meclizine/Antivert 25 mg every 6-8 hours as needed for vertigo symptoms Always take with Motrin/Advil 400 mg Works better together outpatient follow-up with your PMD/Neurologist as needed Neuro superintendent car construction: Dr. Salazar- call for appt as needed. Prescriptions: Meclizine [Meclizine*] 25 mg PO Q6 PRN #30 tab PRN Reason: vertigo Instructions: Vertigo (a Type of Dizziness) (DC) Forms: [employer] (Spanish) - Clinical Impression Clinical Impression: Vertigo - Scribe Statement The provider has reviewed the documentation as recorded by the Keanuibshorty Brooks All medical record entries made by the Keanuibe were at my direction and personally dictated by me. I have reviewed the chart and agree that the record accurately reflects my personal performance of the history, physical exam, medical decision making, and the department course for this patient. I have also personally directed, reviewed, and agree with the discharge instructions and disposition.
[2018-06-01 14:59] VITALS: BP 142/67; PULSE 80; RESP 15; TEMP 98
== END 2018-06-01 15:25 | disposition home or self-care (01) ==
LOC: C.ER 12:33
DX: R42 Dizziness and giddiness (principal)

== ENCOUNTER 2018-06-04 22:27 | Observation (INO) | payer MEDICARE, MEDICAID ==
[2018-06-04 22:27] VITALS: BMI 26.2
--- NOTE | 2018-06-04 22:52 | C.PDOC ---
History Of Present Illness Patient presents with SOB and generalized body aches for the past few years. Patient states tonight she was watching a movies when she felt SOB and became very anxious. She still smokes daily, speaking in 3-4 word sentences. Denies fever, chills, nausea, or vomiting. Time Seen by Provider: 06/04/18 22:52 History Per: Patient History/Exam Limitations: no limitations Onset/Duration Of Symptoms: Days Current Symptoms Are (Timing): Still Present Current Respiratory Medications: See Home Med List Severity: Moderate Pain Scale Rating Of: 4 Associated Symptoms: denies: Fever, Chills Recent travel outside of the [place]: No Past Medical History Reviewed: Historical Data, Nursing Documentation, Vital Signs - Medical History PMH: Arthritis, Asthma, Bronchitis, COPD, Diabetes, HTN, Pneumonia, Seizures (about 20 yrs. ago) Denies: HIV, Chronic Kidney Disease Surgical History: Appendectomy, Cholecystectomy - [facility] Procedures BUNIONECTOMY NEC (09/23/14) EXCISION OF LEFT UPPER LUNG LOBE, PERC APPROACH, DIAGN (01/01/18) INJECT STEROID (09/23/14) PARTIAL OSTECTOMY NEC (09/23/14) PER NERVE ADHESIOLYS NEC (09/23/14) Family History: States: No Known Family Hx - Social History Hx Tobacco Use: Yes Hx Alcohol Use: No Hx Substance Use: No - Immunization History Hx Influenza Vaccination: Yes Hx Pneumococcal Vaccination: Yes Review Of Systems Constitutional: Negative for: Fever, Chills Cardiovascular: Negative for: Chest Pain, Palpitations Respiratory: Positive for: Shortness of Breath Gastrointestinal: Negative for: Nausea, Vomiting Musculoskeletal: Positive for: Other (Generalized body aches) Neurological: Negative for: Weakness, Numbness Physical Exam - Physical Exam Appears: Non-toxic Skin: Warm, Dry Head: Normacephalic Eye(s): bilateral: Normal Inspection Oral Mucosa: Moist Neck: Trachea Midline, Supple Chest: Symmetrical, No Tenderness Cardiovascular: Rhythm Regular Respiratory: Decreased Breath Sounds, No Rales, Rhonchi (Bilaterally), Wheezing (Bilaterally) Gastrointestinal/Abdominal: Soft, No Tenderness Neurological/Psych: Oriented x3 ED Course And Treatment - Laboratory Results Result Diagrams: 06/05/18 00:14 06/05/18 00:14 ECG: Interpreted By Me, Viewed By Me O2 Sat by Pulse Oximetry: 96 Pulse Ox Interpretation: Normal - Radiology CXR: Interpreted by Me, Viewed By Me Progress Note: Blood work, EKG, and urinalysis ordered. Duoneb and solumedrol administered. pt refused abg Critical Care Time - Critical Care Note Total Time (in mins): 30 Documented critical care: time excludes all time spent performing seperately billable procedures. Disposition Discussed With Dr.: Linda Stewart Comment: accepted the pt on his service and took over the care at 1:52 AM Doctor Will See Patient In The: Hospital Counseled Patient/Family Regarding: Studies Performed, Diagnosis - Disposition Disposition: HOSPITALIZED Disposition Time: 22:52 Condition: GUARDED - POA Present On Arrival: Poor Glycemic Control - Clinical Impression Clinical Impression: Dyspnea, Respiratory distress, COPD exacerbation - Scribe Statement The provider has reviewed the documentation as recorded by the Scribe Arnie Huerta All medical record entries made by the Scribe were at my direction and personally dictated by me. I have reviewed the chart and agree that the record accurately reflects my personal performance of the history, physical exam, medical decision making, and the department course for this patient. I have also personally directed, reviewed, and agree with the discharge instructions and disposition. Decision To Admit - Pt Status Changed To: Hospital Disposition Of: Observation - . Bed Request Type: Telemetry Admitting Physician: Linda Stewart Patient Diagnosis: Dyspnea, Respiratory distress, COPD exacerbation
[2018-06-04] MEDS: Albuterol-Ipratrop 3 mg / 0.5 (3 ml) UD IH SCH ×2 (23:19→23:30)
[2018-06-05] MEDS: Albuterol-Ipratrop 3 mg / 0.5 (3 ml) UD IH SCH
[2018-06-05 00:23] LABS: BASO # 0.1 K/uL (0.0-0.2); BASO % 0.5 % (0.0-2.0); EOS % 0.3 % (0.0-4.0); HEMOGLOBIN 11.4 g/dL (11.0-16.0); LYMPH # 1.2 K/uL (1.0-4.3); LYMPH % 10.7 % (20.0-40.0); MEAN CELL VOLUME 72.1 fL (81.0-99.0); MEAN CORPUSCULAR HEMOGLOBIN 22.8 pg (27.0-31.0); MEAN CORPUSCULAR HGB CONC 31.6 g/dL (33.0-37.0); MEAN PLATELET VOLUME 9.2 fL (7.2-11.7); MONO # 1.4 K/uL (0.0-0.8); MONO % 11.9 % (0.0-10.0); NEUT # 8.7 K/uL (1.8-7.0); NEUT % 76.6 % (50.0-75.0); RED CELL DISTRIBUTION WIDTH 20.5 % (11.5-14.5); WHITE BLOOD COUNT 11.4 K/uL (4.8-10.8)
[2018-06-05 00:43] LABS: ALBUMIN 4.2 g/dL (3.5-5.0); BLOOD UREA NITROGEN 13 mg/dL (7-17); CALCIUM 9.6 mg/dl (8.6-10.4); GFR NON-AFRICAN AMERICAN > 60
[2018-06-05 00:44] LABS: ALB/GLOB RATIO 1.3 (1.0-2.1); ALT/SGPT 19 U/L (9-52); AST/SGOT 36 U/L (14-36)
[2018-06-05 01:05] LABS: INR 1.1; PROTHROMBIN TIME 12.5 SECONDS (9.7-12.2)
[2018-06-05] MEDS ORDERED: Albuterol-Ipratrop 3 mg / 0.5 (3 ml) UD ONE ×2 (01:22→01:50)
[2018-06-05] MEDS ORDERED: Albuterol-Ipratrop 3 mg / 0.5 (3 ml) UD INH STA (01:23)
[2018-06-05] MEDS ORDERED: Magnesium Sulfate 1 gm in D5W 1 GM/100 ML BAG IVPB ONE (01:30)
[2018-06-05] MEDS: Magnesium Sulfate 1 gm in D5W 1 GM/100 ML BAG IVPB SCH ×2 (01:38→02:27)
[2018-06-05 01:46] LABS: VENOUS BLOOD GAS BASE EXCESS 1.2 mmol/L (0.0-2.0); VENOUS BLOOD GAS PCO2 44 mmHg (40-60); VENOUS BLOOD GAS PO2 29 mm/Hg (30-55); VENOUS BLOOD PH 7.39 (7.32-7.43)
[2018-06-05] MEDS ORDERED: Piperacillin/Tazobact 3.375 gm 100 ML IVPB STA (01:54)
[2018-06-05] MEDS: Albuterol-Ipratrop 3 mg / 0.5 (3 ml) UD INH SCH ×4 (02:20→12:17)
--- NOTE | 2018-06-05 07:50 | RAD ---
Date of service: 06/05/2018 PROCEDURE: CHEST RADIOGRAPH, 1 VIEW HISTORY: sob COMPARISON: 01/05/2018 FINDINGS: LUNGS: No consolidation. Increase opacity at right lung base attributed to probable right breast implant. PLEURA: Prior left costophrenic angle pneumothorax not now appreciated. No interval pneumothorax seen. No interval pleural effusion appreciated. CARDIOVASCULAR: There is presence of aortic atherosclerotic calcification on x-ray. Normal heart size. No significant appearing pulmonary venous congestion. OSSEOUS STRUCTURES: No significant abnormalities. VISUALIZED UPPER ABDOMEN: Normal. OTHER FINDINGS: Right axillary lymph node dissection clips-similar IMPRESSION: No active disease.No interval pathology noted.
[2018-06-05] MEDS ORDERED: FLUTICASONE INH PRN (08:33)
[2018-06-05] MEDS ORDERED: SALMETEROL INH PRN (08:33)
[2018-06-05] MEDS: Enoxaparin 40 mg Syringe SC SCH (09:46)
[2018-06-05] MEDS: Magnesium Oxide 400 mg Tab UD PO SCH (09:46)
[2018-06-05] MEDS: Pantoprazole 40 mg EC Tab PO SCH (09:50)
[2018-06-05] MEDS ORDERED: Albuterol 0.083% Inhal Sol (2.5 mg/3 mL) UD IH PRN (10:00)
[2018-06-05] MEDS ORDERED: Budesonide 0.5 mg/2 ml Inhal Susp UD INH SCH (10:00)
[2018-06-05] MEDS ORDERED: Arformoterol 15 mcg/2 ml Inh Sol INH SCH ×3 (10:00→20:00)
--- NOTE | 2018-06-05 10:06 | CP.PCM.HP ---
Past Patient History - Infectious Disease Hx of Infectious Diseases: None - Tetanus Immunizations Tetanus Immunization: Unknown - Past Medical History & Family History Past Medical History?: Yes - Past Social History Smoking Status: Light Smoker < 10 Cigarettes Daily - CARDIAC Hx Hypertension: Yes - PULMONARY Hx Asthma: Yes Hx Bronchitis: Yes Hx Chronic Obstructive Pulmonary Disease (COPD): Yes Hx Pneumonia: Yes - NEUROLOGICAL Hx Seizures: Yes (about 20 yrs. ago) - HEENT Hx HEENT Problems: Yes Hx Cataracts: Yes Other/Comment: Use eyeglasses for reading - RENAL Hx Chronic Kidney Disease: No - ENDOCRINE/METABOLIC Hx Endocrine Disorders: Yes Hx Diabetes Mellitus Type 2: Yes - HEMATOLOGICAL/ONCOLOGICAL Hx Human Immunodeficiency Virus (HIV): No - INTEGUMENTARY Hx Dermatological Problems: No - MUSCULOSKELETAL/RHEUMATOLOGICAL Hx Arthritis: Yes - GASTROINTESTINAL Hx Gastrointestinal Disorders: No - GENITOURINARY/GYNECOLOGICAL Other/Comment: kidney stones - PSYCHIATRIC Hx Substance Use: No - SURGICAL HISTORY Hx Appendectomy: Yes Hx Cholecystectomy: Yes - ANESTHESIA Hx Anesthesia: Yes Hx Anesthesia Reactions: No Hx Malignant Hyperthermia: No Meds Allergies/Adverse Reactions: Allergies Allergy/AdvReac Type Severity Reaction Status Date / Time iron Allergy REDNESS Verified 06/01/18 12:39 Physical Exam - Constitutional Appears: Well - Head Exam Head Exam: ATRAUMATIC, NORMAL INSPECTION, NORMOCEPHALIC - Eye Exam Eye Exam: EOMI, Normal appearance, PERRL Pupil Exam: NORMAL ACCOMODATION, PERRL - ENT Exam ENT Exam: Mucous Membranes Moist, Normal Exam - Neck Exam Neck exam: Positive for: Normal Inspection - Respiratory Exam Respiratory Exam: Decreased Breath Sounds - Cardiovascular Exam Cardiovascular Exam: REGULAR RHYTHM, +S1, +S2 - GI/Abdominal Exam GI & Abdominal Exam: Diminished Bowel Sounds, Soft - Rectal Exam Rectal Exam: Deferred - Neurological Exam Neurological exam: Oriented x3 Results - Vital Signs Recent Vital Signs: Last Vital Signs Temp 98.6 F 06/05/18 08:26 Pulse 96 H 06/05/18 08:26 Resp 18 06/05/18 08:26 BP 105/66 06/05/18 08:26 Pulse Ox 95 06/05/18 08:26 - Labs Result Diagrams: 06/05/18 00:14 06/05/18 00:14 Labs: Laboratory Results - last 24 hr 06/05/18 06/05/18 06/05/18 00:14 00:14 00:14 WBC 11.4 H D RBC 5.00 Hgb 11.4 Hct 36.1 MCV 72.1 L MCH 22.8 L MCHC 31.6 L RDW 20.5 H Plt Count 211 MPV 9.2 Neut % (Auto) 76.6 H Lymph % (Auto) 10.7 L [place] % (Auto) 11.9 H Eos % (Auto) 0.3 Baso % (Auto) 0.5 Neut # (Auto) 8.7 H Lymph # (Auto) 1.2 [place] # (Auto) 1.4 H Eos # (Auto) 0.0 Baso # (Auto) 0.1 PT 12.5 H INR 1.1 APTT 40 H pO2 VBG pH VBG pCO2 VBG HCO3 VBG Total CO2 VBG O2 Sat (Calc) VBG Base Excess VBG Potassium Glucose Lactate Sodium 138 Potassium 4.1 Chloride 102 Carbon Dioxide 27 Anion Gap 13 BUN 13 Creatinine 0.8 Est GFR ( Amer) > 60 Est GFR (Non-Af Amer) > 60 POC Glucose (mg/dL) Random Glucose 96 Calcium 9.6 Magnesium 1.5 L Total Bilirubin 0.4 AST 36 ALT 19 Alkaline Phosphatase 130 H Total Protein 7.5 Albumin 4.2 Globulin 3.3 Albumin/Globulin Ratio 1.3 Venous Blood Potassium 06/05/18 06/05/18 01:43 06:39 WBC RBC Hgb Hct MCV MCH MCHC RDW Plt Count MPV Neut % (Auto) Lymph % (Auto) [place] % (Auto) Eos % (Auto) Baso % (Auto) Neut # (Auto) Lymph # (Auto) [place] # (Auto) Eos # (Auto) Baso # (Auto) PT INR APTT pO2 29 L VBG pH 7.39 VBG pCO2 44 VBG HCO3 24.7 VBG Total CO2 28.0 VBG O2 Sat (Calc) 59.8 VBG Base Excess 1.2 VBG Potassium 4.1 Glucose 105 Lactate 1.9 Sodium 138.0 Potassium Chloride 103.0 Carbon Dioxide Anion Gap BUN Creatinine Est GFR ( Amer) Est GFR (Non-Af Amer) POC Glucose (mg/dL) 229 H Random Glucose Calcium Magnesium Total Bilirubin AST ALT Alkaline Phosphatase Total Protein Albumin Globulin Albumin/Globulin Ratio Venous Blood Potassium 4.1 Assessment & Plan (1) COPD exacerbation Status: Acute (2) Dyspnea Status: Acute (3) Respiratory distress Status: Acute (4) Acute mastitis of right breast Status: Acute Priority: High (5) Arthritis Status: Acute (6) Cellulitis Status: Acute Priority: High (7) Chest pain Status: Acute (8) Constipation Status: Acute (9) Dehydration Status: Acute (10) Fever Status: Acute (11) Foot pain Status: Acute (12) Generalized weakness Status: Acute (13) Hand pain Status: Acute (14) Intractable abdominal pain Status: Acute (15) Left against medical advice Status: Acute (16) Lung nodule Status: Acute (17) Metatarsal fracture Status: Acute (18) Nerve entrapment syndrome of foot Status: Acute Priority: High (19) SOB (shortness of breath) Status: Acute (20) Syncope, near Status: Acute (21) Tailors bunion Status: Acute (22) UTI (urinary tract infection) Status: Acute (23) Vertigo Status: Acute (24) Anemia Status: Chronic (25) Asthma Status: Chronic (26) Diabetes Status: Chronic (27) Hx of breast cancer Status: Chronic - Assessment and Plan (Free Text) Plan: DuoNeb WBC is 11.4 Hemoglobin hematocrit is 11.4 and 36 Chest x-ray reveals no active disease Loratadine Glimepiride Lovenox and Protonix Amlodipine IV Zosyn Solu-Medrol 40 every 8 hr pulmonary consult with Dr. Greer
--- NOTE | 2018-06-05 11:11 | CP.PCM.CON ---
<Savannah Hernandez - Last Filed: 06/05/18 13:32> History of Present Illness - History of Present Illness History of Present Illness: Pulm Consult Note for Dr. Bazan 67 year old female with past medical history of asthma, bronchitis, COPD, PNA, HTN, DM, arthritis presents to the ED with SOB and generalized body aches for past year. Pulmonology has been consulted for COPD exacerbation. She states two days ago she came to the ED for dizziness and weakness. She was discharged on meclizine for benign positional vertigo. Yesterday she stated she developed shortness of breath due to the cold and windy weather yesterday. This subsided after she came inside. However, at night the shortness of breath came back, so much so that her daughter decided to call an ambulance. Patient was last hospitalized for COPD exacerbation in December. She states she is compliant with her home medications. Patient follows with Dr. Bazan as outpatient PMHx: asthma, bronchitis, COPD, PNA, HTN, DM, arthritis PSHx: appendectomy, cholecystectomy Allergies: Iron, seasonal allergies Social: previous smoker, quit 3 months ago denies environmental toxins has 3 dogs and a parakeet Family history:Extensive family history of COPD, Sister with breast and cervical cancer Review of Systems - Constitutional Constitutional: Weakness. absent: Chills, Fever - Cardiovascular Cardiovascular: absent: Chest Pain, Syncope - Respiratory Respiratory: Cough, Dyspnea, Dyspnea on Exertion, Wheezing - Gastrointestinal Gastrointestinal: absent: Abdominal Pain, Nausea, Vomiting Past Patient History - Infectious Disease Hx of Infectious Diseases: None - Tetanus Immunizations Tetanus Immunization: Unknown - Past Medical History & Family History Past Medical History?: Yes - Past Social History Smoking Status: Light Smoker < 10 Cigarettes Daily - CARDIAC Hx Hypertension: Yes - PULMONARY Hx Asthma: Yes Hx Bronchitis: Yes Hx Chronic Obstructive Pulmonary Disease (COPD): Yes Hx Pneumonia: Yes - NEUROLOGICAL Hx Seizures: Yes (about 20 yrs. ago) - HEENT Hx HEENT Problems: Yes Hx Cataracts: Yes Other/Comment: Use eyeglasses for reading - RENAL Hx Chronic Kidney Disease: No - ENDOCRINE/METABOLIC Hx Endocrine Disorders: Yes Hx Diabetes Mellitus Type 2: Yes - HEMATOLOGICAL/ONCOLOGICAL Hx Human Immunodeficiency Virus (HIV): No - INTEGUMENTARY Hx Dermatological Problems: No - MUSCULOSKELETAL/RHEUMATOLOGICAL Hx Arthritis: Yes - GASTROINTESTINAL Hx Gastrointestinal Disorders: No - GENITOURINARY/GYNECOLOGICAL Other/Comment: kidney stones - PSYCHIATRIC Hx Substance Use: No - SURGICAL HISTORY Hx Appendectomy: Yes Hx Cholecystectomy: Yes - ANESTHESIA Hx Anesthesia: Yes Hx Anesthesia Reactions: No Hx Malignant Hyperthermia: No Meds Allergies/Adverse Reactions: Allergies Allergy/AdvReac Type Severity Reaction Status Date / Time iron Allergy REDNESS Verified 06/01/18 12:39 - Medications Medications: Current Medications Albuterol Sulfate (Albuterol 0.083% Inhal Kaylynn (2.5 Mg/3 Ml) Ud) 2.5 mg IH RQ6 PRN PRN Reason: Wheezing Amlodipine Besylate (Norvasc) 5 mg PO DAILY [facility] Last Admin: 06/05/18 09:46 Dose: 5 mg Arformoterol Tartrate (Brovana) 15 mcg INH RQ12 [facility] Budesonide (Pulmicort Respules) 1 mg INH RQ12 [facility] Enoxaparin Sodium (Lovenox) 40 mg SC DAILY [facility] Last Admin: 06/05/18 09:46 Dose: 40 mg Glimepiride (Amaryl) 2 mg PO DAILY [facility] Last Admin: 06/05/18 09:46 Dose: 2 mg Piperacillin Sod/Tazobactam Sod (Zosyn 3.375 In Ns 100ml) 100 mls @ 200 mls/hr IVPB Q8 [facility]; Protocol Loratadine (Claritin) 10 mg PO DAILY [facility] Last Admin: 06/05/18 09:50 Dose: 10 mg Magnesium Oxide (Mag-Ox) 400 mg PO DAILY [facility] Stop: 06/07/18 10:01 Last Admin: 06/05/18 09:46 Dose: 400 mg Methylprednisolone (Solu-Medrol) 40 mg IVP Q8 [facility] Pantoprazole Sodium (Protonix Ec Tab) 40 mg PO DAILY [facility] Last Admin: 06/05/18 09:50 Dose: 40 mg Physical Exam - Constitutional Appears: Non-toxic - Head Exam Head Exam: ATRAUMATIC, NORMOCEPHALIC - Eye Exam Eye Exam: EOMI, Normal appearance - ENT Exam ENT Exam: Mucous Membranes Moist - Respiratory Exam Respiratory Exam: Decreased Breath Sounds, Wheezes, NORMAL BREATHING PATTERN - Cardiovascular Exam Cardiovascular Exam: REGULAR RHYTHM, +S1, +S2 - GI/Abdominal Exam GI & Abdominal Exam: Normal Bowel Sounds, Soft - Extremities Exam Extremities exam: Positive for: normal inspection. Negative for: pedal edema - Skin Skin Exam: Dry, Warm Results - Vital Signs Recent Vital Signs: Last Vital Signs Temp 98.6 F 06/05/18 08:26 Pulse 96 H 06/05/18 08:26 Resp 18 06/05/18 08:26 BP 105/66 06/05/18 08:26 Pulse Ox 95 06/05/18 08:26 - Labs Result Diagrams: 06/05/18 00:14 06/05/18 00:14 Labs: Laboratory Results - last 24 hr 06/05/18 06/05/18 06/05/18 00:14 00:14 00:14 WBC 11.4 H D RBC 5.00 Hgb 11.4 Hct 36.1 MCV 72.1 L MCH 22.8 L MCHC 31.6 L RDW 20.5 H Plt Count 211 MPV 9.2 Neut % (Auto) 76.6 H Lymph % (Auto) 10.7 L [place] % (Auto) 11.9 H Eos % (Auto) 0.3 Baso % (Auto) 0.5 Neut # (Auto) 8.7 H Lymph # (Auto) 1.2 [place] # (Auto) 1.4 H Eos # (Auto) 0.0 Baso # (Auto) 0.1 PT 12.5 H INR 1.1 APTT 40 H pO2 VBG pH VBG pCO2 VBG HCO3 VBG Total CO2 VBG O2 Sat (Calc) VBG Base Excess VBG Potassium Glucose Lactate Sodium 138 Potassium 4.1 Chloride 102 Carbon Dioxide 27 Anion Gap 13 BUN 13 Creatinine 0.8 Est GFR ( Amer) > 60 Est GFR (Non-Af Amer) > 60 POC Glucose (mg/dL) Random Glucose 96 Calcium 9.6 Magnesium 1.5 L Total Bilirubin 0.4 AST 36 ALT 19 Alkaline Phosphatase 130 H Total Protein 7.5 Albumin 4.2 Globulin 3.3 Albumin/Globulin Ratio 1.3 Venous Blood Potassium 06/05/18 06/05/18 01:43 06:39 WBC RBC Hgb Hct MCV MCH MCHC RDW Plt Count MPV Neut % (Auto) Lymph % (Auto) [place] % (Auto) Eos % (Auto) Baso % (Auto) Neut # (Auto) Lymph # (Auto) [place] # (Auto) Eos # (Auto) Baso # (Auto) PT INR APTT pO2 29 L VBG pH 7.39 VBG pCO2 44 VBG HCO3 24.7 VBG Total CO2 28.0 VBG O2 Sat (Calc) 59.8 VBG Base Excess 1.2 VBG Potassium 4.1 Glucose 105 Lactate 1.9 Sodium 138.0 Potassium Chloride 103.0 Carbon Dioxide Anion Gap BUN Creatinine Est GFR ( Amer) Est GFR (Non-Af Amer) POC Glucose (mg/dL) 229 H Random Glucose Calcium Magnesium Total Bilirubin AST ALT Alkaline Phosphatase Total Protein Albumin Globulin Albumin/Globulin Ratio Venous Blood Potassium 4.1 Assessment & Plan - Assessment and Plan (Free Text) Assessment: 67 year old female with PMHx of asthma, bronchitis, COPD, PNA, HTN, arthritis who presents with shortness of breath most likely COPD exacerbation Plan: A: COPD exacerbation HTN chronic pain 2/2 arthritis and prior surgical procedures DM2 P: Duonebs q4h prn Breo Ellipta daily IV methylprednisolon 40 q8h IV zosyn Further medical management as per primary - Date & Time Date: 06/05/18 Time: 12:29 <Rajendra Bazan S - Last Filed: 06/05/18 16:15> Meds - Medications Medications: Current Medications Acetaminophen (Tylenol 325mg Tab) 650 mg PO Q6 PRN PRN Reason: Pain, Mild (1-3) Albuterol/Ipratropium (Duoneb 3 Mg/0.5 Mg (3 Ml) Ud) 3 ml INH RQ4 PRN PRN Reason: Shortness of Breath Amlodipine Besylate (Norvasc) 5 mg PO DAILY [facility] Last Admin: 06/05/18 09:46 Dose: 5 mg Arformoterol Tartrate (Brovana) 15 mcg INH RQ12 [facility] Budesonide (Pulmicort Respules) 0.25 mg INH RQ12 [facility] Dextrose (Dextrose 50% Inj) 0 ml IV STAT PRN; Protocol PRN Reason: Hypoglycemia Protocol Dextrose (Glutose 15) 0 gm PO ONCE PRN; Protocol PRN Reason: Hypoglycemia Protocol Enoxaparin Sodium (Lovenox) 40 mg SC DAILY [facility] Last Admin: 06/05/18 09:46 Dose: 40 mg Glimepiride (Amaryl) 2 mg PO DAILY [facility] Last Admin: 06/05/18 09:46 Dose: 2 mg Glucagon (Glucagen Diagnostic Kit) 0 mg IM STAT PRN; Protocol PRN Reason: Hypoglycemia Protocol Piperacillin Sod/Tazobactam (Sod 3.375 gm/ Sodium Chloride) 100 mls @ 200 mls/hr IVPB Q8 [facility]; Protocol Last Admin: 06/05/18 14:13 Dose: 200 mls/hr Dextrose (Dextrose 5% In Water 1000 Ml) 1,000 mls @ 0 mls/hr IV .Q0M PRN; Protocol PRN Reason: Hypoglycemia Protocol Insulin Aspart (Novolog) 0 unit SC ACHS [facility]; Protocol Last Admin: 06/05/18 12:33 Dose: 8 units Loratadine (Claritin) 10 mg PO DAILY [facility] Last Admin: 06/05/18 09:50 Dose: 10 mg Magnesium Oxide (Mag-Ox) 400 mg PO DAILY [facility] Stop: 06/07/18 10:01 Last Admin: 06/05/18 09:46 Dose: 400 mg Methylprednisolone (Solu-Medrol) 40 mg IVP Q8 [facility] Last Admin: 06/05/18 14:13 Dose: 40 mg Pantoprazole Sodium (Protonix Ec Tab) 40 mg PO DAILY [facility] Last Admin: 06/05/18 09:50 Dose: 40 mg Tramadol HCl (Ultram) 50 mg PO Q6 PRN PRN Reason: Pain, moderate (4-7) Last Admin: 06/05/18 12:32 Dose: 50 mg Results - Vital Signs Recent Vital Signs: Last Vital Signs Temp 98.6 F 06/05/18 08:26 Pulse 96 H 06/05/18 08:26 Resp 18 06/05/18 08:26 BP 105/66 06/05/18 08:26 Pulse Ox 95 06/05/18 12:52 - Labs Result Diagrams: 06/05/18 00:14 06/05/18 00:14 Labs: Laboratory Results - last 24 hr 06/05/18 06/05/18 06/05/18 00:14 00:14 00:14 WBC 11.4 H D RBC 5.00 Hgb 11.4 Hct 36.1 MCV 72.1 L MCH 22.8 L MCHC 31.6 L RDW 20.5 H Plt Count 211 MPV 9.2 Neut % (Auto) 76.6 H Lymph % (Auto) 10.7 L [place] % (Auto) 11.9 H Eos % (Auto) 0.3 Baso % (Auto) 0.5 Neut # (Auto) 8.7 H Lymph # (Auto) 1.2 [place] # (Auto) 1.4 H Eos # (Auto) 0.0 Baso # (Auto) 0.1 PT 12.5 H INR 1.1 APTT 40 H D-Dimer, Quantitative pO2 VBG pH VBG pCO2 VBG HCO3 VBG Total CO2 VBG O2 Sat (Calc) VBG Base Excess VBG Potassium Glucose Lactate Sodium 138 Potassium 4.1 Chloride 102 Carbon Dioxide 27 Anion Gap 13 BUN 13 Creatinine 0.8 Est GFR ( Amer) > 60 Est GFR (Non-Af Amer) > 60 POC Glucose (mg/dL) Random Glucose 96 Calcium 9.6 Magnesium 1.5 L Total Bilirubin 0.4 AST 36 ALT 19 Alkaline Phosphatase 130 H Total Protein 7.5 Albumin 4.2 Globulin 3.3 Albumin/Globulin Ratio 1.3 Venous Blood Potassium 06/05/18 06/05/18 06/05/18 01:43 06:39 11:22 WBC RBC Hgb Hct MCV MCH MCHC RDW Plt Count MPV Neut % (Auto) Lymph % (Auto) [place] % (Auto) Eos % (Auto) Baso % (Auto) Neut # (Auto) Lymph # (Auto) [place] # (Auto) Eos # (Auto) Baso # (Auto) PT INR APTT D-Dimer, Quantitative pO2 29 L VBG pH 7.39 VBG pCO2 44 VBG HCO3 24.7 VBG Total CO2 28.0 VBG O2 Sat (Calc) 59.8 VBG Base Excess 1.2 VBG Potassium 4.1 Glucose 105 Lactate 1.9 Sodium 138.0 Potassium Chloride 103.0 Carbon Dioxide Anion Gap BUN Creatinine Est GFR ( Amer) Est GFR (Non-Af Amer) POC Glucose (mg/dL) 229 H 395 H Random Glucose Calcium Magnesium Total Bilirubin AST ALT Alkaline Phosphatase Total Protein Albumin Globulin Albumin/Globulin Ratio Venous Blood Potassium 4.1 06/05/18 11:25 WBC RBC Hgb Hct MCV MCH MCHC RDW Plt Count MPV Neut % (Auto) Lymph % (Auto) [place] % (Auto) Eos % (Auto) Baso % (Auto) Neut # (Auto) Lymph # (Auto) [place] # (Auto) Eos # (Auto) Baso # (Auto) PT INR APTT D-Dimer, Quantitative 364 H pO2 VBG pH VBG pCO2 VBG HCO3 VBG Total CO2 VBG O2 Sat (Calc) VBG Base Excess VBG Potassium Glucose Lactate Sodium Potassium Chloride Carbon Dioxide Anion Gap BUN Creatinine Est GFR ( Amer) Est GFR (Non-Af Amer) POC Glucose (mg/dL) Random Glucose Calcium Magnesium Total Bilirubin AST ALT Alkaline Phosphatase Total Protein Albumin Globulin Albumin/Globulin Ratio Venous Blood Potassium Attending/Attestation - Attestation I have personally seen and examined this patient.: Yes I have fully participated in the care of the patient.: Yes I have reviewed all pertinent clinical information: Yes Notes (Text): 06/05/18 16:15 Patient seen and examined 67-year-old female with COPD presented with increasing shortness of breath Continue IV steroids, nebulizer treatment Follow-up ABG and chest x-ray
[2018-06-05] MEDS ORDERED: Albuterol 0.083% Inhal Sol (2.5 mg/3 mL) UD IH SCH (12:00)
[2018-06-05] MEDS ORDERED: Dextrose 50% SYRINGE Inj (50 ml) IV PRN (12:08)
[2018-06-05] MEDS ORDERED: Glucagon Recombinant 1 mg Inj IM PRN (12:08)
[2018-06-05] MEDS: (Novolog) Insulin Aspart, Recombinant 100 u/ml 10 ml vial SC SCH ×3 (12:33→21:47)
[2018-06-05] MEDS: MethylPREDNISolone 40 mg Vial IVP SCH ×2 (14:13→21:48)
[2018-06-05] MEDS: Piperacillin/Tazobact 3.375 GM in Sodium Chloride 0.9% 100 ML IVPB SCH ×2 (14:13→21:48)
[2018-06-05] MEDS: Budesonide 0.25 mg/2 ml Inhal Susp UD INH SCH (20:10)
[2018-06-05] MEDS: Albuterol-Ipratrop 3 mg / 0.5 (3 ml) UD INH PRN (20:11)
[2018-06-05] MEDS ORDERED: Oxycodone/Acetaminophen 5/325 mg Tab PO STA (23:14)
[2018-06-06 02:32] VITALS: RESP 20
[2018-06-06] MEDS: Piperacillin/Tazobact 3.375 GM in Sodium Chloride 0.9% 100 ML IVPB SCH ×3 (05:18→22:57)
[2018-06-06] MEDS: MethylPREDNISolone 40 mg Vial IVP SCH ×3 (05:18→22:57)
[2018-06-06] MEDS: Budesonide 0.25 mg/2 ml Inhal Susp UD INH SCH ×2 (08:00→19:55)
[2018-06-06] MEDS ORDERED: Fluticasone-Vilanterol 100/25mcg Diskus INH SCH (08:00)
[2018-06-06] MEDS: (Novolog) Insulin Aspart, Recombinant 100 u/ml 10 ml vial SC SCH ×4 (08:45→22:56)
[2018-06-06] MEDS: Pantoprazole 40 mg EC Tab PO SCH (10:35)
[2018-06-06] MEDS: Magnesium Oxide 400 mg Tab UD PO SCH (10:35)
[2018-06-06] MEDS: Enoxaparin 40 mg Syringe SC SCH (10:35)
--- NOTE | 2018-06-06 10:58 | CP.PCM.PN ---
<DavidRickygifty - Last Filed: 06/06/18 14:27> Subjective - Date & Time of Evaluation Date of Evaluation: 06/06/18 Time of Evaluation: 10:56 - Subjective Subjective: Pulm Consult Note for Dr. Bazan Patient seen and examined at bed side. Patient is afebrile and states shortness of breath and cough are improving. Patient had episodes of tachycardia overnight, breo ellipta was stopped. Denies nausea, vomiting, or diarrhea. ROS: all over systems reviewed and negative Objective - Vital Signs/Intake and Output Vital Signs (last 24 hours): Temp Pulse Resp BP Pulse Ox 98 F 100 H 20 109/54 L 95 06/05/18 23:30 06/06/18 07:00 06/05/18 23:30 06/05/18 23:30 06/05/18 23:30 - Medications Medications: Current Medications Acetaminophen (Tylenol 325mg Tab) 650 mg PO Q6 PRN PRN Reason: Pain, Mild (1-3) Albuterol/Ipratropium (Duoneb 3 Mg/0.5 Mg (3 Ml) Ud) 3 ml INH RQ4 PRN PRN Reason: Shortness of Breath Last Admin: 06/05/18 20:11 Dose: 3 ml Amlodipine Besylate (Norvasc) 5 mg PO DAILY [facility] Last Admin: 06/06/18 10:35 Dose: 5 mg Arformoterol Tartrate (Brovana) 15 mcg INH RQ12 [facility] Budesonide (Pulmicort Respules) 0.25 mg INH RQ12 [facility] Last Admin: 06/06/18 08:00 Dose: Not Given Dextrose (Dextrose 50% Inj) 0 ml IV STAT PRN; Protocol PRN Reason: Hypoglycemia Protocol Dextrose (Glutose 15) 0 gm PO ONCE PRN; Protocol PRN Reason: Hypoglycemia Protocol Enoxaparin Sodium (Lovenox) 40 mg SC DAILY [facility] Last Admin: 06/06/18 10:35 Dose: 40 mg Glimepiride (Amaryl) 2 mg PO DAILY [facility] Last Admin: 06/06/18 10:35 Dose: 2 mg Glucagon (Glucagen Diagnostic Kit) 0 mg IM STAT PRN; Protocol PRN Reason: Hypoglycemia Protocol Piperacillin Sod/Tazobactam (Sod 3.375 gm/ Sodium Chloride) 100 mls @ 200 mls/hr IVPB Q8 [facility]; Protocol Last Admin: 06/06/18 05:18 Dose: 200 mls/hr Dextrose (Dextrose 5% In Water 1000 Ml) 1,000 mls @ 0 mls/hr IV .Q0M PRN; Protocol PRN Reason: Hypoglycemia Protocol Insulin Aspart (Novolog) 0 unit SC ACHS [facility]; Protocol Last Admin: 06/06/18 08:45 Dose: 6 units Loratadine (Claritin) 10 mg PO DAILY [facility] Last Admin: 06/06/18 10:35 Dose: 10 mg Magnesium Oxide (Mag-Ox) 400 mg PO DAILY [facility] Stop: 06/07/18 10:01 Last Admin: 06/06/18 10:35 Dose: 400 mg Methylprednisolone (Solu-Medrol) 40 mg IVP Q8 [facility] Last Admin: 06/06/18 05:18 Dose: 40 mg Pantoprazole Sodium (Protonix Ec Tab) 40 mg PO DAILY [facility] Last Admin: 06/06/18 10:35 Dose: 40 mg Tramadol HCl (Ultram) 50 mg PO Q6 PRN PRN Reason: Pain, moderate (4-7) Last Admin: 06/05/18 12:32 Dose: 50 mg - Labs Labs: 06/05/18 00:14 06/05/18 00:14 PT 12.5 SECONDS (9.7-12.2) H 06/05/18 00:14 INR 1.1 06/05/18 00:14 APTT 40 SECONDS (21-34) H 06/05/18 00:14 - Head Exam Head Exam: ATRAUMATIC, NORMOCEPHALIC - Eye Exam Eye Exam: Normal appearance Pupil Exam: NORMAL ACCOMODATION - ENT Exam ENT Exam: Mucous Membranes Moist - Neck Exam Neck Exam: Normal Inspection - Respiratory Exam Respiratory Exam: Wheezes (slight bilaterally), NORMAL BREATHING PATTERN - Cardiovascular Exam Cardiovascular Exam: REGULAR RHYTHM, +S1, +S2 - GI/Abdominal Exam GI & Abdominal Exam: Soft, Normal Bowel Sounds. absent: Distended - Extremities Exam Extremities Exam: Tenderness (right ankle pain) - Skin Skin Exam: Dry, Warm Assessment and Plan - Assessment and Plan (Free Text) Assessment: 67 year old female with PMHx of asthma, bronchitis, COPD, PNA, HTN, arthritis who presents with shortness of breath most likely COPD exacerbation Plan: A: COPD exacerbation HTN chronic pain 2/2 arthritis and prior surgical procedures on foot DM2 P: Duonebs q4h PRN Brovana BID Pulmicort BID IV methlprednisolone 40 q8h IV peptazo further medical management as per primary team <Rajendra Bazan - Last Filed: 06/06/18 15:25> Objective - Vital Signs/Intake and Output Vital Signs (last 24 hours): Temp Pulse Resp BP Pulse Ox 98 F 100 H 20 109/54 L 95 06/05/18 23:30 06/06/18 07:00 06/05/18 23:30 06/05/18 23:30 06/05/18 23:30 - Medications Medications: Current Medications Acetaminophen (Tylenol 325mg Tab) 650 mg PO Q6 PRN PRN Reason: Pain, Mild (1-3) Albuterol/Ipratropium (Duoneb 3 Mg/0.5 Mg (3 Ml) Ud) 3 ml INH RQ4 PRN PRN Reason: Shortness of Breath Last Admin: 06/05/18 20:11 Dose: 3 ml Amlodipine Besylate (Norvasc) 5 mg PO DAILY [facility] Last Admin: 06/06/18 10:35 Dose: 5 mg Arformoterol Tartrate (Brovana) 15 mcg INH RQ12 [facility] Budesonide (Pulmicort Respules) 0.25 mg INH RQ12 [facility] Last Admin: 06/06/18 08:00 Dose: Not Given Dextrose (Dextrose 50% Inj) 0 ml IV STAT PRN; Protocol PRN Reason: Hypoglycemia Protocol Dextrose (Glutose 15) 0 gm PO ONCE PRN; Protocol PRN Reason: Hypoglycemia Protocol Enoxaparin Sodium (Lovenox) 40 mg SC DAILY [facility] Last Admin: 06/06/18 10:35 Dose: 40 mg Glimepiride (Amaryl) 2 mg PO DAILY [facility] Last Admin: 06/06/18 10:35 Dose: 2 mg Glucagon (Glucagen Diagnostic Kit) 0 mg IM STAT PRN; Protocol PRN Reason: Hypoglycemia Protocol Piperacillin Sod/Tazobactam (Sod 3.375 gm/ Sodium Chloride) 100 mls @ 200 mls/hr IVPB Q8 [facility]; Protocol Last Admin: 06/06/18 13:20 Dose: 200 mls/hr Dextrose (Dextrose 5% In Water 1000 Ml) 1,000 mls @ 0 mls/hr IV .Q0M PRN; Protocol PRN Reason: Hypoglycemia Protocol Insulin Aspart (Novolog) 0 unit SC ACHS [facility]; Protocol Last Admin: 06/06/18 13:20 Dose: 3 units Loratadine (Claritin) 10 mg PO DAILY [facility] Last Admin: 06/06/18 10:35 Dose: 10 mg Magnesium Oxide (Mag-Ox) 400 mg PO DAILY [facility] Stop: 06/07/18 10:01 Last Admin: 06/06/18 10:35 Dose: 400 mg Methylprednisolone (Solu-Medrol) 40 mg IVP Q8 [facility] Last Admin: 06/06/18 13:18 Dose: 40 mg Pantoprazole Sodium (Protonix Ec Tab) 40 mg PO DAILY [facility] Last Admin: 06/06/18 10:35 Dose: 40 mg Tramadol HCl (Ultram) 50 mg PO Q6 PRN PRN Reason: Pain, moderate (4-7) Last Admin: 06/05/18 12:32 Dose: 50 mg - Labs Labs: 06/05/18 00:14 06/05/18 00:14 PT 12.5 SECONDS (9.7-12.2) H 06/05/18 00:14 INR 1.1 06/05/18 00:14 APTT 40 SECONDS (21-34) H 06/05/18 00:14 Attending/Attestation - Attestation I have personally seen and examined this patient.: Yes I have fully participated in the care of the patient.: Yes I have reviewed all pertinent clinical information, including history, physical exam and plan: Yes Notes (Text): 06/06/18 15:23 Patient seen and examined Breathing better with slight chest wall discomfort Continue present treatment for now Start tapering steroids from tomorrow
--- NOTE | 2018-06-06 19:46 | CP.PCM.PN ---
Subjective - Date & Time of Evaluation Date of Evaluation: 06/06/18 - Subjective Subjective: patient seen and examined today no nausea no vomiting no fever no diarrhea no shortness of breath no dizziness Objective - Vital Signs/Intake and Output Vital Signs (last 24 hours): Temp Pulse Resp BP Pulse Ox 98.5 F 99 H 20 116/62 96 06/06/18 16:30 06/06/18 16:30 06/06/18 16:30 06/06/18 16:30 06/06/18 16:30 - Medications Medications: Current Medications Acetaminophen (Tylenol 325mg Tab) 650 mg PO Q6 PRN PRN Reason: Pain, Mild (1-3) Albuterol/Ipratropium (Duoneb 3 Mg/0.5 Mg (3 Ml) Ud) 3 ml INH RQ4 PRN PRN Reason: Shortness of Breath Last Admin: 06/05/18 20:11 Dose: 3 ml Amlodipine Besylate (Norvasc) 5 mg PO DAILY [facility] Last Admin: 06/06/18 10:35 Dose: 5 mg Arformoterol Tartrate (Brovana) 15 mcg INH RQ12 [facility] Budesonide (Pulmicort Respules) 0.25 mg INH RQ12 [facility] Last Admin: 06/06/18 08:00 Dose: Not Given Dextrose (Dextrose 50% Inj) 0 ml IV STAT PRN; Protocol PRN Reason: Hypoglycemia Protocol Dextrose (Glutose 15) 0 gm PO ONCE PRN; Protocol PRN Reason: Hypoglycemia Protocol Enoxaparin Sodium (Lovenox) 40 mg SC DAILY [facility] Last Admin: 06/06/18 10:35 Dose: 40 mg Glimepiride (Amaryl) 2 mg PO DAILY [facility] Last Admin: 06/06/18 10:35 Dose: 2 mg Glucagon (Glucagen Diagnostic Kit) 0 mg IM STAT PRN; Protocol PRN Reason: Hypoglycemia Protocol Piperacillin Sod/Tazobactam (Sod 3.375 gm/ Sodium Chloride) 100 mls @ 200 mls/hr IVPB Q8 [facility]; Protocol Last Admin: 06/06/18 13:20 Dose: 200 mls/hr Dextrose (Dextrose 5% In Water 1000 Ml) 1,000 mls @ 0 mls/hr IV .Q0M PRN; Protocol PRN Reason: Hypoglycemia Protocol Insulin Aspart (Novolog) 0 unit SC ACHS [facility]; Protocol Last Admin: 06/06/18 17:25 Dose: 4 units Loratadine (Claritin) 10 mg PO DAILY [facility] Last Admin: 06/06/18 10:35 Dose: 10 mg Magnesium Oxide (Mag-Ox) 400 mg PO DAILY [facility] Stop: 06/07/18 10:01 Last Admin: 06/06/18 10:35 Dose: 400 mg Methylprednisolone (Solu-Medrol) 40 mg IVP Q8 [facility] Last Admin: 06/06/18 13:18 Dose: 40 mg Pantoprazole Sodium (Protonix Ec Tab) 40 mg PO DAILY [facility] Last Admin: 06/06/18 10:35 Dose: 40 mg Tramadol HCl (Ultram) 50 mg PO Q6 PRN PRN Reason: Pain, moderate (4-7) Last Admin: 06/05/18 12:32 Dose: 50 mg - Labs Labs: 06/05/18 00:14 06/05/18 00:14 PT 12.5 SECONDS (9.7-12.2) H 06/05/18 00:14 INR 1.1 06/05/18 00:14 APTT 40 SECONDS (21-34) H 06/05/18 00:14 - Constitutional Appears: Well - Head Exam Head Exam: ATRAUMATIC, NORMAL INSPECTION, NORMOCEPHALIC - Eye Exam Eye Exam: EOMI, Normal appearance, PERRL Pupil Exam: NORMAL ACCOMODATION, PERRL - ENT Exam ENT Exam: Mucous Membranes Moist, Normal Exam - Neck Exam Neck Exam: Full ROM, Normal Inspection. absent: Lymphadenopathy - Respiratory Exam Respiratory Exam: Decreased Breath Sounds - Cardiovascular Exam Cardiovascular Exam: REGULAR RHYTHM, +S1, +S2 - GI/Abdominal Exam GI & Abdominal Exam: Soft, Diminished Bowel Sounds - Rectal Exam Rectal Exam: Deferred - Neurological Exam Neurological Exam: Oriented x3 Assessment and Plan (1) COPD exacerbation Status: Acute (2) Dyspnea Status: Acute (3) Respiratory distress Status: Acute (4) Acute mastitis of right breast Status: Acute (5) Arthritis Status: Acute (6) Cellulitis Status: Acute (7) Chest pain Status: Acute (8) Constipation Status: Acute (9) Dehydration Status: Acute (10) Fever Status: Acute (11) Foot pain Status: Acute (12) Generalized weakness Status: Acute (13) Hand pain Status: Acute (14) Intractable abdominal pain Status: Acute (15) Left against medical advice Status: Acute (16) Lung nodule Status: Acute (17) Metatarsal fracture Status: Acute (18) Nerve entrapment syndrome of foot Status: Acute (19) SOB (shortness of breath) Status: Acute (20) Syncope, near Status: Acute (21) Tailors bunion Status: Acute (22) UTI (urinary tract infection) Status: Acute (23) Vertigo Status: Acute (24) Anemia Status: Chronic (25) Asthma Status: Chronic (26) Diabetes Status: Chronic (27) Hx of breast cancer Status: Chronic - Assessment and Plan (Free Text) Plan: medications reviewed labs reviewed vitals reviewed amaryl brovana claritin dextrose 5% in water dextrose 50% inj duoneb glucagen diagnostic kit glutose 15 lovenox MAG-OX norvasc novolog piperacillin sod/tazobactam sodium protonix pulmicort respules solu-medrol tylenol ultram
[2018-06-06] MEDS: Albuterol-Ipratrop 3 mg / 0.5 (3 ml) UD INH PRN (19:55)
[2018-06-07] MEDS: MethylPREDNISolone 40 mg Vial IVP SCH (05:31)
[2018-06-07] MEDS: Piperacillin/Tazobact 3.375 GM in Sodium Chloride 0.9% 100 ML IVPB SCH ×2 (05:31→14:41)
[2018-06-07] MEDS: Budesonide 0.25 mg/2 ml Inhal Susp UD INH SCH (07:10)
[2018-06-07 07:20] LABS: SQUAMOUS EPITHIAL < 1 /hpf (0-5); URINE BILIRUBIN NEGATIVE (NEGATIVE); URINE BLOOD NEGATIVE (NEGATIVE); URINE CLARITY Clear (Clear); URINE COLOR Yellow (YELLOW); URINE GLUCOSE (UA) 3+ mg/dL (Normal); URINE LEUKOCYTE ESTERASE NEG Leu/uL (Negative); URINE PROTEIN NEGATIVE (NEGATIVE); URINE UROBILINOGEN NORMAL mg/dL (0.2-1.0)
[2018-06-07 07:53] VITALS: BP 104/58; TEMP 98.4; O2SAT 94
[2018-06-07] MEDS: (Novolog) Insulin Aspart, Recombinant 100 u/ml 10 ml vial SC SCH ×2 (08:57→12:46)
[2018-06-07] MEDS ORDERED: Pneumococcal 23-Valent Vaccine IM ONE (10:00)
[2018-06-07] MEDS: Magnesium Oxide 400 mg Tab UD PO SCH (10:14)
[2018-06-07] MEDS: Pantoprazole 40 mg EC Tab PO SCH (10:15)
[2018-06-07] MEDS: Enoxaparin 40 mg Syringe SC SCH (10:15)
--- NOTE | 2018-06-07 11:40 | CP.PCM.PN ---
Subjective - Date & Time of Evaluation Date of Evaluation: 06/07/18 Time of Evaluation: 11:35 - Subjective Subjective: Pulm Progress Note for Dr. Bazan's service S/E at bedside. Daughter present during interview Reports improved cough and sob Daughter shared CT report which showed small nodules in lung w/ history of breast cancer in past. Recommended patient followup with Dr. Gray and Dr. Ananth Stewart. Denies f,c, cp, sob, n/v. Objective - Vital Signs/Intake and Output Vital Signs (last 24 hours): Temp Pulse Resp BP Pulse Ox 98.4 F 87 20 104/58 L 94 L 06/07/18 07:05 06/07/18 07:09 06/07/18 07:05 06/07/18 07:05 06/07/18 07:05 - Medications Medications: Current Medications Acetaminophen (Tylenol 325mg Tab) 650 mg PO Q6 PRN PRN Reason: Pain, Mild (1-3) Albuterol/Ipratropium (Duoneb 3 Mg/0.5 Mg (3 Ml) Ud) 3 ml INH RQ4 PRN PRN Reason: Shortness of Breath Last Admin: 06/06/18 19:55 Dose: 3 ml Amlodipine Besylate (Norvasc) 5 mg PO DAILY ANUJA Last Admin: 06/07/18 10:13 Dose: 5 mg Arformoterol Tartrate (Brovana) 15 mcg INH RQ12 ANUJA Budesonide (Pulmicort Respules) 0.25 mg INH RQ12 ANUJA Last Admin: 06/07/18 07:10 Dose: Not Given Dextrose (Dextrose 50% Inj) 0 ml IV STAT PRN; Protocol PRN Reason: Hypoglycemia Protocol Dextrose (Glutose 15) 0 gm PO ONCE PRN; Protocol PRN Reason: Hypoglycemia Protocol Enoxaparin Sodium (Lovenox) 40 mg SC DAILY [facility] Last Admin: 06/07/18 10:15 Dose: 40 mg Glimepiride (Amaryl) 2 mg PO DAILY ANUJA Last Admin: 06/07/18 10:13 Dose: 2 mg Glucagon (Glucagen Diagnostic Kit) 0 mg IM STAT PRN; Protocol PRN Reason: Hypoglycemia Protocol Piperacillin Sod/Tazobactam (Sod 3.375 gm/ Sodium Chloride) 100 mls @ 200 mls/hr IVPB Q8 ANUJA; Protocol Last Admin: 06/07/18 05:31 Dose: 200 mls/hr Dextrose (Dextrose 5% In Water 1000 Ml) 1,000 mls @ 0 mls/hr IV .Q0M PRN; Protocol PRN Reason: Hypoglycemia Protocol Insulin Aspart (Novolog) 0 unit SC ACHS [facility]; Protocol Last Admin: 06/07/18 08:57 Dose: 4 units Loratadine (Claritin) 10 mg PO DAILY [facility] Last Admin: 06/07/18 10:14 Dose: 10 mg Methylprednisolone (Solu-Medrol) 20 mg IVP DAILY [facility] Pantoprazole Sodium (Protonix Ec Tab) 40 mg PO DAILY [facility] Last Admin: 06/07/18 10:15 Dose: 40 mg Tramadol HCl (Ultram) 50 mg PO Q6 PRN PRN Reason: Pain, moderate (4-7) Last Admin: 06/06/18 20:40 Dose: 50 mg - Labs Labs: 06/05/18 00:14 06/05/18 00:14 PT 12.5 SECONDS (9.7-12.2) H 06/05/18 00:14 INR 1.1 06/05/18 00:14 APTT 40 SECONDS (21-34) H 06/05/18 00:14 - Constitutional Appears: Non-toxic, No Acute Distress - Head Exam Head Exam: NORMAL INSPECTION, NORMOCEPHALIC - Eye Exam Eye Exam: EOMI, Normal appearance - ENT Exam ENT Exam: Mucous Membranes Moist - Respiratory Exam Respiratory Exam: Clear to Ausculation Bilateral, NORMAL BREATHING PATTERN - Cardiovascular Exam Cardiovascular Exam: REGULAR RHYTHM, +S1, +S2 - GI/Abdominal Exam GI & Abdominal Exam: Soft, Normal Bowel Sounds - Neurological Exam Neurological Exam: Alert, Oriented x3 - Skin Skin Exam: Dry, Intact, Normal Color Assessment and Plan - Assessment and Plan (Free Text) Assessment: 67 year old female with PMHx of asthma, bronchitis, COPD, PNA, HTN, arthritis who presents with shortness of breath most likely COPD exacerbation Plan: A: COPD exacerbation HTN chronic pain 2/2 arthritis and prior surgical procedures on foot DM2 P: Duonebs q4h PRN Brovana BID Pulmicort BID IV methlprednisolone 20 daily; decreased steroids and can be discharged without steroids IV peptazo further medical management as per primary team Recommend outpatient followup for Chest CT findings with small nodules, recommended Dr. Gray who the daughter was aware of. PGY-1 Savannah Hernandez Case d/w Dr. Bazan
[2018-06-07 12:28] VITALS: PULSE 93
--- NOTE | 2018-06-07 13:12 | CP.PCM.PN ---
Subjective - Date & Time of Evaluation Date of Evaluation: 06/07/18 - Subjective Subjective: patient seen and examined today no nausea no vomiting no diarrhea no fever no dizziness no shortness of breath Objective - Vital Signs/Intake and Output Vital Signs (last 24 hours): Temp Pulse Resp BP Pulse Ox 98.4 F 93 H 20 104/58 L 94 L 06/07/18 07:05 06/07/18 11:43 06/07/18 07:05 06/07/18 07:05 06/07/18 07:05 - Medications Medications: Current Medications Acetaminophen (Tylenol 325mg Tab) 650 mg PO Q6 PRN PRN Reason: Pain, Mild (1-3) Albuterol/Ipratropium (Duoneb 3 Mg/0.5 Mg (3 Ml) Ud) 3 ml INH RQ4 PRN PRN Reason: Shortness of Breath Last Admin: 06/06/18 19:55 Dose: 3 ml Amlodipine Besylate (Norvasc) 5 mg PO DAILY [facility] Last Admin: 06/07/18 10:13 Dose: 5 mg Arformoterol Tartrate (Brovana) 15 mcg INH RQ12 ANUJA Budesonide (Pulmicort Respules) 0.25 mg INH RQ12 ANUJA Last Admin: 06/07/18 07:10 Dose: Not Given Dextrose (Dextrose 50% Inj) 0 ml IV STAT PRN; Protocol PRN Reason: Hypoglycemia Protocol Dextrose (Glutose 15) 0 gm PO ONCE PRN; Protocol PRN Reason: Hypoglycemia Protocol Enoxaparin Sodium (Lovenox) 40 mg SC DAILY [facility] Last Admin: 06/07/18 10:15 Dose: 40 mg Glimepiride (Amaryl) 2 mg PO DAILY [facility] Last Admin: 06/07/18 10:13 Dose: 2 mg Glucagon (Glucagen Diagnostic Kit) 0 mg IM STAT PRN; Protocol PRN Reason: Hypoglycemia Protocol Piperacillin Sod/Tazobactam (Sod 3.375 gm/ Sodium Chloride) 100 mls @ 200 mls/hr IVPB Q8 [facility]; Protocol Last Admin: 06/07/18 05:31 Dose: 200 mls/hr Dextrose (Dextrose 5% In Water 1000 Ml) 1,000 mls @ 0 mls/hr IV .Q0M PRN; Protocol PRN Reason: Hypoglycemia Protocol Insulin Aspart (Novolog) 0 unit SC ACHS [facility]; Protocol Last Admin: 06/07/18 12:46 Dose: 8 units Loratadine (Claritin) 10 mg PO DAILY [facility] Last Admin: 06/07/18 10:14 Dose: 10 mg Methylprednisolone (Solu-Medrol) 20 mg IVP DAILY [facility] Pantoprazole Sodium (Protonix Ec Tab) 40 mg PO DAILY [facility] Last Admin: 06/07/18 10:15 Dose: 40 mg Tramadol HCl (Ultram) 50 mg PO Q6 PRN PRN Reason: Pain, moderate (4-7) Last Admin: 06/06/18 20:40 Dose: 50 mg - Labs Labs: 06/05/18 00:14 06/05/18 00:14 PT 12.5 SECONDS (9.7-12.2) H 06/05/18 00:14 INR 1.1 06/05/18 00:14 APTT 40 SECONDS (21-34) H 06/05/18 00:14 - Constitutional Appears: Well - Head Exam Head Exam: ATRAUMATIC, NORMAL INSPECTION, NORMOCEPHALIC - Eye Exam Eye Exam: EOMI, Normal appearance, PERRL Pupil Exam: NORMAL ACCOMODATION, PERRL - ENT Exam ENT Exam: Mucous Membranes Moist, Normal Exam - Neck Exam Neck Exam: Full ROM, Normal Inspection. absent: Lymphadenopathy - Respiratory Exam Respiratory Exam: Decreased Breath Sounds - Cardiovascular Exam Cardiovascular Exam: REGULAR RHYTHM, +S1, +S2 - GI/Abdominal Exam GI & Abdominal Exam: Soft, Diminished Bowel Sounds - Rectal Exam Rectal Exam: Deferred - Neurological Exam Neurological Exam: Oriented x3 Assessment and Plan (1) COPD exacerbation Status: Acute (2) Dyspnea Status: Acute (3) Respiratory distress Status: Acute (4) Acute mastitis of right breast Status: Acute (5) Arthritis Status: Acute (6) Cellulitis Status: Acute (7) Chest pain Status: Acute (8) Constipation Status: Acute (9) Dehydration Status: Acute (10) Fever Status: Acute (11) Foot pain Status: Acute (12) Generalized weakness Status: Acute (13) Hand pain Status: Acute (14) Intractable abdominal pain Status: Acute (15) Left against medical advice Status: Acute (16) Lung nodule Status: Acute (17) Metatarsal fracture Status: Acute (18) Nerve entrapment syndrome of foot Status: Acute (19) SOB (shortness of breath) Status: Acute (20) Syncope, near Status: Acute (21) Tailors bunion Status: Acute (22) UTI (urinary tract infection) Status: Acute (23) Vertigo Status: Acute (24) Anemia Status: Chronic (25) Asthma Status: Chronic (26) Diabetes Status: Chronic (27) Hx of breast cancer Status: Chronic - Assessment and Plan (Free Text) Plan: amaryl brovana claritin dextrose 5% in water dextrose 50% inj duoneb glucagen diagnostic kit glutose 15 lovenox MAG-OX norvasc novolog piperacillin sod/tazobactam sodium protonix pulmicort respules solu-medrol tylenol ultram medications reviewed vitals reviewed labs reviewed
--- NOTE | 2018-06-07 14:05 | CP.PCM.PN ---
Subjective - Date & Time of Evaluation Date of Evaluation: 06/07/18 Time of Evaluation: 14:04 - Subjective Subjective: PATIENT WAS ADMITTED FOR COPD COMPLAINING OF SOB DENIES CHEST PAIN CONSTIPATION OR HEART PALPITATION Objective - Vital Signs/Intake and Output Vital Signs (last 24 hours): Temp Pulse Resp BP Pulse Ox 98.4 F 93 H 20 104/58 L 94 L 06/07/18 07:05 06/07/18 11:43 06/07/18 07:05 06/07/18 07:05 06/07/18 07:05 - Medications Medications: Current Medications Acetaminophen (Tylenol 325mg Tab) 650 mg PO Q6 PRN PRN Reason: Pain, Mild (1-3) Albuterol/Ipratropium (Duoneb 3 Mg/0.5 Mg (3 Ml) Ud) 3 ml INH RQ4 PRN PRN Reason: Shortness of Breath Last Admin: 06/06/18 19:55 Dose: 3 ml Amlodipine Besylate (Norvasc) 5 mg PO DAILY [facility] Last Admin: 06/07/18 10:13 Dose: 5 mg Arformoterol Tartrate (Brovana) 15 mcg INH RQ12 ANUJA Budesonide (Pulmicort Respules) 0.25 mg INH RQ12 ANUJA Last Admin: 06/07/18 07:10 Dose: Not Given Dextrose (Dextrose 50% Inj) 0 ml IV STAT PRN; Protocol PRN Reason: Hypoglycemia Protocol Dextrose (Glutose 15) 0 gm PO ONCE PRN; Protocol PRN Reason: Hypoglycemia Protocol Enoxaparin Sodium (Lovenox) 40 mg SC DAILY [facility] Last Admin: 06/07/18 10:15 Dose: 40 mg Glimepiride (Amaryl) 2 mg PO DAILY [facility] Last Admin: 06/07/18 10:13 Dose: 2 mg Glucagon (Glucagen Diagnostic Kit) 0 mg IM STAT PRN; Protocol PRN Reason: Hypoglycemia Protocol Piperacillin Sod/Tazobactam (Sod 3.375 gm/ Sodium Chloride) 100 mls @ 200 mls/hr IVPB Q8 ANUJA; Protocol Last Admin: 06/07/18 05:31 Dose: 200 mls/hr Dextrose (Dextrose 5% In Water 1000 Ml) 1,000 mls @ 0 mls/hr IV .Q0M PRN; Protocol PRN Reason: Hypoglycemia Protocol Insulin Aspart (Novolog) 0 unit SC ACHS [facility]; Protocol Last Admin: 06/07/18 12:46 Dose: 8 units Loratadine (Claritin) 10 mg PO DAILY [facility] Last Admin: 06/07/18 10:14 Dose: 10 mg Methylprednisolone (Solu-Medrol) 20 mg IVP DAILY [facility] Pantoprazole Sodium (Protonix Ec Tab) 40 mg PO DAILY [facility] Last Admin: 06/07/18 10:15 Dose: 40 mg Tramadol HCl (Ultram) 50 mg PO Q6 PRN PRN Reason: Pain, moderate (4-7) Last Admin: 06/06/18 20:40 Dose: 50 mg - Labs Labs: 06/05/18 00:14 06/05/18 00:14 PT 12.5 SECONDS (9.7-12.2) H 06/05/18 00:14 INR 1.1 06/05/18 00:14 APTT 40 SECONDS (21-34) H 06/05/18 00:14 - Respiratory Exam Respiratory Exam: Clear to Ausculation Bilateral - Cardiovascular Exam Cardiovascular Exam: REGULAR RHYTHM, +S1, +S2 Assessment and Plan - Assessment and Plan (Free Text) Assessment: FOLLOW UP WITH DR Guadalupe GONZALEZ IN HIS OFFICE CONTINUE HOME MEDICATION NEW PRESCRIPTION GIVEN AUGMENTIN PO Q12H FOR 3 DAYS ZITHROMAX 1 CAP PO DAILY FOR 5 DAYS BACID 1 TAB PO BID FOR 5 DAYS SINGULAIR 1 TAB PO DAILY PREDNISONE 20 MG PO DAILY FOR 5 DAYS ACTIVITY TOLERATED CALL DR Guadalupe GONZALEZ OR GO TO THE EMERGENCY ROOM IF SYMPTOM RETURN OR WORSENING DISCUSS WITH PATIENT AND FAMILY AT THE BEDSIDE WHO AGREE AND VERBALIZED UNDERSTANDING
[2018-06-08] MEDS ORDERED: MethylPREDNISolone 40 mg Vial IVP SCH (10:00)
== END 2018-06-07 15:25 | disposition home or self-care (01) ==
LOC: C.ER 22:27 → C.6T 06-05 01:50
PROVIDERS: ADMIT Internal Medicine Nephrology; ATTEND Internal Medicine Nephrology
DX: J44.1 Chronic obstructive pulmonary disease with (acute) exacerbation (principal); E11.41 Type 2 diabetes mellitus with diabetic mononeuropathy; E86.0 Dehydration; G89.29 Other chronic pain; H81.10 Benign paroxysmal vertigo, unspecified ear; I10 Essential (primary) hypertension; N61.0 Mastitis without abscess; L03.90 Cellulitis, unspecified; M19.90 Unspecified osteoarthritis, unspecified site; D64.9 Anemia, unspecified; M21.629 Bunionette of unspecified foot; N39.0 Urinary tract infection, site not specified; S92.309A Fracture of unspecified metatarsal bone(s), unspecified foot, initial encounter for closed fracture; K59.00 Constipation, unspecified; F17.200 Nicotine dependence, unspecified, uncomplicated; Z85.3 Personal history of malignant neoplasm of breast; Z87.01 Personal history of pneumonia (recurrent); Z87.442 Personal history of urinary calculi; Z90.49 Acquired absence of other specified parts of digestive tract; Z80.49 Family history of malignant neoplasm of other genital organs; Z82.5 Family history of asthma and other chronic lower respiratory diseases
CPT/HCPCS: 36415; 71045; 80053; 81001; 82803; 82948; 83735; 85025; 85378; 85610; 85730; 94640; 96365; 96374; 97116; 97162; 99285; G0378; G8978; G8979; J1650; J2543; J2920; J2930; J3475